=== PATIENT | female | born 1935 | race Caucasian/White ===

== ENCOUNTER 2016-09-05 07:30 | Inpatient (IN) | payer MEDICARE, BC ==
--- NOTE | 2016-08-22 16:41 | NUR ---
JOINT REPLACEMENT PREOP CLASS PATIENT ATTENDED JOINT REPLACEMENT PREOP CLASS. CASE MANAGEMENT CONTACT INFORMATION PROVIDED. EDUCATION WAS PROVIDED REGARDING WHAT TO EXPECT BEFORE, DURING AND AFTER SURGERY. INCLUDING: OVERVIEW OF ANATOMY AND PHYSIOLOGY HOSPITAL TREATMENT SCHEDULE THERAPY DEMONSTRATION CASE MANAGEMENT RESPONSIBILITIES DISCHARGE PLANNING EQUIPMENT NEEDS JOINT REPLACEMENT WORKBOOK ANTI-COAGULATION SURGERY STRONG NUTRITIONAL PROTOCOL DISCHARGE INSTRUCTIONS [facility] PATIENT PORTAL, WITH INSTRUCTIONS CJR AND PREOP SURVERY PREOP BATHING- CHG GIVEN ALL PATIENT'S QUESTIONS ANSWERED TO THEIR SATISFACTION. PATIENTS AND COACHES ENCOURAGED TO CALL WITH ANY ADDITIONAL QUESTIONS OR CONCERNS. CM FOLLOWING FOR TRANSITIONAL CARE PLANNING NEEDS DURING HOSPITALIZATION.
--- NOTE | 2016-08-30 10:52 | NUR ---
Prescription meds reviewed with patient to clarify discrepancies between PCP, Ortho, and patient provided list. Patient checked her meds with dosages on the Rx bottles at home during this phone call and seemed very clear with the times she took them. Courtesy letter faxed to Dr Petty, ortho med list corrected, changes made in [place] acute.
[~2016-09-05] VITALS: Ht 162.6 cm; Wt 57.2 kg
[2016-09-05] VITALS (22 sets, daily range): BP systolic 116–179; BP diastolic 57–84; PULSE 79–93; RESP 13–23; TEMP 97–97.7; O2SAT 84–97; Ht 162.6 cm; Wt 57.2 kg
[~2016-09-05 07:30] MED LIST: ACETAMINOPHEN 500 MG TABLET PO ONE; ASCO10007 PO; BIOT5000 PO; CALC1TAB PO; CINN500C14 PO; CRAN500C3 PO; DEXAMETHASONE 4mg/ml - 1ml INJECTION IV ONE; FAMOTIDINE 20mg IVPB 50 ML IV ONE; FURO20TA4 PO; LETR2.5T PO; LIDOCAINE 1% (10mg/ml) 2ml SDV SQ ONE; LISI-621 PO; LORA0.5T2 PO; METOCLOPRAMIDE 10mg/2ml INJECTION IV ONE; MULT-980 PO; NORMAL SALINE 1,000 ML IV SCH; NOZIN NASAL SWAB NS ONE; ONDANSETRON 4mg/2ml INJECTION IV ONE; VITA-357 PO
--- OUTSIDE RECORDS SUMMARY | 2016-09-05 08:13 | XMS REPORT | Continuity of Care Document ---
Author Author [facility] Organization [facility] Address [address] [place] [address] ;ext= Care Team Providers Care Accreditation Manager Name Role Phone Romain BARROSO Admitting Physician [phone] Romain BARROSO Attending Physician [phone] Juanito GARZON CP [phone] Hospital Admission Diagnosis Code Admission Diagnosis Date [id number] Derangement of medial meniscus Social History Element Description Code Description Smoking Status Code System Start Date End Date Smoking Status [id number] Never smoker SNOMED-CT Problems Code Code System Problem Name Start Date End Date Status 97347795 SNOMED-CT Hypertensive disorder current Active BACK AND NECK PROBLEMS Unknown Active LEG STENT Unknown Active 500761853 SNOMED-CT Infective cystitis Unknown Active 58207108 SNOMED-CT Headache Unknown Active 7823147 SNOMED-CT Arthritis Unknown Active 531655621 SNOMED-CT Seasonal allergy Unknown Active 28799802 SNOMED-CT Hiatal hernia Unknown Active 780143141 SNOMED-CT (Carditis NOS) or (heart disease NOS) HX Active 711176577 SNOMED-CT Acute peptic ulcer NOS HX Active 247448589 SNOMED-CT Malignant tumor of breast HX Active 353258215 SNOMED-CT Allergy to pollen HX Active Medications RxNorm Medication Dose Route Instructions Indications Start Date End Date Status 009189 Acetaminophen 325 MG / Hydrocodone Bitartrate 5 MG Oral Tablet 1 tablet Oral orally every 4 to 6 hours as needed. pain Active 1151 Ascorbic Acid 1 gram Oral orally 2 times per day Active 1151 Ascorbic Acid Oral orally every day Active 1191 Aspirin 81 milligram Oral orally every day Active 1588 Biotin 1 milligram Oral orally 2 times a day Active 727236 Calcium Carbonate 1250 MG Oral Tablet 600 milligram Oral orally 3 times a day (administer after food or a meal) Active 186905 Calcium Carbonate 1500 MG Oral Tablet 600 milligram Oral orally 3 times a day (administer after food or a meal) Active cinnamon 500 mg Oral orally 2 times a day Active 08609 ferrous sulfate 325 milligram Oral orally every day Active 003883 Furosemide 20 MG Oral Tablet 20 milligram Oral orally every day Active 19991023 letrozole 2.5 MG Oral Tablet 2.5 milligram Oral orally every day Active 233395 Lisinopril 20 MG Oral Tablet 20 milligram Oral orally 2 times per day Active 6470 Lorazepam 0.5 milligram Oral orally every day at bedtime Active 6470 Lorazepam 0.5 milligram Oral orally every day at bedtime Active 6582 Magnesium Oxide 400 milligram Oral orally 2 times per day Active Multivitamins 1 capsule Oral orally every day Active 1472681 [place]-3 Acid Ethyl Esters (SHELTER) 1250 MG Oral Capsule 1000 milligram Oral orally 2 times a day (administer with food) Active 72345 Wheat germ oil 1000 unit Oral orally every day Active 469776 Amiodarone hydrochloride 200 MG Oral Tablet 200 milligram Oral orally every day (administer consistently in regards to food/meals) No Longer Active 95576 carvedilol 12.5 milligram Oral orally 2 times per day (administer with food) No Longer Active 075580 Fexofenadine hydrochloride 180 MG Oral Tablet 180 milligram Oral orally prn as needed. 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 There is new subchondral impaction deformityinvolving the posterior lateral femoral condyle adjacent to the resectedportion of the meniscus. The overlying cartilage appears intact.There has also been surgery to the medial meniscus. The posterior horn andbody free edge is truncated. Medial compartment cartilage is intact.The anterior and posterior cruciate ligaments are intact.The medial and lateral collateral ligament is complex is are intact.Quadriceps and patellar tendons are intact. Patellofemoral alignment ismaintained.Released By WILL GIBSON, MDDate: 06/16/2016 14:02 Vital Signs * No data in the system Plan of Care * No data in the system Procedures * No data in the system Encounters Date Code Diagnosis Status (ICD10) - D62367 OTH DERANG OTH MED MENISCUS LT KNEE Active Immunizations Vaccine Code Code System Vaccine Name Date Status 109 CVX pneumococcal vaccine, NOS 01/19/2011 Completed 88 CVX influenza virus vaccine, NOS 01/20/2012 Completed Functional Status * No data in the system Hospital Discharge Instructions * No data in the system
--- OUTSIDE RECORDS SUMMARY | 2016-09-05 08:13 | XMS REPORT | Continuity of Care Document ---
Author Author [facility] Organization [facility] Address [address] [place] [address] ;ext= Care Team Providers Care Supervisor Dental Laboratory Name Role Phone Manjula TORRES Admitting Physician [phone] Manjula TORRES Attending Physician [phone] Hospital Admission Diagnosis Code Admission Diagnosis Date [id number] Knee pain Social History Element Description Code Description Smoking Status Code System Start Date End Date Smoking Status [id number] Smoker, current status unknown SNOMED-CT Problems Code Code System Problem Name Start Date End Date Status 11260930 SNOMED-CT Hypertensive disorder current Active 092721688 SNOMED-CT (Carditis NOS) or (heart disease NOS) HX Active 521722341 SNOMED-CT Acute peptic ulcer NOS HX Active 837341172 SNOMED-CT Malignant tumor of breast HX Active 892212556 SNOMED-CT Allergy to pollen HX Active Medications RxNorm Medication Dose Route Instructions Indications Start Date End Date Status 813745 Amiodarone hydrochloride 200 MG Oral Tablet 200 milligram Oral orally every day (administer consistently in regards to food/meals) Active 1191 Aspirin 81 milligram Oral orally every day Active 99965 carvedilol 12.5 milligram Oral orally 2 times per day (administer with food) Active 355708 Fexofenadine hydrochloride 180 MG Oral Tablet 180 milligram Oral orally prn as needed. allergy symptoms Active 940665 Furosemide 20 MG Oral Tablet 20 milligram Oral orally every day Active Lactobacillus Bifidus 1 capsule Oral orally every day Active 901826 letrozole 2.5 MG Oral Tablet 2.5 milligram Oral orally every day Active 592569 Lisinopril 20 MG Oral Tablet 20 milligram Oral orally every day Active 6582 Magnesium Oxide 241.3 milligram Oral orally every day Active 612177 Potassium Chloride 10 MEQ Extended Release Oral Capsule 10 milliequivalent Oral orally every day Active Allergies * No Known Allergies Results Radiology Results Order: [id number] Tibia/fibula LT 2 views* Exam Completion Date:09/07/2015 14:56 INDICATION: pain lt knee LEFT TIBIA-FIBULA 2-VIEWS (AP & LAT): COMPARISON: NoneFINDINGS: There is no evidence of fracture, dislocation, or joint narrowing.IMPRESSION: Negative x-raysReleased By DESTINEE LESLIEate: 15:54 Order: [id number] Knee LT 3 views* Exam Completion Date:09/07/2015 14:56 INDICATION: PAINLEFT KNEE 3-VIEWS SUPINE (AP, INTERNAL OBL & LAT):COMPARISON: NoneFINDINGS: There is no evidence of fracture, dislocation, or joint narrowing.IMPRESSION: Negative x-raysReleased By DESTINEE LESLIEate: 15:54 Vital Signs * No data in the system Plan of Care * No data in the system Procedures * No data in the system Encounters Date Code Diagnosis Status (ICD10) - P89575 PAIN IN LEFT KNEE Active Immunizations Vaccine Code Code System Vaccine Name Date Status 109 CVX pneumococcal vaccine, NOS 01/19/2011 Completed 88 CVX influenza virus vaccine, NOS 01/20/2012 Completed Functional Status * No data in the system Hospital Discharge Instructions * No data in the system
--- OUTSIDE RECORDS SUMMARY | 2016-09-05 08:13 | XMS REPORT | Continuity of Care Document ---
Author Author [facility] Organization [facility] Address [address] [place] [address] ;ext= Care Team Providers Care Industrial Sales Manager Name Role Phone Romain BARROSO Admitting Physician [phone] Romain BARROSO Attending Physician [phone] Hospital Admission Diagnosis * No data in the System Social History Element Description Code Description Smoking Status Code System Start Date End Date Smoking Status 670416167 Unknown if ever smoked SNOMED-CT Problems Code Code System Problem Name Start Date End Date Status 60462650 SNOMED-CT Hypertensive disorder current Active BACK AND NECK PROBLEMS Unknown Active LEG STENT Unknown Active 153159796 SNOMED-CT Infective cystitis Unknown Active 01332806 SNOMED-CT Headache Unknown Active 8721036 SNOMED-CT Arthritis Unknown Active 629994981 SNOMED-CT Seasonal allergy Unknown Active 78542894 SNOMED-CT Hiatal hernia Unknown Active 782536987 SNOMED-CT (Carditis NOS) or (heart disease NOS) HX Active 765574038 SNOMED-CT Acute peptic ulcer NOS HX Active 995166293 SNOMED-CT Malignant tumor of breast HX Active 060693811 SNOMED-CT Allergy to pollen HX Active Medications RxNorm Medication Dose Route Instructions Indications Start Date End Date Status 119858 Acetaminophen 325 MG / Hydrocodone Bitartrate 5 MG Oral Tablet 1 tablet Oral orally every 4 to 6 hours as needed. pain Active 1151 Ascorbic Acid 1 gram Oral orally 2 times per day Active 1151 Ascorbic Acid Oral orally every day Active 1191 Aspirin 81 milligram Oral orally every day Active 1588 Biotin 1 milligram Oral orally 2 times a day Active 946077 Calcium Carbonate 1250 MG Oral Tablet 600 milligram Oral orally 3 times a day (administer after food or a meal) Active 396780 Calcium Carbonate 1500 MG Oral Tablet 600 milligram Oral orally 3 times a day (administer after food or a meal) Active cinnamon 500 mg Oral orally 2 times a day Active 68128 ferrous sulfate 325 milligram Oral orally every day Active 523439 Furosemide 20 MG Oral Tablet 20 milligram Oral orally every day Active 19991023 letrozole 2.5 MG Oral Tablet 2.5 milligram Oral orally every day Active 653251 Lisinopril 20 MG Oral Tablet 20 milligram Oral orally 2 times per day Active 6470 Lorazepam 0.5 milligram Oral orally every day at bedtime Active 6470 Lorazepam 0.5 milligram Oral orally every day at bedtime Active 6582 Magnesium Oxide 400 milligram Oral orally 2 times per day Active Multivitamins 1 capsule Oral orally every day Active 8784126 [place]-3 Acid Ethyl Esters (FCI) 1250 MG Oral Capsule 1000 milligram Oral orally 2 times a day (administer with food) Active 75705 Wheat germ oil 1000 unit Oral orally every day Active 553460 Amiodarone hydrochloride 200 MG Oral Tablet 200 milligram Oral orally every day (administer consistently in regards to food/meals) No Longer Active 61576 carvedilol 12.5 milligram Oral orally 2 times per day (administer with food) No Longer Active 413550 Fexofenadine hydrochloride 180 MG Oral Tablet 180 milligram Oral orally prn as needed. allergy symptoms No Longer Active Lactobacillus Bifidus 1 capsule Oral orally every day No Longer Active 19991023 letrozole 2.5 MG Oral Tablet 2.5 milligram Oral orally every day No Longer Active 584543 Potassium Chloride 10 MEQ Extended Release Oral Capsule 10 milliequivalent Oral orally every day No Longer Active Allergies * No Known Allergies Results Radiology Results Order: NBNJNWB NM Bone And/Or Joint Whole Body* Exam Completion Date:06/14/2016 13:52 INDICATION: C50.411 - Breast CA, R97.8 - ABN. Tumor Markers, Left knee pain,OA left kneeNM Bone And/Or Joint Whole Body: Technique: Approximately 24.6 millicuries oftechnetium 99m MDP were injected IV. Anterior and posterior planar images ofthe body were then obtained.Comparison: noneFindings: Right hip arthroplasty. No evidence of loosening or infection. Thereis mild degenerative appearing uptake in the lateral compartment of the leftknee. The whole body bone scan is otherwise negative. No evidence of skeletalmetastases.Released By DESTINEE CARSONate: 06/14/2016 14:54 Vital Signs * No data in the system Plan of Care * No data in the system Procedures * No data in the system Encounters * No data in the system Immunizations Vaccine Code Code System Vaccine Name Date Status 109 CVX pneumococcal vaccine, NOS 01/19/2011 Completed 88 CVX influenza virus vaccine, NOS 01/20/2012 Completed Functional Status * No data in the system Hospital Discharge Instructions * No data in the system
--- OUTSIDE RECORDS SUMMARY | 2016-09-05 08:13 | XMS REPORT | Continuity of Care Document ---
Author Author [facility] Organization [facility] Address [address] [place] [address] ;ext= Care Team Providers Care Wetlands Technician Name Role Phone Romain BARROSO Admitting Physician [phone] Romain BARROSO Attending Physician [phone] Hospital Admission Diagnosis Code Admission Diagnosis Date [id number] Idiopathic osteoarthritis Social History Element Description Code Description Smoking Status Code System Start Date End Date Smoking Status 5973140 Former smoker SNOMED-CT 2010 Problems Code Code System Problem Name Start Date End Date Status 10920552 SNOMED-CT Hypertensive disorder current Active BACK AND NECK PROBLEMS Unknown Active LEG STENT Unknown Active 563566886 SNOMED-CT Infective cystitis Unknown Active 36917402 SNOMED-CT Headache Unknown Active 9932331 SNOMED-CT Arthritis Unknown Active 725768606 SNOMED-CT Seasonal allergy Unknown Active 26147318 SNOMED-CT Hiatal hernia Unknown Active 822548207 SNOMED-CT (Carditis NOS) or (heart disease NOS) HX Active 682752671 SNOMED-CT Acute peptic ulcer NOS HX Active 606010381 SNOMED-CT Malignant tumor of breast HX Active 462522987 SNOMED-CT Allergy to pollen HX Active Medications RxNorm Medication Dose Route Instructions Indications Start Date End Date Status 097897 Acetaminophen 325 MG / Hydrocodone Bitartrate 5 MG Oral Tablet 1 tablet Oral orally every 4 to 6 hours as needed. pain Active 1151 Ascorbic Acid 1 gram Oral orally 2 times per day Active 1151 Ascorbic Acid Oral orally every day Active 1191 Aspirin 81 milligram Oral orally every day Active 1588 Biotin 1 milligram Oral orally 2 times a day Active 1897 Calcium Carbonate 600 milligram Oral orally 3 times a day (administer after food or a meal) Active cinnamon 500 mg Oral orally 2 times a day Active 17577 ferrous sulfate 325 milligram Oral orally every day Active 5359 Furosemide 20 milligram Oral orally every day Active 270293 letrozole 2.5 MG Oral Tablet 2.5 milligram Oral orally every day Active 72157 Lisinopril 20 milligram Oral orally 2 times per day Active 6470 Lorazepam 0.5 milligram Oral orally every day at bedtime Active 6470 Lorazepam 0.5 milligram Oral orally every day at bedtime Active 6582 Magnesium Oxide 400 milligram Oral orally 2 times per day Active Multivitamins 1 capsule Oral orally every day Active 0293628 [place]-3 Acid Ethyl Esters (CORRECTION) 1250 MG Oral Capsule 1000 milligram Oral orally 2 times a day (administer with food) Active 78466 Wheat germ oil 1000 unit Oral orally every day Active 703 Amiodarone 200 milligram Oral orally every day (administer consistently in regards to food/meals) No Longer Active 31495 carvedilol 12.5 milligram Oral orally 2 times per day (administer with food) No Longer Active 53152 fexofenadine 180 milligram Oral orally prn as needed. allergy symptoms No Longer Active Lactobacillus Bifidus 1 capsule Oral orally every day No Longer Active 187968 letrozole 2.5 MG Oral Tablet 2.5 milligram Oral orally every day No Longer Active 8591 Potassium Chloride 10 milliequivalent Oral orally every day No Longer Active Allergies * No Known Allergies Results Radiology Results Order: NBNJNWB NM Bone And/Or Joint Whole Body* Exam Completion Date:01/26/2016 14:30 INDICATION: M17.12 Unilateral primary osteoarthritis, LT knee; M23.332 Othermeniscus derangNM Bone And/Or Joint Whole Body: Technique: Approximately 29.0 millicuries oftechnetium 99m MDP were injected IV. Anterior and posterior planar images ofthe body were then obtained.Comparison: Limited area bone scan Findings: Allowing for differences in technique, the left knee has not changedsignificantly in appearance since 01/12/2016. Again seen is mild arthriticappearing uptake in the left knee. Right hip arthroplasty. No abnormal uptakeis identified about this arthroplasty. The whole body bone scan is otherwisenegative. No other abnormal foci of increased uptake are identified. Noevidence of acute fracture. No evidence of skeletal metastases.Released By BRAVO FERNANDEZ, MDDate: 01/27/2016 08:34 Vital Signs * No data in the system Plan of Care * No data in the system Procedures * No data in the system Encounters Date Code Diagnosis Status (ICD10) - M1712 UNI PRIM OSTEOARTHRITIS LT KNEE Active Immunizations Vaccine Code Code System Vaccine Name Date Status 109 CVX pneumococcal vaccine, NOS 01/19/2011 Completed 88 CVX influenza virus vaccine, NOS 01/20/2012 Completed Functional Status * No data in the system Hospital Discharge Instructions * No data in the system
--- OUTSIDE RECORDS SUMMARY | 2016-09-05 08:13 | XMS REPORT | Continuity of Care Document ---
Author Author [facility] Organization [facility] Address [address] [place] [address] ;ext= Care Team Providers Care Flight Control Specialist Name Role Phone Carlos Manuel DUARTE Admitting Physician [phone] Carlos Manuel DUARTE Attending Physician [phone] Hospital Admission Diagnosis Code Admission Diagnosis Date Derangement of medial meniscus Social History Element Description Code Description Smoking Status Code System Start Date End Date Smoking Status 7328557 Former smoker SNOMED-CT Problems Code Code System Problem Name Start Date End Date Status 62382136 SNOMED-CT Hypertensive disorder current Active 762428074 SNOMED-CT (Carditis NOS) or (heart disease NOS) HX Active 424533892 SNOMED-CT Acute peptic ulcer NOS HX Active 874692218 SNOMED-CT Malignant tumor of breast HX Active 974373137 SNOMED-CT Allergy to pollen HX Active Medications RxNorm Medication Dose Route Instructions Indications Start Date End Date Status 810852 Amiodarone hydrochloride 200 MG Oral Tablet 200 milligram Oral orally every day (administer consistently in regards to food/meals) Active 1191 Aspirin 81 milligram Oral orally every day Active 28641 carvedilol 12.5 milligram Oral orally 2 times per day (administer with food) Active 050997 Fexofenadine hydrochloride 180 MG Oral Tablet 180 milligram Oral orally prn as needed. allergy symptoms Active 912681 Furosemide 20 MG Oral Tablet 20 milligram Oral orally every day Active Lactobacillus Bifidus 1 capsule Oral orally every day Active 779063 letrozole 2.5 MG Oral Tablet 2.5 milligram Oral orally every day Active 807738 Lisinopril 20 MG Oral Tablet 20 milligram Oral orally every day Active 6582 Magnesium Oxide 241.3 milligram Oral orally every day Active 739387 Potassium Chloride 10 MEQ Extended Release Oral Capsule 10 milliequivalent Oral orally every day Active Allergies * No Known Allergies Results Radiology Results Order: MRLJLWO MR LT Low Ext Joint W/O Contrast* Exam Completion Date:2015 13:00 INDICATION: M23.332-Left other meniscus derangements, other medial meniscus, left kneeMR LT Low Ext Joint W/O Contrast: There is a tear of the posterior horn of themedial meniscus.Normal appearance of the cruciate ligaments. Normal appearance of thecollateral ligaments. Normal appearance of the lateral meniscus.No bone edema to suggest contusion or bruise. No cartilaginous injury. Noosteochondral defect. No bone bruise or contusion. No significant degenerativefindings. The patellar tendon is normal. Small joint effusion. Nochondromalacia of the patella.Released By MAEVE VALDIVIA, MDDate: 10/01/2015 14:24 Vital Signs * No data in the system Plan of Care * No data in the system Procedures * No data in the system Encounters Date Code Diagnosis Status (ICD10) - Q50479 OTH DERANG OTH MED MENISCUS LT KNEE Active Immunizations Vaccine Code Code System Vaccine Name Date Status 109 CVX pneumococcal vaccine, NOS 01/19/2011 Completed 88 CVX influenza virus vaccine, NOS 01/20/2012 Completed Functional Status * No data in the system Hospital Discharge Instructions * No data in the system
--- OUTSIDE RECORDS SUMMARY | 2016-09-05 08:14 | XMS REPORT | Continuity of Care Document ---
Author Author [facility] Organization [facility] Address [address] [place] [address] ;ext= Care Team Providers Care Laser Beam Machine Operator Name Role Phone Saulo AYALA Admitting Physician [phone] Saulo AYALA Attending Physician [phone] Hospital Admission Diagnosis Code Admission Diagnosis Date [id number] Derangement of medial meniscus Social History Element Description Code Description Smoking Status Code System Start Date End Date Smoking Status [id number] Former smoker SNOMED-CT 2010 Problems Code Code System Problem Name Start Date End Date Status 45142106 SNOMED-CT Hypertensive disorder current Active BACK AND NECK PROBLEMS Unknown Active LEG STENT Unknown Active [id number] SNOMED-CT Infective cystitis Unknown Active 80380358 SNOMED-CT Headache Unknown Active 9393617 SNOMED-CT Arthritis Unknown Active 526303627 SNOMED-CT Seasonal allergy Unknown Active 08081535 SNOMED-CT Hiatal hernia Unknown Active 825782254 SNOMED-CT (Carditis NOS) or (heart disease NOS) HX Active 522924846 SNOMED-CT Acute peptic ulcer NOS HX Active 849745094 SNOMED-CT Malignant tumor of breast HX Active 355834119 SNOMED-CT Allergy to pollen HX Active Medications RxNorm Medication Dose Route Instructions Indications Start Date End Date Status 617829 Acetaminophen 325 MG / Hydrocodone Bitartrate 5 MG Oral Tablet 1 tablet Oral orally every 4 to 6 hours as needed. pain Active 1151 Ascorbic Acid 1 gram Oral orally 2 times per day Active 1151 Ascorbic Acid Oral orally every day Active 1191 Aspirin 81 milligram Oral orally every day Active 1588 Biotin 1 milligram Oral orally 2 times a day Active 041398 Calcium Carbonate 1250 MG Oral Tablet 600 milligram Oral orally 3 times a day (administer after food or a meal) Active 306116 Calcium Carbonate 1500 MG Oral Tablet 600 milligram Oral orally 3 times a day (administer after food or a meal) Active cinnamon 500 mg Oral orally 2 times a day Active 11083 ferrous sulfate 325 milligram Oral orally every day Active 410989 Furosemide 20 MG Oral Tablet 20 milligram Oral orally every day Active 19991023 letrozole 2.5 MG Oral Tablet 2.5 milligram Oral orally every day Active 395261 Lisinopril 20 MG Oral Tablet 20 milligram Oral orally 2 times per day Active 6470 Lorazepam 0.5 milligram Oral orally every day at bedtime Active 6470 Lorazepam 0.5 milligram Oral orally every day at bedtime Active 6582 Magnesium Oxide 400 milligram Oral orally 2 times per day Active Multivitamins 1 capsule Oral orally every day Active 5389883 [place]-3 Acid Ethyl Esters (LONG TERM) 1250 MG Oral Capsule 1000 milligram Oral orally 2 times a day (administer with food) Active 44988 Wheat germ oil 1000 unit Oral orally every day Active 433269 Amiodarone hydrochloride 200 MG Oral Tablet 200 milligram Oral orally every day (administer consistently in regards to food/meals) No Longer Active 77919 carvedilol 12.5 milligram Oral orally 2 times per day (administer with food) No Longer Active 718462 Fexofenadine hydrochloride 180 MG Oral Tablet 180 milligram Oral orally prn as needed. allergy symptoms No Longer Active Lactobacillus Bifidus 1 capsule Oral orally every day No Longer Active 19991023 letrozole 2.5 MG Oral Tablet 2.5 milligram Oral orally every day No Longer Active 844977 Potassium Chloride 10 MEQ Extended Release Oral Capsule 10 milliequivalent Oral orally every day No Longer Active Allergies * No Known Allergies Results * No data in the system Vital Signs Vitals Value Date Body Temperature 98.1 F 11/25/2015 Respiratory Rate 20 11/25/2015 O2% BldC Oximetry 95 11/25/2015 BP Systolic 158 mmHg 11/25/2015 BP Diastolic 64 mmHg 11/25/2015 Height 64 in 11/25/2015 Weight Measured 120 lbs 11/25/2015 BSA (Body Surface Area) 1.37453 11/25/2015 BMI (Body Mass Index) 20.7 11/25/2015 Plan of Care * No data in the system Procedures Code Code System Procedure Name Target Site Date of Procedure 72894 CPT4 ARTHRS KNEE W/MENISCECTOMY MED&LAT W/SHA Encounters Date Code Diagnosis Status (ICD10) - Y94692 OTH DERANG OTH MED MENISCUS LT KNEE Active Immunizations Vaccine Code Code System Vaccine Name Date Status 109 CVX pneumococcal vaccine, NOS 01/19/2011 Completed 88 CVX influenza virus vaccine, NOS 01/20/2012 Completed Functional Status * No data in the system Hospital Discharge Instructions * Ortho* Discharge Instructions* We are giving you the following information and general instruction to help make your recovery go as smooth as possible. * It is very important to follow any verbal or written instructions your surgeon has given you along with the following: * You had medication and/or anesthesia that will make you drowsy today and even into tomorrow. * It is imperative that you: * - NOT drive, operate any power tools or machinery, or make important decisions until 24 hrs after your surgery. * - spend the rest of the day taking it easy and resting. * - have assistance when you are up to walk. * Pain* PAIN - If you need pain pills, start them before pain becomes intense. * Pain pills (as well as antibiotics) are less upsetting to your stomach if you take with food. * CONSTIPATION - medication may cause constipation - drink plenty of water and juice. * You may use an over the counter laxative, if needed. If it continues, contact physician. * MEDICATION(S) ORDERED BY YOUR SURGEON:* Cullen 5/325mg 2 tablets given at 4:00 PM. * Hydrocodone 5/325. Take 1-2 tablets every 4 hrs as needed for pain . * Take 1 Aspirin 325 mg twice a day for one month. * Post Operative Instructions* Keep dressing clean, dry, and in place. Physical therapy will do your first dressing change. Then you may go home shower, and apply a light non stick dressing. Do NOT put any ointment on incision sites. * Ice to extremity for 20 minutes every 2 hours for the 1st 48 hours then as needed. * Exercise toes and ankle frequently. * Straight leg raises (3 - 4 times per day) * Elevate affected extremity * Weight Bearing As Tolerated * PLEASE TAKE NOTE:* ~If you have excessive or persistant pain, swelling, bleeding, nausea, or vomiting. * ~Any signs of infection such as running a temperature, redness, swelling or drainage at incision, or other concerns, * ~ Call [facility] at [phone], any time 24 hr a day. * Dr. Ayala [phone] * YOUR NEXT APPOINTMENT IS:* Physical Thearpy starting tomorrow (11/26/15) at 11 :15 at [facility].Follow-up with 12/06/15 @ 3:00 PM in his [place] office.
--- OUTSIDE RECORDS SUMMARY | 2016-09-05 08:14 | XMS REPORT | Continuity of Care Document ---
Author Author [facility] Organization [facility] Address [address] [place] [address] ;ext= Care Team Providers Care Community Arts Worker Name Role Phone Carlos Manuel DUARTE Admitting Physician [phone] Carlos Manuel DUARTE Attending Physician [phone] Hospital Admission Diagnosis Code Admission Diagnosis Date [id number] Idiopathic osteoarthritis Social History Element Description Code Description Smoking Status Code System Start Date End Date Smoking Status [id number] Never smoker SNOMED-CT Problems Code Code System Problem Name Start Date End Date Status 90408232 SNOMED-CT Hypertensive disorder current Active BACK AND NECK PROBLEMS Unknown Active LEG STENT Unknown Active 547676282 SNOMED-CT Infective cystitis Unknown Active 71470649 SNOMED-CT Headache Unknown Active 4267366 SNOMED-CT Arthritis Unknown Active 397141660 SNOMED-CT Seasonal allergy Unknown Active 74611470 SNOMED-CT Hiatal hernia Unknown Active 384811453 SNOMED-CT (Carditis NOS) or (heart disease NOS) HX Active 057616411 SNOMED-CT Acute peptic ulcer NOS HX Active 941928150 SNOMED-CT Malignant tumor of breast HX Active 500111953 SNOMED-CT Allergy to pollen HX Active Medications RxNorm Medication Dose Route Instructions Indications Start Date End Date Status 255150 Acetaminophen 325 MG / Hydrocodone Bitartrate 5 MG Oral Tablet 1 tablet Oral orally every 4 to 6 hours as needed. pain Active 1151 Ascorbic Acid 1 gram Oral orally 2 times per day Active 1151 Ascorbic Acid Oral orally every day Active 1191 Aspirin 81 milligram Oral orally every day Active 1588 Biotin 1 milligram Oral orally 2 times a day Active 699119 Calcium Carbonate 1250 MG Oral Tablet 600 milligram Oral orally 3 times a day (administer after food or a meal) Active 296514 Calcium Carbonate 1500 MG Oral Tablet 600 milligram Oral orally 3 times a day (administer after food or a meal) Active cinnamon 500 mg Oral orally 2 times a day Active 57071 ferrous sulfate 325 milligram Oral orally every day Active 959821 Furosemide 20 MG Oral Tablet 20 milligram Oral orally every day Active 19991023 letrozole 2.5 MG Oral Tablet 2.5 milligram Oral orally every day Active 273527 Lisinopril 20 MG Oral Tablet 20 milligram Oral orally 2 times per day Active 6470 Lorazepam 0.5 milligram Oral orally every day at bedtime Active 6470 Lorazepam 0.5 milligram Oral orally every day at bedtime Active 6582 Magnesium Oxide 400 milligram Oral orally 2 times per day Active Multivitamins 1 capsule Oral orally every day Active 1656427 [place]-3 Acid Ethyl Esters (SENIOR CARE) 1250 MG Oral Capsule 1000 milligram Oral orally 2 times a day (administer with food) Active 48799 Wheat germ oil 1000 unit Oral orally every day Active 194848 Amiodarone hydrochloride 200 MG Oral Tablet 200 milligram Oral orally every day (administer consistently in regards to food/meals) No Longer Active 90025 carvedilol 12.5 milligram Oral orally 2 times per day (administer with food) No Longer Active 200108 Fexofenadine hydrochloride 180 MG Oral Tablet 180 milligram Oral orally prn as needed. allergy symptoms No Longer Active Lactobacillus Bifidus 1 capsule Oral orally every day No Longer Active 19991023 letrozole 2.5 MG Oral Tablet 2.5 milligram Oral orally every day No Longer Active 655288 Potassium Chloride 10 MEQ Extended Release Oral Capsule 10 milliequivalent Oral orally every day No Longer Active Allergies * No Known Allergies Results Radiology Results Order: [id number] NM Bone And/Or Join Limited Area* Exam Completion Date:2015 14:00 INDICATION: M17.12 Unilateral primary osteoarthritis, left kneeNM Bone And/Or Join Limited Area:Bone scan was performed of the knees following injection of 26.1 [id number] MDP.Findings: There is asymmetric increased activity within the lateral femoralcondyle of the right distal femur. There is also uptake within the patella. Onthe left there is focal uptake noted posteriorly within one of the femoralcondyles. This is not identified on the anterior or posterior planar images.The uptake is noted at the articular margin and is most likely from arthritis.Released By WILL GIBSON, MDDate: 01/12/2016 14:43 Vital Signs * No data in the [...]
--- OUTSIDE RECORDS SUMMARY | 2016-09-05 08:14 | XMS REPORT | Continuity of Care Document ---
Author Author [facility] Organization [facility] Address [address] [place] [address] ;ext= Care Team Providers Care Level Designer Name Role Phone Manjula TORRES Admitting Physician [phone] Manjula TORRES Attending Physician [phone] Hospital Admission Diagnosis Code Admission Diagnosis Date Elbow joint pain Social History Element Description Code Description Smoking Status Code System Start Date End Date Smoking Status 2346812 Former smoker SNOMED-CT Problems Code Code System Problem Name Start Date End Date Status 28394375 SNOMED-CT Hypertensive disorder current Active 531498078 SNOMED-CT (Carditis NOS) or (heart disease NOS) HX Active 677932467 SNOMED-CT Acute peptic ulcer NOS HX Active 245802394 SNOMED-CT Malignant tumor of breast HX Active 945010474 SNOMED-CT Allergy to pollen HX Active Medications RxNorm Medication Dose Route Instructions Indications Start Date End Date Status 269583 Amiodarone hydrochloride 200 MG Oral Tablet 200 milligram Oral orally every day (administer consistently in regards to food/meals) Active 1191 Aspirin 81 milligram Oral orally every day Active 08495 carvedilol 12.5 milligram Oral orally 2 times per day (administer with food) Active 116237 Fexofenadine hydrochloride 180 MG Oral Tablet 180 milligram Oral orally prn as needed. allergy symptoms Active 638623 Furosemide 20 MG Oral Tablet 20 milligram Oral orally every day Active Lactobacillus Bifidus 1 capsule Oral orally every day Active 736973 letrozole 2.5 MG Oral Tablet 2.5 milligram Oral orally every day Active 926103 Lisinopril 20 MG Oral Tablet 20 milligram Oral orally every day Active 6582 Magnesium Oxide 241.3 milligram Oral orally every day Active 214247 Potassium Chloride 10 MEQ Extended Release Oral Capsule 10 milliequivalent Oral orally every day Active Allergies * No Known Allergies Results Radiology Results Order: [id number] Elbow LT 3 views* Exam Completion Date:08/05/2015 15:25 INDICATION: pain lt forearmLEFT ELBOW 3-VIEWS (AP, OBLIQUE & LAT): COMPARISON: NoneFINDINGS: Left elbow joint effusion. If there has been acute trauma thissuggests an intra-articular fracture. There are fairly marked changes ofdegenerative arthritis in the left elbow however. These changes ofdegenerative arthritis could be the etiology of the effusion. If a fracture nasir possibility however a CT examination may be helpful. Released By BRAVO FERNANDEZ , MDDate: 08/05/2015 15:41 Order: [id number] Forearm LT 2 views* Exam Completion Date:08/05/2015 15:25 INDICATION: pain lt forearmLEFT FOREARM 2-VIEWS EACH ( AP & LAT): COMPARISON: NoneFINDINGS: Again seen are hypertrophic and degenerative changes in the leftelbow. The left forearm is negative. Released By BRAVO FERNANDEZ, DESTINEEate: 2015 15:42 Vital Signs * No data in the system Plan of Care * No data in the system Procedures * No data in the system Encounters Date Code Diagnosis Status (ICD10) - Y88480 PAIN IN LEFT ELBOW Active Immunizations Vaccine Code Code System Vaccine Name Date Status 109 CVX pneumococcal vaccine, NOS 01/19/2011 Completed 88 CVX influenza virus vaccine, NOS 01/20/2012 Completed Functional Status * No data in the system Hospital Discharge Instructions * No data in the system
--- OUTSIDE RECORDS SUMMARY | 2016-09-05 08:14 | XMS REPORT | Continuity of Care Document ---
Author Author [facility] Organization [facility] Address [address] [place] [address] ;ext= Care Team Providers Care Marketing Clerk Name Role Phone Manjula TORRES Admitting Physician [phone] Manjula TORRES Attending Physician [phone] Hospital Admission Diagnosis * No data in the System Social History Element Description Code Description Smoking Status Code System Start Date End Date Smoking Status 5636838 Former smoker SNOMED-CT Problems Code Code System Problem Name Start Date End Date Status 13132274 SNOMED-CT Hypertensive disorder current Active 912887765 SNOMED-CT (Carditis NOS) or (heart disease NOS) HX Active 696944558 SNOMED-CT Acute peptic ulcer NOS HX Active 972150954 SNOMED-CT Malignant tumor of breast HX Active 924729477 SNOMED-CT Allergy to pollen HX Active Medications RxNorm Medication Dose Route Instructions Indications Start Date End Date Status 336519 Amiodarone hydrochloride 200 MG Oral Tablet 200 milligram Oral orally every day (administer consistently in regards to food/meals) Active 1191 Aspirin 81 milligram Oral orally every day Active 03832 carvedilol 12.5 milligram Oral orally 2 times per day (administer with food) Active 272029 Fexofenadine hydrochloride 180 MG Oral Tablet 180 milligram Oral orally prn as needed. allergy symptoms Active 787425 Furosemide 20 MG Oral Tablet 20 milligram Oral orally every day Active Lactobacillus Bifidus 1 capsule Oral orally every day Active 459260 letrozole 2.5 MG Oral Tablet 2.5 milligram Oral orally every day Active 520547 Lisinopril 20 MG Oral Tablet 20 milligram Oral orally every day Active 6582 Magnesium Oxide 241.3 milligram Oral orally every day Active 072481 Potassium Chloride 10 MEQ Extended Release Oral Capsule 10 milliequivalent Oral orally every day Active Allergies * No Known Allergies Results Radiology Results Order: [id number] Elbow LT 3 views* Exam Completion Date:08/05/2015 [...] BRAVO FERNANDEZ , MDDate: 08/05/2015 15:41 Order: [id number] Forearm LT 2 views* Exam Completion Date:08/05/2015 15:25 INDICATION: pain lt forearmLEFT FOREARM 2-VIEWS EACH ( AP & LAT): COMPARISON: NoneFINDINGS: Again seen are hypertrophic and degenerative changes in the leftelbow. The left forearm is negative. Released By BRAVO FERNANDEZ, MDDate: 2015 15:42 Vital Signs * No data [...]
--- OUTSIDE RECORDS SUMMARY | 2016-09-05 08:14 | XMS REPORT | Continuity of Care Document ---
Author Author [facility] Organization [facility] Address [address] [place] [address] ;ext= Care Team Providers Care Deck Molder Name Role Phone Romain BARROSO Admitting Physician [phone] Romain BARROSO Attending Physician [phone] Hospital Admission Diagnosis * No data in the System Social History Element Description Code Description Smoking Status Code System Start Date End Date Smoking Status 2259592 Former smoker SNOMED-CT 2010 Problems Code Code System Problem Name Start Date End Date Status 55715697 SNOMED-CT Hypertensive disorder current Active BACK AND NECK PROBLEMS Unknown Active LEG STENT Unknown Active 043476262 SNOMED-CT Infective cystitis Unknown Active 65748281 SNOMED-CT Headache Unknown Active 1638819 SNOMED-CT Arthritis Unknown Active 965500713 SNOMED-CT Seasonal allergy Unknown Active 41990218 SNOMED-CT Hiatal hernia Unknown Active 060595362 SNOMED-CT (Carditis NOS) or (heart disease NOS) HX Active 035469615 SNOMED-CT Acute peptic ulcer NOS HX Active 412704286 SNOMED-CT Malignant tumor of breast HX Active 409014443 SNOMED-CT Allergy to pollen HX Active Medications RxNorm Medication Dose Route Instructions Indications Start Date End Date Status 683574 Acetaminophen 325 MG / Hydrocodone Bitartrate 5 MG Oral Tablet 1 tablet Oral orally every 4 to 6 hours as needed. pain Active 1151 Ascorbic Acid 1 gram Oral orally 2 times per day Active 1151 Ascorbic Acid Oral orally every day Active 1191 Aspirin 81 milligram Oral orally every day Active 1588 Biotin 1 milligram Oral orally 2 times a day Active 235717 Calcium Carbonate 1250 MG Oral Tablet 600 milligram Oral orally 3 times a day (administer after food or a meal) Active 465261 Calcium Carbonate 1500 MG Oral Tablet 600 milligram Oral orally 3 times a day (administer after food or a meal) Active cinnamon 500 mg Oral orally 2 times a day Active 91277 ferrous sulfate 325 milligram Oral orally every day Active 935860 Furosemide 20 MG Oral Tablet 20 milligram Oral orally every day Active 19991023 letrozole 2.5 MG Oral Tablet 2.5 milligram Oral orally every day Active 513667 Lisinopril 20 MG Oral Tablet 20 milligram Oral orally 2 times per day Active 6470 Lorazepam 0.5 milligram Oral orally every day at bedtime Active 6470 Lorazepam 0.5 milligram Oral orally every day at bedtime Active 6582 Magnesium Oxide 400 milligram Oral orally 2 times per day Active Multivitamins 1 capsule Oral orally every day Active 5661548 [place]-3 Acid Ethyl Esters (JAIL) 1250 MG Oral Capsule 1000 milligram Oral orally 2 times a day (administer with food) Active 05223 Wheat germ oil 1000 unit Oral orally every day Active 114655 Amiodarone hydrochloride 200 MG Oral Tablet 200 milligram Oral orally every day (administer consistently in regards to food/meals) No Longer Active 68126 carvedilol 12.5 milligram Oral orally 2 times per day (administer with food) No Longer Active 630585 Fexofenadine hydrochloride 180 MG Oral Tablet 180 milligram Oral orally prn as needed. allergy symptoms No Longer Active Lactobacillus Bifidus 1 capsule Oral orally every day No Longer Active 19991023 letrozole 2.5 MG Oral Tablet 2.5 milligram Oral orally every day No Longer Active 152869 Potassium Chloride 10 MEQ Extended Release Oral Capsule 10 milliequivalent Oral orally every day No Longer Active Allergies * No Known Allergies Results * No data in the system Vital Signs * No data in the [...]
--- OUTSIDE RECORDS SUMMARY | 2016-09-05 08:14 | XMS REPORT | Continuity of Care Document ---
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 Social History Element Description Code Description Smoking Status Code System Start Date End Date Smoking Status [id number] Unknown if ever smoked SNOMED-CT Problems Code Code System Problem Name Start Date End Date Status 45226231 SNOMED-CT Hypertensive disorder current Active BACK AND NECK PROBLEMS Unknown Active LEG STENT Unknown Active 638142918 SNOMED-CT Infective cystitis Unknown Active 25381666 SNOMED-CT Headache Unknown Active 9547878 SNOMED-CT Arthritis Unknown Active 807285166 SNOMED-CT Seasonal allergy Unknown Active 44723387 SNOMED-CT Hiatal hernia Unknown Active 812928831 SNOMED-CT (Carditis NOS) or (heart disease NOS) HX Active 089629592 SNOMED-CT Acute peptic ulcer NOS HX Active 444126606 SNOMED-CT Malignant tumor of breast HX Active 368097081 SNOMED-CT Allergy to pollen HX Active Medications RxNorm Medication Dose Route Instructions Indications Start Date End Date Status 691846 Acetaminophen 325 MG / Hydrocodone Bitartrate 5 MG Oral Tablet 1 tablet Oral orally every 4 to 6 hours as needed. pain Active 1151 Ascorbic Acid 1 gram Oral orally 2 times per day Active 1151 Ascorbic Acid Oral orally every day Active 1191 Aspirin 81 milligram Oral orally every day Active 1588 Biotin 1 milligram Oral orally 2 times a day Active 111883 Calcium Carbonate 1250 MG Oral Tablet 600 milligram Oral orally 3 times a day (administer after food or a meal) Active 408635 Calcium Carbonate 1500 MG Oral Tablet 600 milligram Oral orally 3 times a day (administer after food or a meal) Active cinnamon 500 mg Oral orally 2 times a day Active 31482 ferrous sulfate 325 milligram Oral orally every day Active 149360 Furosemide 20 MG Oral Tablet 20 milligram Oral orally every day Active 19991023 letrozole 2.5 MG Oral Tablet 2.5 milligram Oral orally every day Active 992825 Lisinopril 20 MG Oral Tablet 20 milligram Oral orally 2 times per day Active 6470 Lorazepam 0.5 milligram Oral orally every day at bedtime Active 6470 Lorazepam 0.5 milligram Oral orally every day at bedtime Active 6582 Magnesium Oxide 400 milligram Oral orally 2 times per day Active Multivitamins 1 capsule Oral orally every day Active 5603716 [place]-3 Acid Ethyl Esters (SNF) 1250 MG Oral Capsule 1000 milligram Oral orally 2 times a day (administer with food) Active 05609 Wheat germ oil 1000 unit Oral orally every day Active 829509 Amiodarone hydrochloride 200 MG Oral Tablet 200 milligram Oral orally every day (administer consistently in regards to food/meals) No Longer Active 96389 carvedilol 12.5 milligram Oral orally 2 times per day (administer with food) No Longer Active 503799 Fexofenadine hydrochloride 180 MG Oral Tablet 180 milligram Oral orally prn as needed. allergy symptoms No Longer Active Lactobacillus Bifidus 1 capsule Oral orally every day No Longer Active 19991023 letrozole 2.5 MG Oral Tablet 2.5 milligram Oral orally every day No Longer Active 007480 Potassium Chloride 10 MEQ Extended Release Oral [...] otherwise negative. No evidence of skeletalmetastases.Released By BRAVO FERNANDEZ, MDDate: 06/14/2016 14:54 Vital Signs * No data in the system Plan of Care * No data in the system Procedures * No data in the system Encounters Date Code Diagnosis Status (ICD10) - D80566 MAL SOHAM UP-OUTER QUAD RT FEM BREAST Active Immunizations Vaccine Code Code System Vaccine Name Date Status 109 CVX pneumococcal vaccine, NOS 01/19/2011 Completed 88 CVX influenza virus vaccine, NOS 01/20/2012 Completed Functional Status * No data in the system Hospital Discharge Instructions * No data in the system
--- OUTSIDE RECORDS SUMMARY | 2016-09-05 08:14 | XMS REPORT | Continuity of Care Document ---
Author Author [facility] Organization [facility] Address [address] [place] [address] ;ext= Care Team Providers Care Hydraulics Teacher Name Role Phone Saulo AYALA Admitting Physician [phone] Saulo AYALA Attending Physician [phone] Hospital Admission Diagnosis * No data in the System Social History Element Description Code Description Smoking Status Code System Start Date End Date Smoking Status 278688274 Current every day smoker SNOMED-CT Problems Code Code System Problem Name Start Date End Date Status 92486375 SNOMED-CT Hypertensive disorder current Active 195915725 SNOMED-CT (Carditis NOS) or (heart disease NOS) HX Active 981347720 SNOMED-CT Acute peptic ulcer NOS HX Active 119058197 SNOMED-CT Malignant tumor of breast HX Active 739211726 SNOMED-CT Allergy to pollen HX Active Medications RxNorm Medication Dose Route Instructions Indications Start Date End Date Status 640529 Amiodarone hydrochloride 200 MG Oral Tablet 200 milligram Oral orally every day (administer consistently in regards to food/meals) Active 1191 Aspirin 81 milligram Oral orally every day Active 57017 carvedilol 12.5 milligram Oral orally 2 times per day (administer with food) Active 753020 Fexofenadine hydrochloride 180 MG Oral Tablet 180 milligram Oral orally prn as needed. allergy symptoms Active 580997 Furosemide 20 MG Oral Tablet 20 milligram Oral orally every day Active Lactobacillus Bifidus 1 capsule Oral orally every day Active 720723 letrozole 2.5 MG Oral Tablet 2.5 milligram Oral orally every day Active 526353 Lisinopril 20 MG Oral Tablet 20 milligram Oral orally every day Active 6582 Magnesium Oxide 241.3 milligram Oral orally every day Active 694957 Potassium Chloride 10 MEQ Extended Release Oral Capsule 10 milliequivalent Oral orally every day Active Allergies * No Known Allergies Results Laboratory Results Order: Basic Metabolic Panel Legend: D=Delta, H=High, L=Low, HH=Critical High, LL=Critical Low, AA=Critical Alpha-Numeric, C=Corrected, A=Abnormal LOINC Test Result Flag Range Units Date 2344-11 1Glucose SerPl-mCnc 123 H 70-105 mg/dl 11/16/2015 11:30 3094-0 1BUN SerPl-mCnc 14 7-25 mg/dl 11/16/2015 11:30 2160-0 1Creat SerPl-mCnc 1.2 0.6-1.3 mg/dl 11/16/2015 11:30 23269-0 1Creat/Urea nit SerPl 12 L 13-39 11/16/2015 11:30 2951-2 1Sodium SerPl-sCnc 142 135-145 mmol/L 11/16/2015 11:30 79468-7 1Potassium SerPl-mCnc 3.6 3.5-5.1 mmol/L 11/16/2015 11:30 2075-0 1Chloride SerPl-sCnc 100 98-107 mmol/l 11/16/2015 11:30 2028-9 1CO2 SerPl-sCnc 30 21-31 mmol/l 11/16/2015 11:30 01077-1 1Anion Gap SerPl-sCnc 16 9-16 mmol/L 11/16/2015 11:30 2692-2 1Osmolality SerPl 296 277-298 mOsm/kg 11/16/2015 11:30 73476-5 1Calcium SerPl-mCnc 9.5 8.2-10.0 mg/dl 11/16/2015 11:30 1GFR 44 L 60-116 GFRunits 11/16/2015 11:30 * Performing Lab Footnotes:* [id number] [address] [place] [address] [place] - JES BEE Order: CBC With Automated Differential Legend: D=Delta, H=High, L=Low, HH=Critical High, LL=Critical Low, AA=Critical Alpha-Numeric, C=Corrected, A=Abnormal LOINC Test Result Flag Range Units Date 6689-06 1WBC # Bld Auto 6.3 4.5-11.0 10^3/mm3 11/16/2015 11:30 15281-4 1Retics # Auto 4.50 4.00-5.20 10^6/mm3 11/16/2015 11:30 33022-0 1Hgb BldV-mCnc 12.9 12.0-16.0 g/dl 11/16/2015 11:30 4544-3 1Hct VFr Bld Auto 40.2 36.0-46.0 % 11/16/2015 11:30 787-2 1MCV RBC Auto 89.3 82.0-100.0 10^6/mm3 11/16/2015 11:30 785-6 1MCH RBC Qn Auto 28.7 27.0-34.0 pg 11/16/2015 11:30 786-4 1MCHC RBC Auto-mCnc 32.1 32.0-36.0 g/dl 11/16/2015 11:30 788-0 1RDW RBC Auto-Rto 13.7 11.7-15.0 % 11/16/2015 11:30 777-3 1Platelet # Bld Auto 269 150-450 10^3/mm3 11/16/2015 11:30 27171-6 1PMV Bld 9.2 7.4-10.4 11/16/2015 11:30 06746-2 1Neutrophils # CSF 66.1 40.0-74.0 % 11/16/2015 11:30 1LYMPH% 23.2 14.0-46.0 % 11/16/2015 11:30 04762-0 1CD43 Ag Tiss Ql ImStn 9.0 4.0-13.0 % 11/16/2015 11:30 711-2 1Eosinophil # Bld Auto 1.4 0.0-4.0 % 11/16/2015 11:30 704-7 1Basophils # Bld Auto 0.3 <=3.0 % 11/16/2015 11:30 751-8 1Neutrophils # Bld Auto 4.2 1.8-7.8 11/16/2015 11:30 40671-8 1Lymphocytes # Bld 1.5 0.7-4.5 11/16/2015 11:30 95848-5 1CD43 Ag Tiss Ql ImStn 0.6 0.1-1.0 11/16/2015 11:30 711-2 1Eosinophil # Bld Auto 0.09 <=4.00 11/16/2015 11:30 704-7 1Basophils # Bld Auto 0.02 <=0.20 11/16/2015 11:30 2MANDIFF N 11/16/2015 11:30 84503-3 2RBC Bld Auto N 11/16/2015 11:30 * Performing Lab Footnotes:* [facility] - [id number] - [address] [place] [address] - JES BEE * [facility] [id number] - [address] [place] [address] - Battery Assembler:, Jes Bee MD - JES BEE Vital Signs * No data in the [...]
--- OUTSIDE RECORDS SUMMARY | 2016-09-05 08:14 | XMS REPORT | Continuity of Care Document ---
Author Author [facility] Organization [facility] Address [address] [place] [address] ;ext= Care Team Providers Care Wood Type Finisher Name Role Phone Romain BARROSO Admitting Physician [phone] Romain BARROSO Attending Physician [phone] Juanito GARZON CP [phone] Hospital Admission Diagnosis * No data in the System Social History Element Description Code Description Smoking Status Code System Start Date End Date Smoking Status [id number] Never smoker SNOMED-CT Problems Code Code System Problem Name Start Date End Date Status 32506794 SNOMED-CT Hypertensive disorder current Active BACK AND NECK PROBLEMS Unknown Active LEG STENT Unknown Active 171724251 SNOMED-CT Infective cystitis Unknown Active 25349156 SNOMED-CT Headache Unknown Active 9828582 SNOMED-CT Arthritis Unknown Active 836387548 SNOMED-CT Seasonal allergy Unknown Active 23729138 SNOMED-CT Hiatal hernia Unknown Active 501947603 SNOMED-CT (Carditis NOS) or (heart disease NOS) HX Active 851694430 SNOMED-CT Acute peptic ulcer NOS HX Active 990251613 SNOMED-CT Malignant tumor of breast HX Active 902054959 SNOMED-CT Allergy to pollen HX Active Medications RxNorm Medication Dose Route Instructions Indications Start Date End Date Status 611990 Acetaminophen 325 MG / Hydrocodone Bitartrate 5 MG Oral Tablet 1 tablet Oral orally every 4 to 6 hours as needed. pain Active 1151 Ascorbic Acid 1 gram Oral orally 2 times per day Active 1151 Ascorbic Acid Oral orally every day Active 1191 Aspirin 81 milligram Oral orally every day Active 1588 Biotin 1 milligram Oral orally 2 times a day Active 662111 Calcium Carbonate 1250 MG Oral Tablet 600 milligram Oral orally 3 times a day (administer after food or a meal) Active 858345 Calcium Carbonate 1500 MG Oral Tablet 600 milligram Oral orally 3 times a day (administer after food or a meal) Active cinnamon 500 mg Oral orally 2 times a day Active 20657 ferrous sulfate 325 milligram Oral orally every day Active 512533 Furosemide 20 MG Oral Tablet 20 milligram Oral orally every day Active 19991023 letrozole 2.5 MG Oral Tablet 2.5 milligram Oral orally every day Active 119754 Lisinopril 20 MG Oral Tablet 20 milligram Oral orally 2 times per day Active 6470 Lorazepam 0.5 milligram Oral orally every day at bedtime Active 6470 Lorazepam 0.5 milligram Oral orally every day at bedtime Active 6582 Magnesium Oxide 400 milligram Oral orally 2 times per day Active Multivitamins 1 capsule Oral orally every day Active 4634100 [place]-3 Acid Ethyl Esters (LONGTERM) 1250 MG Oral Capsule 1000 milligram Oral orally 2 times a day (administer with food) Active 91338 Wheat germ oil 1000 unit Oral orally every day Active 272569 Amiodarone hydrochloride 200 MG Oral Tablet 200 milligram Oral orally every day (administer consistently in regards to food/meals) No Longer Active 35733 carvedilol 12.5 milligram Oral orally 2 times per day (administer with food) No Longer Active 407463 Fexofenadine hydrochloride 180 MG Oral Tablet 180 milligram Oral orally prn as needed. allergy symptoms No Longer Active Lactobacillus Bifidus 1 capsule Oral orally every day No Longer Active 19991023 letrozole 2.5 MG Oral Tablet 2.5 milligram Oral orally every day No Longer Active 389063 Potassium Chloride 10 MEQ Extended Release Oral [...]
--- OUTSIDE RECORDS SUMMARY | 2016-09-05 08:14 | XMS REPORT | Continuity of Care Document ---
Author Author [facility] Organization [facility] Address [address] [place] [address] ;ext= Care Team Providers Care Dado Operator Name Role Phone Saulo AYALA Admitting Physician [phone] Saulo AYALA Attending Physician [phone] Hospital Admission Diagnosis * No data in the System Social History Element Description Code Description Smoking Status Code System Start Date End Date Smoking Status 2056166 Former smoker SNOMED-CT 2010 Problems Code Code System Problem Name Start Date End Date Status 98450299 SNOMED-CT Hypertensive disorder current Active BACK AND NECK PROBLEMS Unknown Active LEG STENT Unknown Active 705118745 SNOMED-CT Infective cystitis Unknown Active 38153684 SNOMED-CT Headache Unknown Active 4542788 SNOMED-CT Arthritis Unknown Active 024729820 SNOMED-CT Seasonal allergy Unknown Active 77876852 SNOMED-CT Hiatal hernia Unknown Active 694788231 SNOMED-CT (Carditis NOS) or (heart disease NOS) HX Active 446108974 SNOMED-CT Acute peptic ulcer NOS HX Active 951551563 SNOMED-CT Malignant tumor of breast HX Active 755381107 SNOMED-CT Allergy to pollen HX Active Medications RxNorm Medication Dose Route Instructions Indications Start Date End Date Status 380442 Acetaminophen 325 MG / Hydrocodone Bitartrate 5 MG Oral Tablet 1 tablet Oral orally every 4 to 6 hours as needed. pain Active 1151 Ascorbic Acid 1 gram Oral orally 2 times per day Active 1151 Ascorbic Acid Oral orally every day Active 1191 Aspirin 81 milligram Oral orally every day Active 1588 Biotin 1 milligram Oral orally 2 times a day Active 992179 Calcium Carbonate 1250 MG Oral Tablet 600 milligram Oral orally 3 times a day (administer after food or a meal) Active 632029 Calcium Carbonate 1500 MG Oral Tablet 600 milligram Oral orally 3 times a day (administer after food or a meal) Active cinnamon 500 mg Oral orally 2 times a day Active 96135 ferrous sulfate 325 milligram Oral orally every day Active 357924 Furosemide 20 MG Oral Tablet 20 milligram Oral orally every day Active 19991023 letrozole 2.5 MG Oral Tablet 2.5 milligram Oral orally every day Active 551435 Lisinopril 20 MG Oral Tablet 20 milligram Oral orally 2 times per day Active 6470 Lorazepam 0.5 milligram Oral orally every day at bedtime Active 6470 Lorazepam 0.5 milligram Oral orally every day at bedtime Active 6582 Magnesium Oxide 400 milligram Oral orally 2 times per day Active Multivitamins 1 capsule Oral orally every day Active 6400245 [place]-3 Acid Ethyl Esters (SNF) 1250 MG Oral Capsule 1000 milligram Oral orally 2 times a day (administer with food) Active 71152 Wheat germ oil 1000 unit Oral orally every day Active 615879 Amiodarone hydrochloride 200 MG Oral Tablet 200 milligram Oral orally every day (administer consistently in regards to food/meals) No Longer Active 57857 carvedilol 12.5 milligram Oral orally 2 times per day (administer with food) No Longer Active 816136 Fexofenadine hydrochloride 180 MG Oral Tablet 180 milligram Oral orally prn as needed. allergy symptoms No Longer Active Lactobacillus Bifidus 1 capsule Oral orally every day No Longer Active 19991023 letrozole 2.5 MG Oral Tablet 2.5 milligram Oral orally every day No Longer Active 772018 Potassium Chloride 10 MEQ Extended Release Oral [...] 120 lbs 11/25/2015 BSA (Body Surface Area) 1.35840 11/25/2015 BMI (Body Mass Index) 20.7 11/25/2015 [...] physician. * MEDICATION(S) ORDERED BY YOUR SURGEON:* [place] 5/325mg 2 tablets given at 4:00 PM. [...] incision, or other concerns, * ~ Call [facility] at [phone], any time 24 hr a day. * Dr. Ayala [phone] * YOUR NEXT APPOINTMENT IS:* Physical [facility]ar[facility] starting tomorrow (11/26/15) at 11 :15 at [facility].Follow-up with 12/06/15 @ 3:00 PM in his [place] office.
--- OUTSIDE RECORDS SUMMARY | 2016-09-05 08:14 | XMS REPORT | Continuity of Care Document ---
Author Author [facility] Organization [facility] Address Unknown Phone Unavailable Allergies Active Description Code Type Severity Reaction Onset Reported/Identified Relationship to Patient Clinical Status Yes No Known Drug Allergies 736257 Unknown N/A 12/18/2012 Medications Problems Date Dx Coded Attending Type Code Diagnosis Diagnosed By 01/04/2015 ZELALEM MON 174.9 MALIGNANT NEOPLASM OF BREAST (FEMALE), UNSPECIFIED 02/25/2015 MARY KATE WYATT P 433.10 OCCLUSION AND STENOSIS OF CAROTID ARTERY WITHOUT MENTION OF CEREBRAL INFARCTION 02/25/2015 MARY KATE WYATT S 433.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 02/25/2015 MARY KATE WYATT P I65.23 OCCLUSION AND STENOSIS OF BILATERAL CAROTID ARTERIES 08/11/2015 MIGUEL ANGEL TORRES S M25.422 EFFUSION, LEFT ELBOW 08/11/2015 MIGUEL ANGEL TORRES P M25.522 PAIN IN LEFT ELBOW 08/11/2015 MIGUEL ANGEL TORERS S M79.632 PAIN IN LEFT FOREARM 09/20/2015 MIGUEL ANGEL TORRES P M25.562 PAIN IN LEFT KNEE 09/20/2015 MIGUEL ANGEL TORRES S M79.605 PAIN IN LEFT LEG 10/19/2015 WENDY DUARTE M23.332 OTHER MENISCUS DERANGEMENTS, OTHER MEDIAL MENISCUS, LEFT KNEE 11/29/2015 MARIA D AYALA S V72.63 PRE-PROCEDURAL LABORATORY EXAMINATION 11/29/2015 MARIA D AYALA V72.81 PRE-OPERATIVE CARDIOVASCULAR EXAMINATION 11/29/2015 MARIA D AYALA Z01.810 ENCOUNTER FOR PREPROCEDURAL CARDIOVASCULAR EXAMINATION 11/29/2015 MARIA D AYALA S Z01.812 ENCOUNTER FOR PREPROCEDURAL LABORATORY EXAMINATION 12/14/2015 WENDY DUARTE M96.830 POSTPROCEDURAL HEMORRHAGE AND HEMATOMA OF A MUSCULOSKELETAL STRUCTURE FOLLOWING A MUSCULOSKELETAL SYSTEM PROCEDURE 12/15/2015 LUCY, AMRIA D K S I10 ESSENTIAL (PRIMARY) HYPERTENSION 12/15/2015 MARIA D AYALA P M23.332 OTHER MENISCUS DERANGEMENTS, OTHER MEDIAL MENISCUS, LEFT KNEE 12/15/2015 MARIA D AYALA P V10.3 PERSONAL HISTORY OF MALIGNANT NEOPLASM OF BREAST 12/15/2015 MARIA D AYALA S Z85.3 PERSONAL HISTORY OF MALIGNANT NEOPLASM OF BREAST 01/21/2016 WENDY DUARTE P M17.12 UNILATERAL PRIMARY OSTEOARTHRITIS, LEFT KNEE 02/07/2016 FLEZOE T CAR T~NS602 P M17.12 UNILATERAL PRIMARY OSTEOARTHRITIS, LEFT KNEE 02/07/2016 FLESKE T CAR T~NS602 S M23.332 OTHER MENISCUS DERANGEMENTS, OTHER MEDIAL MENISCUS, LEFT KNEE 02/07/2016 FLESKE T CAR T~NS602 S M23.362 OTHER MENISCUS DERANGEMENTS, OTHER LATERAL MENISCUS, LEFT KNEE 06/21/2016 FLESKE T CRA T~NS602 S C50.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 06/21/2016 ARAMISE Romain CAR T~NS602 P C50.411 MALIGNANT NEOPLASM OF UPPER-OUTER QUADRANT OF RIGHT FEMALE BREAST 06/21/2016 [place] T CAR T~NS602 S M17.12 UNILATERAL PRIMARY OSTEOARTHRITIS, LEFT KNEE 06/21/2016 [place] T CAR T~NS602 S M23.332 OTHER MENISCUS DERANGEMENTS, OTHER MEDIAL MENISCUS, LEFT KNEE 06/21/2016 FLESKE Romain CAR T~NS602 S R97.8 OTHER ABNORMAL TUMOR MARKERS 06/23/2016 ARAMISE Romain CAR T~NS602 S M17.12 UNILATERAL PRIMARY OSTEOARTHRITIS, LEFT KNEE 06/23/2016 [place] T CAR T~NS602 P M23.332 OTHER MENISCUS DERANGEMENTS, OTHER MEDIAL MENISCUS, LEFT KNEE 06/23/2016 [place] T CAR T~NS602 S Z98.890 OTHER SPECIFIED POSTPROCEDURAL STATES Procedures Code Description Performed By Performed On 80.6 EXCISION OF SEMILUNAR CARTILAGE OF KNEE 11/25/2015 Results Encounters ACCT No. Visit Date/Time Discharge Status Pt. Type Provider Facility Loc./Unit Complaint [id number] 08/19/2014 10:58:00 2014 23:59:00 DIS Outpatient Cachorro LEVIN, [facility].RESP [id number] 05/07/2012 11:15:00 2011 23:59:59 CLS Outpatient Rupal LEVIN, [facility] [place].GBRH
--- OUTSIDE RECORDS SUMMARY | 2016-09-05 08:14 | XMS REPORT | Continuity of Care Document ---
Author Author [facility] Organization [facility] Address [address] [place] [address] ;ext= Care Team Providers Care Bulb Grower Name Role Phone Manjula TORRES Admitting Physician [phone] Manjula TORRES Attending Physician [phone] Hospital Admission Diagnosis * No data in the System Social History Element Description Code Description Smoking Status Code System Start Date End Date Smoking Status 64408547 Smoker, current status unknown SNOMED-CT Problems Code Code System Problem Name Start Date End Date Status 73084346 SNOMED-CT Hypertensive disorder current Active 450551669 SNOMED-CT (Carditis NOS) or (heart disease NOS) HX Active 145617859 SNOMED-CT Acute peptic ulcer NOS HX Active 740345560 SNOMED-CT Malignant tumor of breast HX Active 586537584 SNOMED-CT Allergy to pollen HX Active Medications RxNorm Medication Dose Route Instructions Indications Start Date End Date Status 227664 Amiodarone hydrochloride 200 MG Oral Tablet 200 milligram Oral orally every day (administer consistently in regards to food/meals) Active 1191 Aspirin 81 milligram Oral orally every day Active 13488 carvedilol 12.5 milligram Oral orally 2 times per day (administer with food) Active 250376 Fexofenadine hydrochloride 180 MG Oral Tablet 180 milligram Oral orally prn as needed. allergy symptoms Active 170361 Furosemide 20 MG Oral Tablet 20 milligram Oral orally every day Active Lactobacillus Bifidus 1 capsule Oral orally every day Active 957887 letrozole 2.5 MG Oral Tablet 2.5 milligram Oral orally every day Active 002729 Lisinopril 20 MG Oral Tablet 20 milligram Oral orally every day Active 6582 Magnesium Oxide 241.3 milligram Oral orally every day Active 696584 Potassium Chloride 10 MEQ Extended Release Oral Capsule 10 milliequivalent Oral orally every day Active Allergies * No Known Allergies Results Radiology Results Order: [id number] Tibia/fibula LT 2 views* Exam Completion Date:09/07/2015 14:56 INDICATION: pain lt knee LEFT TIBIA-FIBULA 2-VIEWS (AP & LAT): COMPARISON: NoneFINDINGS: There is no evidence of fracture, dislocation, or joint narrowing.IMPRESSION: Negative x-raysReleased By DESTINEE LESLIEate: 15:54 Order: [id number] Knee LT 3 views* Exam Completion Date:09/07/2015 [...]
--- OUTSIDE RECORDS SUMMARY | 2016-09-05 08:14 | XMS REPORT | Continuity of Care Document ---
Author Author [facility] Organization [facility] Address [address] [place] [address] ;ext= Care Team Providers Care Open Hearth Furnace Operator Helper Name Role Phone Carlos Manuel DUARTE Admitting Physician [phone] Carlos Manuel DUARTE Attending Physician [phone] Hospital Admission Diagnosis * No data in the System Social History Element Description Code Description Smoking Status Code System Start Date End Date Smoking Status 842642237 Never smoker SNOMED-CT Problems Code Code System Problem Name Start Date End Date Status 22556793 SNOMED-CT Hypertensive disorder current Active BACK AND NECK PROBLEMS Unknown Active LEG STENT Unknown Active 537970965 SNOMED-CT Infective cystitis Unknown Active 17720572 SNOMED-CT Headache Unknown Active 5415492 SNOMED-CT Arthritis Unknown Active 788605114 SNOMED-CT Seasonal allergy Unknown Active 77600590 SNOMED-CT Hiatal hernia Unknown Active 344357891 SNOMED-CT (Carditis NOS) or (heart disease NOS) HX Active 215402951 SNOMED-CT Acute peptic ulcer NOS HX Active 150082136 SNOMED-CT Malignant tumor of breast HX Active 089423149 SNOMED-CT Allergy to pollen HX Active Medications RxNorm Medication Dose Route Instructions Indications Start Date End Date Status 564683 Acetaminophen 325 MG / Hydrocodone Bitartrate 5 MG Oral Tablet 1 tablet Oral orally every 4 to 6 hours as needed. pain Active 1151 Ascorbic Acid 1 gram Oral orally 2 times per day Active 1151 Ascorbic Acid Oral orally every day Active 1191 Aspirin 81 milligram Oral orally every day Active 1588 Biotin 1 milligram Oral orally 2 times a day Active 266991 Calcium Carbonate 1250 MG Oral Tablet 600 milligram Oral orally 3 times a day (administer after food or a meal) Active 191370 Calcium Carbonate 1500 MG Oral Tablet 600 milligram Oral orally 3 times a day (administer after food or a meal) Active cinnamon 500 mg Oral orally 2 times a day Active 71405 ferrous sulfate 325 milligram Oral orally every day Active 060833 Furosemide 20 MG Oral Tablet 20 milligram Oral orally every day Active 19991023 letrozole 2.5 MG Oral Tablet 2.5 milligram Oral orally every day Active 258324 Lisinopril 20 MG Oral Tablet 20 milligram Oral orally 2 times per day Active 6470 Lorazepam 0.5 milligram Oral orally every day at bedtime Active 6470 Lorazepam 0.5 milligram Oral orally every day at bedtime Active 6582 Magnesium Oxide 400 milligram Oral orally 2 times per day Active Multivitamins 1 capsule Oral orally every day Active 6641599 [place]-3 Acid Ethyl Esters (SENIOR CARE) 1250 MG Oral Capsule 1000 milligram Oral orally 2 times a day (administer with food) Active 50608 Wheat germ oil 1000 unit Oral orally every day Active 778992 Amiodarone hydrochloride 200 MG Oral Tablet 200 milligram Oral orally every day (administer consistently in regards to food/meals) No Longer Active 17629 carvedilol 12.5 milligram Oral orally 2 times per day (administer with food) No Longer Active 675439 Fexofenadine hydrochloride 180 MG Oral Tablet 180 milligram Oral orally prn as needed. allergy symptoms No Longer Active Lactobacillus Bifidus 1 capsule Oral orally every day No Longer Active 19991023 letrozole 2.5 MG Oral Tablet 2.5 milligram Oral orally every day No Longer Active 079218 Potassium Chloride 10 MEQ Extended Release Oral Capsule 10 milliequivalent Oral orally every day No Longer Active Allergies * No Known Allergies Results Radiology Results Order: [id number] NM Bone And/Or Join Limited Area* Exam Completion Date:2015 14:00 INDICATION: M17.12 Unilateral primary osteoarthritis, left kneeNM Bone And/Or Join Limited Area:Bone scan was performed of the knees following injection of 26.1 [id number] MDP.Findings: There is asymmetric increased activity within [...]
[2016-09-05 08:35] LABS: BASOPHILS % (AUTO) 0.6 % (0-2); EOSINOPHILS # (AUTO) 0.1 T/MM3 (0-0.5); EOSINOPHILS % (AUTO) 2.1 % (0-4); HGB - HEMOGLOBIN 15.5 GM/DL (12-16); IMMATURE GRANULOCYTE # (AUTO) 0.01 T/MM3 (0.00-0.03); IMMATURE GRANULOCYTE % (AUTO) 0.1 % (0.0-0.5); LYMPHOCYTES # (AUTO) 1.7 T/MM3 (1-4.8); MEAN PLATELET VOLUME 9.5 UM3 (9.4-12.4); MONOCYTES # (AUTO) 0.5 T/MM3 (0-0.8); MONOCYTES % (AUTO) 7.6 % (0-9.0); NEUTROPHILS #(AUTO)-ABSOLUTE 4.3 T/MM3 (1.8-7.7); NEUTROPHILS % (AUTO) 64.6 % (33-66); WBC - WHITE BLOOD COUNT 6.7 T/MM3 (4.5-11.0)
[2016-09-05 08:50] LABS: ALBUMIN 4.2 G/DL (3.5-5.0); ALKALINE PHOSPHATASE 73 U/L (38-126); ALT (SGPT) 21 U/L (9-52); ANION GAP 13 MEQ/L (5-15); AST (SGOT) 18 U/L (14-36); BUN/CREATININE RATIO 12 RATIO (6-26); CALCIUM 10.1 MG/DL (8.4-10.2); CHLORIDE 108 MEQ/L (98-107); CO2 - CARBON DIOXIDE 30 MEQ/L (22-30); CREATININE 1.1 MG/DL (0.7-1.2); GLOMERULAR FILTRATION RATE 48; GLUCOSE 103 MG/DL (65-110); POTASSIUM 4.1 MEQ/L (3.6-5); SODIUM 151 MEQ/L (134-144)
[2016-09-05 08:51] LABS: ALBUMIN/GLOBULIN RATIO 1.6 RATIO (1.1-2.2); TOTAL PROTEIN 6.8 G/DL (6.3-8.2)
[2016-09-05] MEDS ORDERED: VANCOMYCIN 1 GRAM INJECTION ONE (10:06)
--- NOTE | 2016-09-05 10:17 | ANESPREOP ---
Anesthesia Record Date and Time DATE: 09/05/16 TIME: 10:15 Pre-Op Diagnosis left knee osteoarthritis Proposed Surgical Procedure LT TKA NPO since: 2199 Allergies: Coded Allergies: No Known Allergies (Unverified , 09/05/16) Ht/Wt/BMI Height: 5 ' 4.00 " Weight: 54.900 kg BMI: 20.8 kg/m2 Vital Signs Date Time Temp Pulse Resp B/P Pulse Ox O2 Delivery O2 Flow Rate FiO2 09/05/16 08:34 97.7 89 14 172/79 94 Room Air Medications Inpatient Medications Current Medications Medications (Trade) Dose Ordered Sig/Yoly Start Time Stop Time Status Last Admin Dose Admin Sodium Chloride (Normal Saline IV) 1,000 ml @ 50 mls/hr Q20H 09/05/16 07:00 09/05/16 09:15 50 MLS/HR Ascorbic Acid (Vitamin C) 1,000 Mg Tablet, 1 TAB PO DAILY, (Reported) Last Taken: on Unknown Date & Time Biotin (Biotin) 5,000 Mcg Tab.rapdis, 1 TAB PO DAILY, (Reported) Last Taken: on Unknown Date & Time Calcium Carbonate/Vitamin D3 (Caltrate 600 + D Tablet) 1 Each Tablet, 2 TAB PO BID, (Reported) Last Taken: on Unknown Date & Time Cinnamon Bark (Cinnamon) 500 Mg Capsule , 1 CAP PO DAILY, (Reported) Last Taken: on Unknown Date & Time Cranberry Extract (Cranberry) 500 Mg Capsule, 1 CAP PO DAILY, (Reported) Last Taken: on Unknown Date & Time Furosemide (Furosemide) 20 Mg Tablet, 1 TAB PO DAILY, (Reported) Last Taken: on 09/04/16 1000 Letrozole (Femara) 2.5 Mg Tablet, 1 TAB PO DAILY, (Reported) TAKES AT 1000AM DAILY Last Taken: on 09/04/16 1000 Lisinopril (Lisinopril) 20 Mg Tablet, 20 MG PO AM&1330, (Reported) TAKES EVERY MORNING AND AT 1330 Last Taken: on 09/04/16 1300 Lorazepam (Lorazepam) 0.5 Mg Tablet, 0.5 MG PO HS PRN for SLEEP, (Reported) Last Taken: on 09/03/16 Multivits,Ca,Minerals/Iron/FA (Women's Daily Caplet ) 1 Each Tablet, 1 TAB PO DAILY, (Reported) Last Taken: on Unknown Date & Time Vitamin E Acetate (Vitamin E) 1,000 Unit Capsule, 1 CAP PO DAILY, (Reported) Last Taken: on Unknown Date & Time Currently on Beta Corky: No Medical/Surgical History Anesthesia PMH: Reports: *Hypertension, Arthritis, CHF (PER H&P-RESOLVED), COPD (PER H&P), Cancer (RT BREAST-CHEMO/RADIATION-2009, CURRENT PO CHEMO PILL), Cardiac Arrythmia (hx afib), Renal Disease (CKD PER H&P), Denies: *Diabetes, Anesthesia Reactions (NO KNOWN AIRWAY ISSUES), Blood Transfusion Reac, Glaucoma , Malignant Hyperthermia, Sleep Apnea, Thyroid Disease Smoking Status: Former smoker Has pt. smoked today?: No # of Packs per Day: 1 # of Years: 40 Use Chewing Tobacco?: No Second Hand Exposure: No Substance Use Type: does not use Alcohol Intake: none HX of Last Menstrual Period: POST MENOPAUSAL Past Surgical History Orthopedic Surgeries: Yes - RT DANIELLE; LT KNEE ARTHROSCOPY Abdominal Surgeries: Genitourinary Surgeries: Cardiac Surgeries: Yes - 'ONEIL' STENT PER H&P Endocrine Surgeries: Reproductive Surgeries: Yes - RT BREAST LUMPECTOMY, LYMPH NODE BIOPSY Neurological Surgeries: Ear Surgeries: Nose Surgeries: Throat Surgeries: Yes - TONSILLECTOMY Other Surgeries: Yes - INSERT PORT A CATH (NO LONGER IN PLACE) Anesthesia Adverse Reactions: FOUND none Family Hx of Anesthesia Advers: none Pertinent Findings Laboratory Tests 09/05/16 08:30 EKG Rhythm: Sinus Rhythm Physical Exam Respiratory: Lungs clear Cardiovascular: FOUND Regular rate, rhythm, FOUND Systolic murmur Airway Assessment Mallampati Score: I TMD: 3 Fingerbreadths Neck Extension: Good Teeth: Chipped Teeth/Crowns Overall Assessment: No Airway Concerns ASA: 3 Plan Regional: Spinal Discussion Discussed risks/options/alternatives of anesthesia and questions answered. Patient consents. Nursing pain assessment noted. Present: Family Member Attestation Statement Prior to the delivery of any anesthetic medication, I examined the patient, developed the plan, obtained the patient's consent and discussed the risk and benefits of the procedure with the patient/guardian. JASE DE LEÓN CRNA Sep 05, 2016 10:17
[2016-09-05] MEDS ORDERED: LR 1,000 ML IV PRN (10:22)
[2016-09-05] MEDS ORDERED: PROPOFOL 500mg 50 ML IV ONE (10:24)
[2016-09-05] MEDS ORDERED: ROPIVACAINE 0.5% (5mg/ml) 30ml INJ ONE (11:02)
[2016-09-05] MEDS ORDERED: EPHEDRINE SULFATE 50mg/ml INJECTION ONE (11:13)
[2016-09-05] MEDS ORDERED: CEFAZOLIN 2 GM VIAL IV ONE (11:45)
--- NOTE | 2016-09-05 11:52 | PDOPERATE ---
Operative Report Date of Operation 09/05/16 Side: Left Preoperative Diagnosis: knee primary DJD Postoperative Diagnosis Same as preoperative diagnosis. Operation/Procedure: total knee arthroplasty (left) Surgeon Maria E Almonte MD Reed Or Wind Instrument Repairer SERENA Oropeza Complications None. Regional Block: Spinal Estimated Blood Loss See Anesthesia Record. Fluids Please See Anesthesia Record. Description of Operation Ms. Neely and her left knee were identified and marked in the the preoperative holding area. She was then brought back to the operating suite and proper anesthesia was administered. She was then positioned supine on the operating table. The left lower extremity was then prepped and draped in my normal sterile fashion. Timeout was performed with all operating room personnel. The leg was exsanguinated and tourniquet inflated 250 mmHg. A standard anterior incision followed by a medial parapatellar approach was utilized. The majority of her arthritic changes were in the lateral compartment. There was significant fraying of the lateral tibial plateau. A distal femoral cut was made in 5 of valgus using intramedullary guide. 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 The femur was sized at a 3 and rotation set using the epicondylar axis. Distal femoral cuts were performed. A proximal tibial cut was made using extramedullary guide. Remaining osteophytes and meniscus were removed. Gaps were checked and they were well balanced and rectangular. Trial components were placed with a 9 mm spacer. This allowed for full range of motion and the patella tracked well. The knee was stable throughout range of motion. The patella was resurfaced with the knee in extension to a size 29. The tibia rotation was then marked and the tibia stamped at the proper rotation at a size 2. The bone was prepared for cementing and all components cemented into place and allowed to cure in extension. Betadine solution was used for 3 minutes during the curing period and then fully irrigated out with 1 L of normal saline. The tourniquet was deflated and hemostasis obtained with electrocautery. 1 g of TXA was placed into the wound allowed to sit for 5 minutes. After the cement had cured the knee was taken through range of motion check for balance and stability which were good. Vancomycin powder was placed into the wound. The arthrotomy was closed with #1 Vicryl. The remainder of the wound was then closed by my safety assistant utilizing 2- 0 vycral in the subcutaneous tissue. 4-0 monocryl was used in the subcuticular layer followed by dermabond and a sterile dressing. After closure the patient will be transferred to the recovery room under the care of anesthesia. DONTAE ALMONTE MD Sep 05, 2016 11:52
[2016-09-05] MEDS ORDERED: SENNOSIDES 8.6 MG TABLET PO PRN (12:15)
[2016-09-05] MEDS ORDERED: PRN ORDERS MC (12:15)
[2016-09-05] MEDS ORDERED: ONDANSETRON 4mg/2ml INJECTION IV PRN (12:15)
[2016-09-05] MEDS ORDERED: LORAZEPAM 0.5 MG TABLET PO PRN (12:15)
[2016-09-05] MEDS ORDERED: DiphenhydrAMINE 25 MG CAPSULE PO PRN (12:15)
[2016-09-05] MEDS ORDERED: LORAZEPAM 1 MG TABLET PO PRN (12:15)
[2016-09-05] MEDS ORDERED: DiphenhydrAMINE 50 MG/ML INJECTION IV PRN (12:15)
[2016-09-05] MEDS ORDERED: METOCLOPRAMIDE 10mg/2ml INJECTION IV PRN (12:15)
[2016-09-05] MEDS ORDERED: NOZIN NASAL SWAB NS ONE (12:15)
--- NOTE | 2016-09-05 12:37 | ANESPD ---
Peripheral Nerve Blockade Physician: Grayd Almonte MD Date: 09/05/16 Surgical Procedure: left TKA Discussion Discussed risks/options/alternatives of anesthesia and questions answered. Patient consents. Nursing pain assessment noted. Block Start: 12:30 Block Stop: 12:35 Block Employed: Adductor Canal Indication: post-operative pain Approach: left side confirmed Position: supine Patient: Consent, risks/benefits discussed, Informed, post block act. discussed Monitors: EKG, SpO2, NIBP IV Sedation: No Initial Vital Signs First Documented Vital Signs Date Time Temp Pulse Resp B/P Pulse Ox O2 Delivery O2 Flow Rate FiO2 09/05/16 08:34 97.7 89 14 172/79 94 Room Air Post Vital Signs Vital Signs Date Time Temp Pulse Resp B/P Pulse Ox O2 Delivery O2 Flow Rate FiO2 09/05/16 08:34 97.7 89 14 172/79 94 Room Air Initial Pain Score: 0 Post Block Score: 0 Prep: chlorhexadine/ETOH Ultrasound Used?: Yes Injectate Ropivacaine (%): 0.5 Ropivacaine (mL): 15 Was Epi 1:200,000 Used?: No Injection Injection made incrementally with constant monitoring and aspiration every [5] ml. JASE DE LEÓN I SHOE LASTER Sep 05, 2016 12:37
[2016-09-05] MEDS ORDERED: EPINEPHRINE 0.25 MG, BUPIVACAINE 0.25% 75 MG, MORPHINE SULFATE 15 MG in NORMAL SALINE 3... INJ ONE (12:45)
[2016-09-05] MEDS ORDERED: TRANEXAMIC ACID 1000 MG/10 ML TOP ONE (12:45)
--- NOTE | 2016-09-05 13:05 | NUR ---
ARRIVED TO THE FLOOR PT ARRIVED TO THE FLOOR AT THIS TIME, PT TRANSFERRED FROM THE CART TO THE BED WITH 2 PERSON ASSIST AND SLIDING BOARD. PT ALERT AND ORIENTED X3. VITAL SIGNS STABLE, ON RA AT THIS TIME. PT RESTING IN BED, DENIES PAIN. WILL CONTINUE TO MONITOR.
--- NOTE | 2016-09-05 13:17 | DI ---
Indication: ITS.REASON: POSTOP left knee replacement PROCEDURE: KNEE LEFT 2 VIEW: Encounter: Initial Comparison: None Findings: Postoperative changes of left total knee replacement are seen. There is expected postoperative subcutaneous gas. No evidence of hardware failure or acute fracture. No retained radiopaque surgical instruments or sponges. Overlying material causing artifact. Impression: New left total knee prosthesis without evidence of immediate complication. .
[2016-09-05] MEDS: NORMAL SALINE 1,000 ML IV SCH (13:23)
--- NOTE | 2016-09-05 13:30 | ANESPO ---
Post-Op Note Date 09/05/16 Time: 13:30 Status Pt Participated in Evaluation: Pt participated in person Vital Signs Date Time Temp Pulse Resp B/P Pulse Ox O2 Delivery O2 Flow Rate FiO2 09/05/16 12:55 97.3 09/05/16 12:55 83 16 142/63 96 Room Air Respiratory Function: Airway patent, Regular respirations Cardiovascular Function: Regular pulse Mental Status: Alert/oriented Pain Level Intensity: 0 Hydration: Taking po fluids Complications during Recovery None apparent Follow-Up Instructions Instructions Per Surgeon JASE DE LEÓN I RAILROAD DESIGN CONSULTANT Sep 05, 2016 13:30
--- NOTE | 2016-09-05 13:34 | NUR ---
COUMADIN CONSULT (Initial): Dx: POST ORTHOPEDIC SURGERY Baseline INR = NO HISTORY OF WARFARIN, INR STARTING TOMORROW Will give Warfarin 4 mg today. GOAL INR = 1.5-2.5 Will continue to monitor and make adjustments accordingly. Thank you.
[2016-09-05] MEDS ORDERED: WARFARIN 4 MG TABLET PO ONE (15:00)
[2016-09-05] MEDS: ACETAMINOPHEN 325 MG TABLET PO SCH ×3 (15:22→22:53)
[2016-09-05] MEDS: OXYCODONE I.R. 5 MG TABLET PO PRN ×2 (15:22→18:42)
[2016-09-05] MEDS: NOZIN NASAL SWAB NS SCH ×2 (15:56→23:08)
[2016-09-05] MEDS ORDERED: LETROZOLE 2.5 MG TABLET PO ONE (18:00)
--- NOTE | 2016-09-05 18:02 | NUR ---
PROGRESS NOTE PT IS ALERT AND ORIENTED X3. VITAL SIGNS STABLE, ON RA. THE PT IS REPORTING 4/10 PAIN IN THE LEFT KNEE AT THIS TIME, PRN ROXICODONE 10MG ADMINISTERED AT 1522, WILL CONTINUE TO MONITOR PAIN LEVEL. THE PT HAS VOIDED SINCE ARRIVING TO THE FLOOR BUT HAS POOR APPETITE. PT IS CURRENTLY RESTING IN BED VISITING WITH HER SISTER. THE PT HAS THE BED ALARM ACTIVATED, CALL LIGHT WITHIN REACH, NO OTHER CONCERNS NOTED AT THIS TIME, WILL CONTINUE TO MONITOR.
[2016-09-05] MEDS: CEFAZOLIN 2 G in NORMAL SALINE 100 ML IV SCH (18:48)
[2016-09-05] MEDS ORDERED: ENOXAPARIN 40 MG/0.4 ML INJECTION SQ SCH (21:00)
[2016-09-05] MEDS ORDERED: SENNOSIDES 8.6 MG TABLET PO SCH (22:00)
[2016-09-05] MEDS: LISINOPRIL 20 MG TABLET PO SCH (22:55)
[2016-09-05] MEDS: CALCIUM 600mg + VIT D 400 TABLET PO SCH (23:25)
[2016-09-06] VITALS (8 sets, daily range): BP systolic 132–163; BP diastolic 54–73; PULSE 80–88; RESP 16–18; TEMP 97.6–98.2; O2SAT 94–100
[2016-09-06] MEDS: NORMAL SALINE 1,000 ML IV SCH ×2 (00:46→02:40)
--- NOTE | 2016-09-06 02:32 | NUR ---
Chart Check 24 hour chart check completed
[2016-09-06] MEDS: CEFAZOLIN 2 G in NORMAL SALINE 100 ML IV SCH (02:41)
[2016-09-06] MEDS: NOZIN NASAL SWAB NS SCH ×2 (05:04→14:41)
[2016-09-06 05:26] LABS: HGB - HEMOGLOBIN 11.8 GM/DL (12-16); MEAN CORPUSCULAR HGB 30.3 UUG (26-34); MEAN CORPUSCULAR HGB CONC(MCHC 31.9 GM/DL (31-37); MEAN CORPUSCULAR VOLUME 94.9 UM3 (80-100); MEAN PLATELET VOLUME 9.8 UM3 (9.4-12.4); RED BLOOD COUNT 3.9 M/MM3 (4.00-5.20); WBC - WHITE BLOOD COUNT 11.4 T/MM3 (4.5-11.0)
[2016-09-06 05:43] LABS: ANION GAP 14 MEQ/L (5-15); BUN/CREATININE RATIO 18 RATIO (6-26); CALCIUM 8.8 MG/DL (8.4-10.2); CHLORIDE 108 MEQ/L (98-107); CO2 - CARBON DIOXIDE 25 MEQ/L (22-30); CREATININE 0.8 MG/DL (0.7-1.2); GLOMERULAR FILTRATION RATE 69; GLUCOSE 126 MG/DL (65-110); INR 1.21 (0.76-1.04); POTASSIUM 4.4 MEQ/L (3.6-5); PROTHROMBIN TIME 13.2 SEC (9.31-12.49); SODIUM 147 MEQ/L (134-144)
--- NOTE | 2016-09-06 06:31 | NUR ---
SHIFT SUMMARY PT SLEPT SOUNDLY THROUGHOUT THE NIGHT. PT DENIED NEED FOR PAIN MEDS. PT GIVEN ZOFRAN X ONE FOR NAUSEA AFTER HAVING EMESIS LAST NIGHT. UP WITH ASSIST X ONE, GB, AND WALKER TO BATHROOM, SLIGHTLY UNSTEADY GAIT. REFUSED AMBULATION IN HALLWAY LAST NIGHT. NS RUNNING @ 80ML/HR IN RIGHT WRIST. SOFT DIET ORDERED THIS AM. CONTINUOUS OXIMETRY. BILAT SCD'S. DRESSING TO LEFT KNEE C/D/I, POLAR PACK IN USE. BED LOCKED AND LOW, BED ALARM ON. CALL LIGHT WITHIN REACH. WILL CONTINUE TO MONITOR.
--- NOTE | 2016-09-06 07:16 | NUR ---
COUMADIN CONSULT (Recurring): Today's INR = 1.21. Will give Warfarin 4 mg today. Will continue to monitor & make adjustments accordingly. Thank you.
--- NOTE | 2016-09-06 08:17 | NUR ---
ANTONIO CM IN TO VISIT WITH PT. SHE IS ALERT AND ORIENTED. ANTONIO EXPLAINS THAT AT THIS TIME SHE DOES NOT QUALIFY FOR MEDICARE TO PAY FOR SWING BED IN [place] BECAUSE SHE DOES NOT HAVE A 3 NIGHT QUALIFYING STAY. CM VISITS WITH PT ABOUT IRU. PT IS CONCERNED ABOUT GETTING HOME. CM INQUIRES IF PT HAS HELP THAT CAN LOOK AFTER HER HOME FOR HER. SHE IS GOING TO MAKE SOME CALLS. SHE GIVES PERMISSION FOR IRU SCREEN. CM WILL CHECK BACK WITH PT AFTER THERAPY TODAY. Addendum: 09/06/16 at 0819 by ABHIJEET PAPPAS RN Amended: Links added.
--- NOTE | 2016-09-06 08:23 | PDORTHOPN ---
Subjective Date DATE: 09/06/16 TIME: 08:18 Subjective Consuelo reported moderate pain last night but is better this AM. No specific complaints at this time. Oxygen required overnight but is off O2 this AM and sats are stable. No CP, SOA or cough. Had some nausea yesterday but is better this AM. Objective Vital Signs Vital signs Vital Signs 09/05/16 09/05/16 09/05/16 09/06/16 22:00 22:10 22:13 00:37 Temp 97.8 Pulse 86 Resp 18 B/P 142/59 Pulse Ox 84 96 100 O2 Delivery Nasal Cannula Room Air Nasal Cannula Nasal Cannula O2 Flow Rate 2.00 2.00 2.00 09/06/16 09/06/16 09/06/16 03:38 07:57 07:58 Temp 98.2 97.7 Pulse 88 82 82 Resp 18 18 18 B/P 139/68 163/73 Pulse Ox 97 100 O2 Delivery Nasal Cannula Room Air O2 Flow Rate 1.00 Height (Feet): 5 Height (Inches): 4.00 Weight (Kilograms): 57.200 General General Appearance: Alert, Well Developed, No Acute Distress Respiratory (Brief) Respiratory Brief: FOUND: non-labored Cardiovascular (Brief) Cardiac: FOUND: calf easily compressible, calf soft, nontender, pedal pulses intact Surgical Site Incision: FOUND: Mepilex dressing intact, no drainage Neurologic (Brief) Neurological Brief: FOUND: extremities w/o deficits, neuro intact Psychiatric (Brief) Psychiatric Brief: FOUND: alert, no acute distress Laboratory Laboratory Laboratory Tests 09/05/16 08:30 09/06/16 04:06 Laboratory Tests 09/05/16 08:30 09/06/16 04:06 Assessment & Plan Problems: (1) Degenerative arthritis of left knee Status: Chronic Qualifiers: Osteoarthritis type: primary Qualified Codes: M17.12 - Unilateral primary osteoarthritis, left knee Assessment & Plan: She reported a hx of gait instability prior to surgery and this might be a factor in recovery. She refused to get up and walk the hallway last night with nursing. Lovenox - Coumadin bridge protocol for VTE prophylaxis due to hx of cancer. SCD's and early mobilization for added DVT coverage. PT/OT services to improve independent function. Discharge Planning per Case Management. (2) Anxiety Status: Chronic (3) History of breast cancer Status: Chronic (4) Coronary artery disease Status: Chronic Hospital Course Summary Disclaimer The visit summary below is not to be considered part of the above Progress Note. BETTINA IYER Sep 06, 2016 08:22
[2016-09-06] MEDS ORDERED: LETROZOLE 2.5 MG TABLET PO SCH (09:00)
[2016-09-06] MEDS ORDERED: POLYETHYL.GLYCOL 3350 PACKET 17gm PO SCH (09:00)
[2016-09-06] MEDS ORDERED: FUROSEMIDE 20 MG TABLET PO SCH (09:00)
[2016-09-06] MEDS ORDERED: DOCUSATE SODIUM 100 MG CAPSULE PO SCH (09:00)
[2016-09-06] MEDS: OXYCODONE I.R. 5 MG TABLET PO PRN ×3 (09:13→16:34)
[2016-09-06] MEDS: CALCIUM 600mg + VIT D 400 TABLET PO SCH (09:14)
[2016-09-06] MEDS: LISINOPRIL 20 MG TABLET PO SCH (09:14)
[2016-09-06] MEDS: ACETAMINOPHEN 325 MG TABLET PO SCH ×3 (09:15→17:23)
--- NOTE | 2016-09-06 10:48 | NUR ---
IRU referral received. Met w/ patient and patient's nephew Kobe. Reviewed programmatic expectations of IRU and patient acknowledged expectation of 3 hours of therapy, 5 days/week. She stated that she did not believe this would be a problem and voiced solid motivation to return independently to home as soon as possible. Kobe addressed her concerns about her mail and someone checking on her house in [place]. She is interested in coming to IRU. CM informed. Will review case with Dr. Fan to determine if patient is accepted for IRU.
--- NOTE | 2016-09-06 11:25 | NUR ---
CM PT HAS BEEN ACCEPTED TO IRU.
[2016-09-06] MEDS ORDERED: WARFARIN 4 MG TABLET PO SCH (12:00)
[2016-09-06] MEDS ORDERED: DOCU-168 PO (12:07)
[2016-09-06] MEDS ORDERED: OXYC5TAB84 PO (12:07)
[2016-09-06] MEDS ORDERED: POLY17PO6 PO (12:07)
[2016-09-06] MEDS ORDERED: ACET-2321 PO (12:07)
--- NOTE | 2016-09-06 12:20 | DSPDOC ---
General Date Date DATE: 09/06/16 TIME: 12:11 Attending Physician Grady Almonte MD Admitting Physician Grady Almonte MD Consulting Physician Admitting Diagnosis PRIMARY DEGENERATIVE JOINT DISEASE LEFT KNEE Discharge Diagnosis Primary DJD left knee Procedures Left total knee arthroplasty History of Present Illness HPI Elements This patient was admitted for elective surgical tx of end stage degenerative joint disease that failed to respond to conservative treatment. Further details of this is found in the admission H&P. Hospital Course After appropriate preoperative clearance and signing of operative consent, the patient was given IV antibiotics, according to orthopedic protocol. The patient was taken to the operating room and underwent elective left total knee arthroplasty. Following surgery, antibiotics were discontinued less than 24 hours according to joint protocol. Lovenox and Coumadin protocols were initiated and SCDs added for DVT prevention. The dressing was clean, dry, and intact. Pain control was obtained via multimodal approach. Bowel motivation addressed with scheduled and PRN medications. Early mobilization was initiated through PT services. Discharge arrangements made by a collaborative effort between the patient and Case Management. Pt accepted to [facility] IR[facility] and transferred 09/06/16. Follow-up is scheduled in 2-3 weeks. Discharge instructions given by orthopedic providers and nursing staff at discharge. Discharge condition was good. Problems: (1) Degenerative arthritis of left knee Status: Chronic Assessment & Plan: She reported a hx of gait instability prior to surgery and this might be a factor in recovery. She was accepted to IRU and will be transferred for ongoing therapy needs. Lovenox - Coumadin bridge protocol for VTE prophylaxis due to hx of cancer. Pharmacy to manage Coumadin protocol. D/C Lovenox when INR > 1.5-2.0 Continue Coumadin for 1 month from the time of surgery. SCD's and early mobilization for added DVT coverage. PT/OT services to improve independent function. Discharge Planning per Case Management. Pt going to IRU today. (2) Anxiety Status: Chronic (3) History of breast cancer Status: Chronic (4) Coronary artery disease Status: Chronic Ongoing Care Required?: No Laboratory Laboratory Tests Test 09/06/16 04:06 White Blood Count 11.4T/MM3 Red Blood Count 3.90M/MM3 Hemoglobin 11.8GM/DL Hematocrit 37.0% Mean Corpuscular Volume 94.9UM3 Mean Corpuscular Hemoglobin 30.3UUG Mean Corpuscular Hemoglobin Concent 31.9GM/DL RDW Standard Deviation 44.4FL Platelet Count 218T/MM3 Mean Platelet Volume 9.8UM3 Prothromb Time International Ratio 1.21 Turbidity < 20 Sodium Level 147MEQ/L Potassium Level 4.4MEQ/L Chloride Level 108MEQ/L Carbon Dioxide Level 25MEQ/L Anion Gap 14MEQ/L Blood Urea Nitrogen 14.0MG/DL Creatinine 0.8MG/DL Glomerular Filtration Rate Calc 69 BUN/Creatinine Ratio 18RATIO Glucose Level 126MG/DL Calculated Osmolality 285MOSM/KG Calcium Level 8.8MG/DL Icterus Index < 2 Chemistry Specimen Hemolysis < 15 Home Meds Active Scripts Polyethylene Glycol 3350 (Miralax) 17 Gm Powd.pack, 17 G PO DAILY Y for CONSTIPATION, #1 BOTTLE Take 17 Grams (1 capful), by mouth, once a day. Prov:BETTINA IYER 09/06/16 Docusate Sodium (Colace) 100 Mg Capsule, 1 CAP PO BID, #60 CAP Prov:BETTINA IYER 09/06/16 Oxycodone HCl (Oxycodone HCl) 5 Mg Tablet, 5-15 MG PO Q3H Y for BREAKTHROUGH PAIN, #60 TAB Prov:BETTINA IYER 09/06/16 Acetaminophen (Tylenol) 325 Mg Tablet, 650 MG PO QID, #60 TAB Prov:BETTINA IYER 09/06/16 Reported Medications Furosemide (Furosemide) 20 Mg Tablet, 1 TAB PO DAILY, TAB 08/30/16 Lisinopril (Lisinopril) 20 Mg Tablet, 20 MG PO AM&1330, TAB TAKES EVERY MORNING AND AT 1330 08/30/16 Vitamin E Acetate (Vitamin E) 1,000 Unit Capsule, 1 CAP PO DAILY 08/29/16 Cinnamon Bark (Cinnamon) 500 Mg Capsule, 1 CAP PO DAILY 08/29/16 Letrozole (Femara) 2.5 Mg Tablet, 1 TAB PO DAILY, TAB TAKES AT 1000AM DAILY 08/29/16 Lorazepam (Lorazepam) 0.5 Mg Tablet, 0.5 MG PO HS Y for SLEEP, TAB 08/29/16 Ascorbic Acid (Vitamin C) 1,000 Mg Tablet, 1 TAB PO DAILY 08/29/16 Multivits,Ca,Minerals/Iron/FA (Women's Daily Caplet) 1 Each Tablet, 1 TAB PO DAILY 08/29/16 Biotin (Biotin) 5,000 Mcg Tab.rapdis, 1 TAB PO DAILY 08/29/16 Cranberry Extract (Cranberry) 500 Mg Capsule, 1 CAP PO DAILY 08/29/16 Calcium Carbonate/Vitamin D3 (Caltrate 600 + D Tablet) 1 Each Tablet, 2 TAB PO BID 08/29/16 Discharge Disposition IRU at [facility]. Estimated Blood Loss 100.0 BETTINA IYER Sep 06, 2016 12:14
--- NOTE | 2016-09-06 13:16 | NUR ---
ANTONIO CM IN TO VISIT WITH PT. SHE IS ALERT AND ORIENTED. SHE AND HER NEPHEW SPOKE WITH IRU. THEY HAVE DECIDED THAT IS THE BEST OPTION FOR DC. PT IS MADE AWARE THAT SHE HAS BEEN ACCEPTED TO IRU. Addendum: 09/06/16 at 1320 by ABHIJEET PAPPAS RN Amended: Links added.
--- NOTE | 2016-09-06 18:13 | NUR ---
Summary Pt A&OX3. VS stable on RA. Mepilex dressing c/d/i, and polar pack in place. Pt has been up in the recliner most of this shift. Pt denying pain after PRN oxicodone and scheduled Tylenol this afternoon, Pt has been sleeping off and on in the recliner. Chair alarm on, call light w/in reach. Pt has been up to the BR multiple times today w/ gait belt and walker with adequate urine output.
--- NOTE | 2016-09-06 18:40 | NUR ---
Discharge Pt discharged at this time via wheelchair to IRU unit. VS stable on RA. IV lock still in place at the time of transfer. Pts personal belongings sent with Pt as well as polar pack, walker, and cane. Report called to Lisha Andino RN prior to transfer.
[2016-09-07] MEDS ORDERED: MILK OF MAGNESIA 30 ML SUSP PO SCH (08:00)
[2016-09-07] MEDS ORDERED: BISACODYL 10 MG SUPPOSITORY RECTALLY SCH (20:00)
== END 2016-09-06 18:40 | DRG 470 ==
LOC: SRG 08:09
PROVIDERS: ADMIT Orthopaedic Surgery; ATTEND Orthopaedic Surgery
PROC: 0SRD0J9 Replacement of Left Knee Joint with Synthetic Substitute, Cemented, Open Approach (ICD-10-PCS; principal; 2016-09-05 10:56)
DX: M17.12 Unilateral primary osteoarthritis, left knee (principal); F41.9 Anxiety disorder, unspecified; I25.10 Atherosclerotic heart disease of native coronary artery without angina pectoris; J43.9 Emphysema, unspecified; I12.9 Hypertensive chronic kidney disease with stage 1 through stage 4 chronic kidney disease, or unspecified chronic kidney disease; N18.9 Chronic kidney disease, unspecified; I50.9 Heart failure, unspecified; I48.0 Paroxysmal atrial fibrillation; I73.9 Peripheral vascular disease, unspecified; G60.3 Idiopathic progressive neuropathy; Z87.891 Personal history of nicotine dependence; Z85.3 Personal history of malignant neoplasm of breast; Z96.641 Presence of right artificial hip joint; Z79.82 Long term (current) use of aspirin
CPT/HCPCS: 36415; 80048; 80053; 85025; 85027; 85610

== ENCOUNTER 2016-09-06 18:35 | Inpatient (IN) | payer MEDICARE, BC ==
[~2016-09-06] VITALS: Ht 162.6 cm; Wt 58.5 kg
[2016-09-06 18:30] VITALS: Ht 162.6 cm; Wt 58.5 kg
--- NOTE | 2016-09-06 18:30 | NUR ---
Admit A 81 year old female was admitted to room 183 via wheelchair escorted by staff. She was transferred with assist of 1, FWW, and gait belt. Reported discomfort of a 4/10 to the Lt knee. She has the polar pack in place at this time. Alert and oriented to person, place, and time. She has glasses, reports that at home she does wear hearing aides but she left them on her dresser at home. Her reason for admit is "knee operation done."
[~2016-09-06 18:35] MED LIST changes: +ACET-2321 PO; -ACETAMINOPHEN 500 MG TABLET PO ONE; -DEXAMETHASONE 4mg/ml - 1ml INJECTION IV ONE; +DOCU-168 PO; -FAMOTIDINE 20mg IVPB 50 ML IV ONE; -LIDOCAINE 1% (10mg/ml) 2ml SDV SQ ONE; -METOCLOPRAMIDE 10mg/2ml INJECTION IV ONE; -NORMAL SALINE 1,000 ML IV SCH; -NOZIN NASAL SWAB NS ONE; -ONDANSETRON 4mg/2ml INJECTION IV ONE; +OXYC5TAB84 PO; +POLY17PO6 PO
[2016-09-06 18:50] VITALS: BP 146/66; PULSE 90; RESP 16; TEMP 98.7; O2SAT 98
--- OUTSIDE RECORDS SUMMARY | 2016-09-06 19:25 | XMS REPORT | Continuity of Care Document ---
Author Author [facility] Organization [facility] Address Unknown Phone Unavailable Allergies Active Description Code Type Severity Reaction Onset Reported/Identified Relationship to Patient Clinical Status Yes No Known Drug Allergies [id number] Unknown N/A 12/18/2012 Medications Problems Date Dx [...] PAIN IN LEFT ELBOW 08/11/2015 MIGUEL ANGEL TORRES S M79.632 PAIN IN LEFT FOREARM 09/20/2015 [...] FOLLOWING A MUSCULOSKELETAL SYSTEM PROCEDURE 12/15/2015 LUCY, MARIA D K S I10 ESSENTIAL (PRIMARY) HYPERTENSION [...] LATERAL MENISCUS, LEFT KNEE 06/21/2016 [place] T CAR T~NS602 S C50.111 MALIGNANT NEOPLASM OF CENTRAL [...] Status Pt. Type Provider Facility Loc./Unit Complaint [id number] 08/19/2014 10:58:00 2014 23:59:00 DIS Outpatient Cachorro LEVIN, [facility].RESP [id number] 05/07/2012 11:15:00 2011 23:59:59 CLS Outpatient Rupal LEVIN, [facility] [email or web address]
--- OUTSIDE RECORDS SUMMARY | 2016-09-06 19:25 | XMS REPORT | Continuity of Care Document ---
Author Author [facility] Organization [facility] Address Unknown Phone Unavailable Support Name Relationship Address Phone DONTAE ANTHONY MD Caregiver [address] [place] [address] Unavailable DONTAE ANTHONY MD Caregiver [address] [place] [address] Unavailable LILY FOLEY Next Of Kin [address] [place], [place] [address] Insurance Providers Guarantor Goyo Neely Address [address] [place] [address] Email DENIED [facility] Policy Number [id number] Subscriber's Name Goyo Neely Relationship 18 Self Group Number [id number] Payer Medicare Policy Number [id number] Subscriber's Name Goyo eNely Relationship 18 Self Advance Directives Directive Response Recorded Date/Time Dr Ordered Resuscitation Status Full Code 09/04/16 2:10pm Problems Active Problems Medical Problem Onset Date Status Anxiety Unknown Chronic Coronary artery disease Unknown Chronic Degenerative arthritis of left knee Unknown Chronic Gait instability Unknown History of breast cancer Unknown Chronic Hypertension Unknown Overweight (BMI 25.0-29.9) Unknown Medications Current Home Medications Medication Dose Units Route Directions Days Qty Instructions Start Date Acetaminophen (Tylenol) 325 Mg Tablet 650 Mg Oral Four Times Daily 60 Tablet 09/06/16 Ascorbic Acid (Vitamin C) 1,000 Mg Tablet 1 Tab Oral Daily Biotin 5,000 Mcg Tab.rapdis 1 Tab Oral Daily 08/29/16 Calcium Carbonate/Vitamin D3 (Caltrate 600 + D Tablet) 1 Each Tablet 2 Tab Oral Twice A Day 08/29/16 Cinnamon Bark (Cinnamon) 500 Mg Capsule 1 Cap Oral Daily 08/29/16 Cranberry Extract (Cranberry) 500 Mg Capsule 1 Cap Oral Daily 04/06 Docusate Sodium (Colace) 100 Mg Capsule 1 Cap Oral Twice A Day 60 Capsule 09/06/16 Furosemide 20 Mg Tablet 1 Tab Oral Daily 08/30/16 Letrozole (Femara) 2.5 Mg Tablet 1 Tab Oral Daily TAKES AT 1000AM DAILY 08/29/16 Lisinopril 20 Mg Tablet 20 Mg Oral Am&1330 TAKES EVERY MORNING AND AT 1330 08/30/16 Lorazepam 0.5 Mg Tablet 0.5 Mg Oral Bedtime as needed for Sleep 08/29/16 Multivits,Ca,Minerals/Iron/Fa (Women's Daily Caplet) 1 Each Tablet 1 Tab Oral Daily 08/29/16 Oxycodone Hcl 5 Mg Tablet 5-15 Mg Oral Every 3 Hours as needed for Breakthrough Pain 60 Tablet 09/06/16 Polyethylene Glycol 3350 (Miralax) 17 Gm Powd.pack 17 G Oral Daily as needed for Constipation 1 Bottle Take 17 Grams (1 capful), by mouth, once a day. 09/06/16 Vitamin E Acetate (Vitamin E) 1,000 Unit Capsule 1 Cap Oral Daily 08/29/16 Social History Social History Problem Response Recorded Date/Time Onset Date Status Reason for Hospitalization Left TKA 09/06/2016 6:50pm Not Applicable Not Applicable Chewing Tobacco Status No 08/29/2016 2:16pm Not Applicable Not Applicable Hx Substance Use No 08/29/2016 2:16pm Not Applicable Not Applicable Hx Alcohol Use No 08/29/2016 2:16pm Not Applicable Not Applicable Has the pt used tobacco in the last 12 months No 09/05/2016 8:48am Not Applicable Not Applicable Query Response Start Date Stop Date Smoking Status Former smoker Hospital Discharge Instructions Instructions: Care Instructions: Reason for Hospitalization: Left TKA Discharge Diet: Resume normal diet as tolerated Discharge Activity: Continue the exercises you were given in the hospital three times a day. Your therapist will provide you with a home therapy program prior to your hospital discharge. As you feel stronger, increase the number of repetitions you do in each session. Please check with us before you swim, use a whirlpool, drive or ride a bicycle. Follow Up Appointments: [facility] IN [place] ON 09/07/2016 AT 9:15AM FOR PHYSICAL THERAPY [place]. PHONE [phone] DR MATIAS FERRARA OFFICE TWICE A WEEK (MONDAYS AND THURSDAYS) FOR INR LAB DRAW FOR FOUR WEEKS. PHONE [phone] Pending Lab / Results: Will be notified Patient Instructions: Driving may be resumed once you are no longer taking narcotic medications and feel you can safely operate the vehicle. You may wish to practice in an empty parking lot at first. Keep in mind that your reaction time will be delayed for up to 6 weeks after surgery. Contact your surgeon for antibiotics to take before having dental work. Wound/Incision Care: In most cases, a Mepilex dressing will be placed at the time of surgery. This dressing will not need to be covered while showering. Leave dressing in place until your follow-up appointment as long as it remains clean, dry and stuck down well around the edges. Call your Doctor if you encounter a problem with your dressing. Please avoid submerging your incision until it is completely healed, once the Mepilex dressing is removed. This includes bathtubs, swimming pools, and hot tubs. DO NOT USE ALCOHOL, PEROXIDE, OR OINTMENTS of any kind on your incision. Pain Scale Utilized to Educate Patient: 0-10 Pain Scale Pain Management/Treatment: Ice packs may be used, and will also help with the pain. You will be given a prescription for pain. Expected Signs/Symptoms: Some swelling around the incision, as well as in your feet and legs is normal. To help with this, elevate your feet on a footstool when sitting in a chair, and do the ankle pumps and circles whenever you are sitting still. Muscle action helps to move collected fluid out of the tissues and improve circulation. Ice packs may be used, and will also help with the pain. Report any persistent swelling, calf tenderness, increase in pain, or pain in the calf with warmth, or redness to your doctor. Notify Physician If: Report any complications to my office immmediately. This includes excessive bleeding, wound breakdown, redness around the wound, uncontrolled pain, or fever over 101 on 3 different measurements. Eat a balanced diet and get plenty of rest. During Business Hours:: If you have any questions or concerns, please call during regular office hours ([phone]). After Business Hours:: If you have any problems or need to reach a physician after hours or on the weekend please call the hospital's main number [phone] to have your physician paged. Condition at time of discharge: Good Plan of Care Discharge Date 09/06/16 6:40pm Disposition [facility] Instructions/Education Provided [facility] Postop Instructions [facility] General Instructions Prescriptions See Medication Section Additional Instructions/Education FOLLOW UP WITH 5-03-06 @ 1:00PM Resume Lovenox 40mg SQ daily until INR > 1.5-2.0 Coumadin protocol per pharmacy. Continue Coumadin until 1 month after surgery then d/c. Care Plan and Goals See Discharge Instructions Section Functional Status Query Response Date Recorded Mobility Status Ambulatory September 06, 2016 6:50pm Assistive Devices None September 06, 2016 6:50pm Activity Limitations None September 06, 2016 6:50pm Feeding Ability Independent September 06, 2016 6:50pm Toileting Ability Independent September 06, 2016 6:50pm Grooming Ability Independent September 06, 2016 6:50pm Dressing Ability Independent September 06, 2016 6:50pm Driving Ability Independent September 06, 2016 6:50pm Housework Ability Independent September 06, 2016 6:50pm Meal Preparation Ability Independent September 06, 2016 6:50pm Stair Climbing Ability Independent September 06, 2016 6:50pm Ability to complete ADL's impeded by Impaired Mobility September 06, 2016 6:50pm Cognitive/Perceptual Impairments Impaired vision September 06, 2016 6:50pm Visual Assistive Devices Glasses With patient September 05, 2016 1:16pm Hearing Assistive Devices Left hearing aid Right hearing aid September 05, 2016 1:16pm Allergies, Adverse Reactions, Alerts No known allergies. Immunizations Query Response on File Recorded Date/Time Hx Influenza Vaccination Y fall 201509/05/16 8:48am Hx Pneumococcal Vaccination Y PATIENT UNSURE OF DATE 09/05/16 8:48am Hx Influenza Vaccination Y fall 201509/05/16 8:48am Vital Signs Acute Vital Signs Vital Response Date/Time Temperature (Fahrenheit) 97.6 deg F (96.8 - 99.1) 09/06/2016 3:29pm Temperature (Calculated Celsius) 36.37251 degrees C (36.0 - 37.3) 09/06/2016 3:29pm Temperature Source Oral 09/06/2016 3:29pm Pulse Rate (adult) 85 bpm (60 - 100) 09/06/2016 3:29pm Respiratory Rate 16 breaths/min (10 - 20) 09/06/2016 3:29pm O2 Sat by Pulse Oximetry 97 % (90 - 100) 09/06/2016 3:29pm Oxygen Delivery Method Room Air 09/06/2016 3:29pm Oxygen Delivery Method Room Air 09/05/2016 5:08pm Oxygen Flow Rate 1.00 L/min 09/06/2016 3:38am Blood Pressure 132/54 mm Hg 09/06/2016 3:29pm Blood Pressure Source Automatic Cuff 09/06/2016 3:29pm Height (Feet) 5 feet 09/06/2016 8:23am Height (Inches) 4.00 inches 09/06/2016 8:23am Weight (Kilograms) 57.200 kg 09/06/2016 7:56am Body Mass Index (BMI) 20.8 09/05/2016 8:34am Results Laboratory Results Test Name Result Units Flags Reference Collection Date/Time Result Date/ Time Comments White Blood Count 11.4 T/MM3 D H 4.5-11.0 09/06/2016 4:06am 09/06/2016 6: 06am Red Blood Count 3.90 M/MM3 L 4.00-5.20 09/06/2016 4:06am 09/06/2016 6: 06am Hemoglobin 11.8 GM/DL D L 12-16 09/06/2016 4:06am 09/06/2016 6:06am Hematocrit 37.0 % D 36-46 09/06/2016 4:06am 09/06/2016 6:06am Mean Corpuscular Volume 94.9 UM3 80-100 09/06/2016 4:06am 09/06/2016 6: 06am Mean Corpuscular Hemoglobin 30.3 UUG 26-34 09/06/2016 4:06am 2016 6:06am Mean Corpuscular Hemoglobin Concent 31.9 GM/DL 31-37 09/06/2016 4:06am 09/06/2016 6:06am RDW Standard Deviation 44.4 FL 36.9-50.2 09/06/2016 4:06am 09/06/2016 6 :06am Platelet Count 218 T/MM3 130-400 09/06/2016 4:06am 09/06/2016 6:06am Mean Platelet Volume 9.8 UM3 9.4-12.4 09/06/2016 4:06am 09/06/2016 6: 06am Neutrophils (%) (Auto) 64.6 % 33-66 09/05/2016 8:30am 09/05/2016 8: 42am Lymphocytes (%) (Auto) 25.0 % 23-45 09/05/2016 8:30am 09/05/2016 8: 42am Monocytes (%) (Auto) 7.6 % 0-9.0 09/05/2016 8:30am 09/05/2016 8:42am Eosinophils (%) (Auto) 2.1 % 0-4 09/05/2016 8:30am 09/05/2016 8:42am Basophils (%) (Auto) 0.6 % 0-2 09/05/2016 8:30am 09/05/2016 8:42am Immature Granulocyte % (Auto) 0.1 % 0.0-0.5 09/05/2016 8:30am 2016 8:42am Absolute Neutrophils (auto) 4.3 T/MM3 1.8-7.7 09/05/2016 8:30am 2016 8:42am Absolute Lymphocytes (auto) 1.7 T/MM3 1-4.8 09/05/2016 8:30am 2016 8:42am Absolute Monocytes (auto) 0.5 T/MM3 0-0.8 09/05/2016 8:30am 09/05/2016 8:42am Absolute Eosinophils (auto) 0.1 T/MM3 0-0.5 09/05/2016 8:30am 2016 8:42am Absolute Basophils (auto) 0.0 T/MM3 0-0.2 09/05/2016 8:30am 09/05/2016 8:42am Absolute Immature Granulocyte (auto 0.01 T/MM3 0.00-0.03 09/05/2016 8: 30am 09/05/2016 8:42am Prothromb Time International Ratio 1.21 H 0.76-1.04 09/06/2016 4:06am 09/06/2016 5:43am THERAPUTIC RANGE=2.00-3.00 FOR ANTI-THROMBOSIS THERAPUTIC RANGE=2.50-3.50 FOR IMPLANTED VALVE Icterus Index < 2 0-7 09/06/2016 4:06am 09/06/2016 5:43am Chemistry Specimen Hemolysis < 15 0-25 09/06/2016 4:06am 09/06/2016 5 :43am 0-25: Specimen Exhibited No Hemolysis. Turbidity < 20 0-20 09/06/2016 4:06am 09/06/2016 5:43am Sodium Level 147 MEQ/L H 134-144 09/06/2016 4:06am 09/06/2016 5:43am Potassium Level 4.4 MEQ/L 3.6-5 09/06/2016 4:06am 09/06/2016 5:43am Chloride Level 108 MEQ/L H 98-107 09/06/2016 4:06am 09/06/2016 5:43am Carbon Dioxide Level 25 MEQ/L 22-30 09/06/2016 4:06am 09/06/2016 5: 43am Anion Gap 14 MEQ/L 5-15 09/06/2016 4:06am 09/06/2016 5:43am Blood Urea Nitrogen 14.0 MG/DL 7-17 09/06/2016 4:06am 09/06/2016 5: 43am Creatinine 0.8 MG/DL D 0.7-1.2 09/06/2016 4:0609/06/2016 6:03am BUN/Creatinine Ratio 18 RATIO 6-26 09/06/2016 4:06am 09/06/2016 5:43am Glomerular Filtration Rate Calc 69 09/06/2016 4:06am 09/06/2016 5: 43am Glucose Level 126 MG/DL H 65-110 09/06/2016 4:0609/06/2016 5:43am Calculated Osmolality 285 MOSM/KG H 261-280 09/06/2016 4:062016 5:43am Calcium Level 8.8 MG/DL D 8.4-10.2 09/06/2016 4:0609/06/2016 6:03am Total Bilirubin 1.10 MG/DL 0.20-1.30 09/05/2016 8:30am 09/05/2016 8: 50am Alkaline Phosphatase 73 U/L 38-126 09/05/2016 8:30am 09/05/2016 8:50am Total Protein 6.8 G/DL 6.3-8.2 09/05/2016 8:30am 09/05/2016 8:51am Albumin 4.2 G/DL 3.5-5.0 09/05/2016 8:30am 09/05/2016 8:50am Globulin 2.6 G/DL 2.4-3.6 09/05/2016 8:30am 09/05/2016 8:51am Albumin/Globulin Ratio 1.6 RATIO 1.1-2.2 09/05/2016 8:30am 09/05/2016 8 :51am Aspartate Amino Transf (AST/SGOT) 18 U/L 14-36 09/05/2016 8:30am 2016 8:50am Alanine Aminotransferase (ALT/SGPT) 21 U/L 9-52 09/05/2016 8:30am 09/05 8:50am Name: GOYO NEELY Unit #: [id number] : 1935 Sex: F Admit Date: 09/05/16 Loc / Svc: SRG Discharge Date: DIAGNOSTIC IMAGING REPORT Report #: [id number] [place], [place] Indication: ITS.REASON: POSTOP left knee replacement PROCEDURE: KNEE LEFT 2 VIEW: Encounter: Initial Comparison: None Findings: Postoperative changes of left total knee replacement are seen. There is expected postoperative subcutaneous gas. No evidence of hardware failure or acute fracture. No retained radiopaque surgical instruments or sponges. Overlying material causing artifact. Impression: New left total knee prosthesis without evidence of immediate complication. . Procedures Procedure Status Date Provider(s) Total replacement of left knee joint Completed 09/05/16 DONTAE ANTHONY MD Encounters Encounter Location Arrival/Admit Date Discharge/Depart Date Attending Provider Discharged Inpatient [facility] 09/05/16 8:09am 09/06/16 6:40pm DONTAE ANTHONY MD
[2016-09-06 20:27] VITALS: BP 117/52; PULSE 84; RESP 14; TEMP 98.1; O2SAT 96
[2016-09-06] MEDS ORDERED: POLYETHYL.GLYCOL 3350 PACKET 17gm PO PRN (20:30)
[2016-09-06] MEDS ORDERED: LORAZEPAM 0.5 MG TABLET PO PRN (20:30)
[2016-09-06] MEDS ORDERED: DOCUSATE SODIUM 100 MG CAPSULE PO SCH ×2 (21:00)
[2016-09-06 21:05] VITALS: PULSE 84; RESP 18
[2016-09-06] MEDS: LISINOPRIL 20 MG TABLET PO SCH (21:13)
[2016-09-06] MEDS: OXYCODONE I.R. 5 MG TABLET PO PRN (21:13)
[2016-09-06] MEDS: CALCIUM 600mg + VIT D 400 TABLET PO SCH (21:13)
[2016-09-06] MEDS: ACETAMINOPHEN 325 MG TABLET PO SCH (21:14)
[2016-09-07] VITALS (9 sets, daily range): BP systolic 70–113; BP diastolic 38–64; PULSE 75–170; RESP 16–20; TEMP 97–98.7; O2SAT 95–100
--- NOTE | 2016-09-07 03:00 | NUR ---
Chart Check 24 hour chart check completed
[2016-09-07] MEDS: OXYCODONE I.R. 5 MG TABLET PO PRN ×6 (04:20→22:00)
--- NOTE | 2016-09-07 04:40 | NUR ---
CARDIO. DR HOLLIS TO SEE PT. AMIODARONE ALAN SALGADO DISCUSSED WITH HIM AND RESTRICTIONS OF USE ON IRU. HE SAID WILL CHANGE TO PO. AWAITING NEW ORDER. Addendum: 09/07/16 at 1999 by BRODERICK BARRERA RN CARDIO SEEN AT 1640.
[2016-09-07 05:02] LABS: BASOPHILS # (AUTO) 0.1 T/MM3 (0-0.2); BASOPHILS % (AUTO) 0.5 % (0-2); EOSINOPHILS # (AUTO) 0.1 T/MM3 (0-0.5); EOSINOPHILS % (AUTO) 0.5 % (0-4); HCT - HEMATOCRIT 33.3 % (36-46); HGB - HEMOGLOBIN 10.8 GM/DL (12-16); IMMATURE GRANULOCYTE # (AUTO) 0.01 T/MM3 (0.00-0.03); IMMATURE GRANULOCYTE % (AUTO) 0.1 % (0.0-0.5); LYMPHOCYTES % (AUTO) 20.3 % (23-45); MEAN CORPUSCULAR HGB 30.4 UUG (26-34); MEAN CORPUSCULAR HGB CONC(MCHC 32.4 GM/DL (31-37); MEAN CORPUSCULAR VOLUME 93.8 UM3 (80-100); MEAN PLATELET VOLUME 9.6 UM3 (9.4-12.4); MONOCYTES # (AUTO) 0.9 T/MM3 (0-0.8); MONOCYTES % (AUTO) 9.5 % (0-9.0); NEUTROPHILS #(AUTO)-ABSOLUTE 6.8 T/MM3 (1.8-7.7); NEUTROPHILS % (AUTO) 69.1 % (33-66); RED BLOOD COUNT 3.55 M/MM3 (4.00-5.20); WBC - WHITE BLOOD COUNT 9.8 T/MM3 (4.5-11.0)
[2016-09-07 05:26] LABS: INR 2.22 (0.76-1.04); PROTHROMBIN TIME 24.2 SEC (9.31-12.49)
[2016-09-07 05:34] LABS: ANION GAP 12 MEQ/L (5-15); BUN/CREATININE RATIO 15 RATIO (6-26); CALCIUM 9.7 MG/DL (8.4-10.2); CHLORIDE 105 MEQ/L (98-107); CO2 - CARBON DIOXIDE 27 MEQ/L (22-30); GLOMERULAR FILTRATION RATE 53; GLUCOSE 105 MG/DL (65-110); SODIUM 144 MEQ/L (134-144)
--- NOTE | 2016-09-07 06:04 | NUR ---
Summary Patient alert and oriented x3. Patient is pleasant and cooperative with cares. Needs encouragement to use call light. Patient complained of pain after admission, prn roxicodone 15mg given po at 2113. Patient stated relief and that it was helping. Patient is up with 1 assist, fww, and gaitbelt. set up for upper body cares, and minimal assist with lower body cares. No complaints of N/V. Patient slept well after hs medications and prn medication until waking up to use restroom at 0410. Patient complained of pain and being stiff. Patient received prn roxicodone 15mg po at 0420. And Polar pack was refreshed. Patient is compliant with bilat SCDs, though needs reminded and encouraged to use IS. Patient is currently asleep in bed with the bed alarm on, rails upx2, and call light is in reach.
[2016-09-07] MEDS ORDERED: ENOXAPARIN 40 MG/0.4 ML INJECTION SQ SCH (09:00)
--- NOTE | 2016-09-07 09:32 | NUR ---
ANTONIO BARNES SCORE IS 7. Addendum: 09/07/16 at 0932 by THIAGO CESPEDES Amended: Links added.
--- NOTE | 2016-09-07 09:41 | NUR ---
COUMADIN CONSULT (Recurring): Today's INR = 2.22. Will give no Warfarin today. INR increased significantly from 1.21 to 2.22. Consider dc'ing enoxaparin on 09/08 if INR in range. Will continue to monitor & make adjustments accordingly. Thank you.
[2016-09-07] MEDS: DOCUSATE SODIUM 100 MG CAPSULE PO SCH ×2 (09:42→21:25)
[2016-09-07] MEDS: CALCIUM 600mg + VIT D 400 TABLET PO SCH ×2 (09:42→21:24)
[2016-09-07] MEDS: FUROSEMIDE 20 MG TABLET PO SCH (09:43)
[2016-09-07] MEDS: LETROZOLE 2.5 MG TABLET PO SCH (09:43)
[2016-09-07] MEDS: ACETAMINOPHEN 325 MG TABLET PO SCH ×4 (09:46→21:29)
[2016-09-07] MEDS: LISINOPRIL 20 MG TABLET PO SCH ×2 (09:50→21:26)
[2016-09-07] MEDS: VITAMIN E 1,000 UNIT CAPSULE PO SCH (09:51)
--- NOTE | 2016-09-07 10:51 | CONSPD ---
UBALDO POPE V BUGGY RUNNER 09/07/16 1038: Consultation Info Date DATE: 09/07/16 TIME: 10:35 Date of Consultation: Sep 07, 2016 Attending Physician: Zechariah Reason for Consultation: HTN, hx breast cancer HPI - Adult Date DATE: 09/07/16 TIME: 10:35 General Chief Complaint: S/P left total knee arthroplasty History of Present Illness Patient is an 81-year-old female who underwent an elective left knee arthroplasty under the care of Dr. Almonte for severe degenerative disease on . She tolerated surgery well however, continues to have moderate pain to the left knee with decreased function and strength postoperatively. She was accepted to the inpatient rehabilitation unit for ongoing therapy. Given her existing medical comorbidities including coronary artery disease, carotid artery stenosis, emphysema, hypertension, history of breast cancer. The hospitalist services were consulted for medical management on the IRU unit. Morning laboratory studies were reviewed, WBC count 9.8, hemoglobin 10.8, hematocrit 33.3, platelet count 225. Sodium is 144, potassium 4.0, BUN 15, creatinine 1.0. INR today 2.22. Past Medical History Past Medical History Coronary artery disease Aortic valve insufficiency Carotid artery stenosis Hypertension History of right-sided breast cancer-2009 Emphysema Neuropathy History of stomach ulcers Osteoarthritis Surgical History Patient's Surgical History: Tonsillectomy Right breast lumpectomy Right total hip arthroplasty Left knee arthroscopy-2016 Eye surgery Current Medications Home Meds Active Scripts Polyethylene Glycol 3350 (Miralax) 17 Gm Powd.pack, 17 G PO DAILY Y for CONSTIPATION, #1 BOTTLE Take 17 Grams (1 capful), by mouth, once a day. Prov:BETTINA IYER 09/06/16 Docusate Sodium (Colace) 100 Mg Capsule, 1 CAP PO BID, #60 CAP Prov:BETTINA IYER 09/06/16 Oxycodone HCl (Oxycodone HCl) 5 Mg Tablet, 5-15 MG PO Q3H Y for BREAKTHROUGH PAIN, #60 TAB Prov:BETTINA IYER 09/06/16 Acetaminophen (Tylenol) 325 Mg Tablet, 650 MG PO QID, #60 TAB Prov:BETTINA YIER 09/06/16 Reported Medications Furosemide (Furosemide) 20 Mg Tablet, 1 TAB PO DAILY, TAB 08/30/16 Lisinopril (Lisinopril) 20 Mg Tablet, 20 MG PO AM&1330, TAB TAKES EVERY MORNING AND AT 1330 08/30/16 Vitamin E Acetate (Vitamin E) 1,000 Unit Capsule, 1 CAP PO DAILY 08/29/16 Cinnamon Bark (Cinnamon) 500 Mg Capsule, 1 CAP PO DAILY 08/29/16 Letrozole (Femara) 2.5 Mg Tablet, 1 TAB PO DAILY, TAB TAKES AT 1000AM DAILY 08/29/16 Lorazepam (Lorazepam) 0.5 Mg Tablet, 0.5 MG PO HS Y for SLEEP, TAB 08/29/16 Ascorbic Acid (Vitamin C) 1,000 Mg Tablet, 1 TAB PO DAILY 08/29/16 Multivits,Ca,Minerals/Iron/FA (Women's Daily Caplet) 1 Each Tablet, 1 TAB PO DAILY 08/29/16 Biotin (Biotin) 5,000 Mcg Tab.rapdis, 1 TAB PO DAILY 08/29/16 Cranberry Extract (Cranberry) 500 Mg Capsule, 1 CAP PO DAILY 08/29/16 Calcium Carbonate/Vitamin D3 (Caltrate 600 + D Tablet) 1 Each Tablet, 2 TAB PO BID 08/29/16 Allergies: Coded Allergies: No Known Allergies (Unverified , 09/05/16) Family History Family History: Mother- DM, HTN Sister- Breast cancer Social History Smoking Status: Current every day smoker Does patient use chewing tobac: No # of Packs/Tins per Day: 1 # of Years: 40 Second Hand Exposure: No Substance Use Type: does not use Advance Directives: Yes DPOA for Healthcare Only, Yes Full Code Social History Comments PCP Jomar Petty- Review of Systems Constitutional: REPORTS: appetite decrease, fatigue Musculoskeletal General: pain (left knee pain- postop) All Other Systems All Other Systems: Reviewed (remainder of 10-point ROS Neg.) Physical Exam General General Nourishment: well nourished, well developed Vital Signs Vital Signs Date Time Temp Pulse Resp B/P Pulse Ox O2 Delivery O2 Flow Rate FiO2 09/07/16 08:00 98.5 104 16 113/51 95 Nasal Cannula 2.00 Height (Feet): 5 Height (Inches): 4.00 Eyes Brief: FOUND: EOMI, PERRL ENMT Brief: FOUND: mucosa moist, normal dentition, NOT FOUND: pharnyx erythema Respiratory Brief: FOUND: clear all wooten, equal bilaterally, NOT FOUND: wheezes Cardiovascular (brief) Cardiac Brief: FOUND: regular rate, regular rhythm, NOT FOUND: murmur, pedal edema Abdomen (brief) Abdominal Brief: FOUND: BS normo active x4, soft, NOT FOUND: distended, tender Musculoskeletal (brief) Musculoskeletal Brief: FOUND: tenderness (left knee) Neurologic (brief) Neurological Brief: FOUND: cranial 2-12 intact Neurologic RN Documented GCS Eye Opening: Verbal: Motor: Total: Psychiatric (brief) FOUND: alert, attentive, normal affect, oriented Laboratory Laboratory Tests Test 09/07/16 04:37 White Blood Count 9.8T/MM3 Red Blood Count 3.55M/MM3 Hemoglobin 10.8GM/DL Hematocrit 33.3% Mean Corpuscular Volume 93.8UM3 Mean Corpuscular Hemoglobin 30.4UUG Mean Corpuscular Hemoglobin Concent 32.4GM/DL RDW Standard Deviation 44.0FL Platelet Count 225T/MM3 Mean Platelet Volume 9.6UM3 Immature Granulocyte % (Auto) 0.1% Neutrophils (%) (Auto) 69.1% Lymphocytes (%) (Auto) 20.3% Monocytes (%) (Auto) 9.5% Eosinophils (%) (Auto) 0.5% Basophils (%) (Auto) 0.5% Absolute Immature Granulocyte (auto 0.01T/MM3 Absolute Neutrophils (auto) 6.8T/MM3 Absolute Lymphocytes (auto) 2.0T/MM3 Absolute Monocytes (auto) 0.9T/MM3 Absolute Eosinophils (auto) 0.1T/MM3 Absolute Basophils (auto) 0.1T/MM3 Prothromb Time International Ratio 2.22 Turbidity < 20 Sodium Level 144MEQ/L Potassium Level 4.0MEQ/L Chloride Level 105MEQ/L Carbon Dioxide Level 27MEQ/L Anion Gap 12MEQ/L Blood Urea Nitrogen 15.0MG/DL Creatinine 1.0MG/DL Glomerular Filtration Rate Calc 53 BUN/Creatinine Ratio 15RATIO Glucose Level 105MG/DL Calculated Osmolality 278MOSM/KG Calcium Level 9.7MG/DL Icterus Index < 2 Chemistry Specimen Hemolysis < 15 Impression/Recommendation Problems: (1) Gait instability Status: Acute (2) History of arthroplasty of left knee Status: Acute Assessment & Plan: 09/05/16- Dr Almonte (3) Aortic valve insufficiency Status: Chronic (4) Carotid artery stenosis Status: Chronic (5) Coronary artery disease Status: Chronic (6) Hypertension Status: Chronic (7) Anxiety Status: Chronic (8) History of breast cancer Status: Chronic Recommendation Agree with admission to the inpatient dilatation unit under the care of Dr. Fan Given her history of cancer. It is recommended that she have full anticoagulation postoperatively for thrombus prophylaxis. Patient started on Coumadin with bridge to Lovenox until INR is therapeutic. INR today 2.22. Will have pharmacy manage Coumadin dosing Oxycodone as needed for postoperative pain control. Colace and MiraLAX for postoperative bowel motivation.. Will follow routine labs to monitor for postoperative anemia. Encourage work with PT/OT services to improve independent function and strengthening Hospital services will continue to follow patient medically manage her existing comorbidities. At time of discharge her medical care will return to her primary care provider [facility], Dr. Jomar Yo 1450- called by nursing staff acutely to evaluate patient for tachycardia, rate 150-170. Stat EKG was obtained. Patient was found to be in atrial fibrillation with RVR. Patient did report having some brief dizziness prior to this episode. She is placed on cardiac telemetry. She was initially given Cardizem 10 milligrams IV 1. IV site was then found to be infiltrated. Lopressor 5 mg IV was then given in a second IV site. Rate mildly decreased down to the 120s. However, she remains in atrial fibrillation. Dr. Fleming was consulted for further cardiac evaluation and treatment. Serial Troponins ordered. Contacted Pharmacy regarding infiltrate treatment. Ice pack placed. LENO MERINO MD 09/07/16 1533: Past Medical History Current Medications Home Meds Active Scripts Polyethylene Glycol 3350 (Miralax) 17 Gm Powd.pack, 17 G PO DAILY Y for CONSTIPATION, #1 BOTTLE Take 17 Grams (1 capful), by mouth, once a day. Prov:BETTINA IYER 09/06/16 Docusate Sodium (Colace) 100 Mg Capsule, 1 CAP PO BID, #60 CAP Prov:BETTINA IYER 09/06/16 Oxycodone HCl (Oxycodone HCl) 5 Mg Tablet, 5-15 MG PO Q3H Y for BREAKTHROUGH PAIN, #60 TAB Prov:BETTINA IYER 09/06/16 Acetaminophen (Tylenol) 325 Mg Tablet, 650 MG PO QID, #60 TAB Prov:BETTINA IYER 09/06/16 Reported Medications Furosemide (Furosemide) 20 Mg Tablet, 1 TAB PO DAILY, TAB 08/30/16 Lisinopril (Lisinopril) 20 Mg Tablet, 20 MG PO AM&1330, TAB TAKES EVERY MORNING AND AT 1330 08/30/16 Vitamin E Acetate (Vitamin E) 1,000 Unit Capsule, 1 CAP PO DAILY 08/29/16 Cinnamon Bark (Cinnamon) 500 Mg Capsule, 1 CAP PO DAILY 08/29/16 Letrozole (Femara) 2.5 Mg Tablet, 1 TAB PO DAILY, TAB TAKES AT 1000AM DAILY 08/29/16 Lorazepam (Lorazepam) 0.5 Mg Tablet, 0.5 MG PO HS Y for SLEEP, TAB 08/29/16 Ascorbic Acid (Vitamin C) 1,000 Mg Tablet, 1 TAB PO DAILY 08/29/16 Multivits,Ca,Minerals/Iron/FA (Women's Daily Caplet) 1 Each Tablet, 1 TAB PO DAILY 08/29/16 Biotin (Biotin) 5,000 Mcg Tab.rapdis, 1 TAB PO DAILY 08/29/16 Cranberry Extract (Cranberry) 500 Mg Capsule, 1 CAP PO DAILY 08/29/16 Calcium Carbonate/Vitamin D3 (Caltrate 600 + D Tablet) 1 Each Tablet, 2 TAB PO BID 08/29/16 Allergies: Coded Allergies: No Known Allergies (Unverified , 09/05/16) Impression/Recommendation Problems: (1) History of arthroplasty of left knee Status: Acute (2) Anemia following surgery (3) Atrial fibrillation with rapid ventricular response Status: Acute (4) Anxiety Status: Chronic (5) Hypertension Status: Chronic (6) Coronary artery disease Status: Chronic (7) Aortic valve insufficiency Status: Chronic (8) Gait instability Status: Acute (9) Idiopathic progressive neuropathy (10) Aortic insufficiency (11) Carotid artery stenosis Status: Chronic (12) History of breast cancer Status: Chronic (13) Degenerative arthritis of left knee Status: Chronic Impression I have independently evaluated and examined this patient. I reviewed the chart, the patient's history, and the BUGGY RUNNER's documented findings as above. We discussed and formulated the assessment and plan as above with additions as below: Surgical record and preoperative clearance reviewed. Patient seen shortly after converting to atrial fibrillation with rapid ventricular response. Patient denies chest pain or dyspnea but is very focused on right wrist pain due to infiltration of Cardizem and limited history can be obtained from the patient. Records indicate history of coronary disease, aortic insufficiency, and PAF- presumably paroxysmal A. fib. No echo included in records received preoperatively. Preop EKG definitely sinus. No TSH in preoperative labs. On examination the patient is alert and focused on her right wrist which is moderately swollen. Respirations are nonlabored with good airflow, breath sounds are diminished somewhat throughout but no wheezing or crackles appreciated anteriorly. Cardiac rhythm is irregular with low-grade tachycardia following administration of beta naresh. Abdomen benign. Trace edema left ankle, surgical dressing in place over the left knee but no surrounding erythema or warmth. Sensation intact bilateral lower extremities Dr. Fleming consulted, cardioversion planned due to hypotension with onset of atrial fibrillation. Amiodarone being initiated. INR therapeutic, if INR> 2 tomorrow can discontinue Lovenox. Perioperatively hemoglobin dropped from 15 to just below 11, continue to monitor. 3 doses of OxyIR since midnight; may require more aggressive bowel regimen. UBALDO POPE APRN Sep 07, 2016 10:38 LENO MERINO MD Sep 07, 2016 15:33
--- NOTE | 2016-09-07 11:33 | NUR ---
CM THIS WORKER VISITED PT IN ROOM, INTRODUCED SELF AND ROLE OF CASE MANAGEMENT. PT STATED SHE PLANS ON RETURNING HOME TO [place] ONCE SHE D/C. PT STATED SHE HAS GOOD FAMILY SUPPORT, PT DENIED NEEDING HOME HEALTH, PT STATED "I AM CAPABLE OF TAKING CARE OF MYSELF". PT STATED SHE HAS A 2WW AND CANE, 2WW IS AT THE HOSPITAL. PT DENIED ANY NEEDS AT THIS TIME AND WAS ENCOURAGED TO PARKING GARAGE MANAGER IF ANY QUESTIONS/CONCERNS ARISE.
[2016-09-07] MEDS ORDERED: DILTIAZEM 25mg/5ml INJECTION IV ONE (14:30)
[2016-09-07] MEDS ORDERED: METOPROLOL 5mg/5ml INJECTION IV ONE (14:45)
--- NOTE | 2016-09-07 14:45 | NUR ---
Status At 1345 PT informed nursing that patient BP was 70/49, HR 170 and patient was light headed and dizzy, diaphoretic. No complaints of chest pain or discomfort. Patient vitals retaken a few moments later with BP 93/65, HR 148, patient states she is no longer dizzy. Taken to room, to lie down. Leti Mcmahan called to report symptoms. STAT EKG ordered as well as telemetry which showed atrial fib. Cardizem 10mg IV pushed through IV to right hand. A few minutes later patient complained of itching and discomfort to IV site. IV site d/cd and new site started to right forearm by MULTIFOCAL BUTTON INSPECTOR. Lopressor 5mg IV given. Ice pack to right hand which patient stated felt better after a short time. Patient continued to state she felt fine. NPO and therapy on hold for possible cardioversion.
[2016-09-07] MEDS ORDERED: AMIODARONE 900 MG in NORMAL SALINE 500 ML IV SCH ×2 (15:00→21:00)
[2016-09-07] MEDS ORDERED: AMIODARONE 150 MG in NORMAL SALINE 100 ML IV ONE (15:00)
--- NOTE | 2016-09-07 15:12 | CONSPD ---
LILY PATTERSON CONCRETE MIXER OPERATOR HELPER 09/07/16 1506: Consultation Info Date DATE: 09/07/16 TIME: 15:01 Date of Consultation: Sep 07, 2016 Attending Physician: Gerson Fan MD Reason for Consultation: A Fib RVR HPI - Adult Date DATE: 09/07/16 TIME: 15:01 General Date of Admission Date of Admission: Sep 06, 2016 at 18:35 Chief Complaint: S/P left total knee arthroplasty History of Present Illness Consuelo is an 81-year-old female who underwent an elective left knee arthroplasty under the care of Dr. Almonte for severe degenerative disease on 09/05/16. She tolerated surgery well however, continues to have moderate pain to the left knee with decreased function and strength postoperatively. She was accepted to the inpatient rehabilitation unit for ongoing therapy. Given her existing medical comorbidities including coronary artery disease, paroxysmal A Fib, carotid artery stenosis, emphysema, hypertension, history of breast cancer. This morning she is reported to be SOA, and about an hour ago was found to have a heart rate in the 170s and an EKG was obtained that shows A Fib with RVR. She was given Cardizem 10mg IV which infiltrated into her SQ tissue and after another IV was started she was given Metoprolol which slowed her rate to the 110s. Dr. Tran is being consulted and plan DCCV this afternoon Past Medical History Past Medical History Metabolic: cancer (breast), hypercholesterolemia, hypertension Cardiac: A-fib, CAD, other (aortic valve insufficiency, carotid artery stenosis ) Respiratory: COPD (emphysema) GI: ulcers (stomach) Neurological: neuropathy Musculoskeletal: osteoarthritis Surgical History General: tonsils Reproductive/: other (rt breast lumpectomy) Joint: hip (right), knee (left), other (eye) Current Medications Home Meds Active Scripts Polyethylene Glycol 3350 (Miralax) 17 Gm Powd.pack, 17 G PO DAILY Y for CONSTIPATION, #1 BOTTLE Take 17 Grams (1 capful), by mouth, once a day. Prov:BETTINA IYER 09/06/16 Docusate Sodium (Colace) 100 Mg Capsule, 1 CAP PO BID, #60 CAP Prov:BETTINA IYER 09/06/16 Oxycodone HCl (Oxycodone HCl) 5 Mg Tablet, 5-15 MG PO Q3H Y for BREAKTHROUGH PAIN, #60 TAB Prov:BETTINA IYER 09/06/16 Acetaminophen (Tylenol) 325 Mg Tablet, 650 MG PO QID, #60 TAB Prov:BETTINA IYER 09/06/16 Reported Medications Furosemide (Furosemide) 20 Mg Tablet, 1 TAB PO DAILY, TAB 08/30/16 Lisinopril (Lisinopril) 20 Mg Tablet, 20 MG PO AM&1330, TAB TAKES EVERY MORNING AND AT 1330 08/30/16 Vitamin E Acetate (Vitamin E) 1,000 Unit Capsule, 1 CAP PO DAILY 08/29/16 Cinnamon Bark (Cinnamon) 500 Mg Capsule, 1 CAP PO DAILY 08/29/16 Letrozole (Femara) 2.5 Mg Tablet, 1 TAB PO DAILY, TAB TAKES AT 1000AM DAILY 08/29/16 Lorazepam (Lorazepam) 0.5 Mg Tablet, 0.5 MG PO HS Y for SLEEP, TAB 08/29/16 Ascorbic Acid (Vitamin C) 1,000 Mg Tablet, 1 TAB PO DAILY 08/29/16 Multivits,Ca,Minerals/Iron/FA (Women's Daily Caplet) 1 Each Tablet, 1 TAB PO DAILY 08/29/16 Biotin (Biotin) 5,000 Mcg Tab.rapdis, 1 TAB PO DAILY 08/29/16 Cranberry Extract (Cranberry) 500 Mg Capsule, 1 CAP PO DAILY 08/29/16 Calcium Carbonate/Vitamin D3 (Caltrate 600 + D Tablet) 1 Each Tablet, 2 TAB PO BID 08/29/16 Allergies: Coded Allergies: No Known Allergies (Unverified , 09/05/16) Family History FOUND: cancer (breast-sister), diabetes (mother), hypertension (mother) Vaccines PATIENT UNSURE OF DATE Social History Smoking Status: Current every day smoker Does patient use chewing tobac: No # of Packs/Tins per Day: 1 # of Years: 40 Second Hand Exposure: No Substance Use Type: does not use Advance Directives: Yes DPOA for Healthcare Only, Yes Full Code Review of Systems Constitutional: REPORTS: fatigue, weakness, DENIES: chills, dizziness, fever, syncope Eyes Vision: DENIES: double vision ENMT Hearing: DENIES: tinnitus Balance: DENIES: vertigo Sinuses: NOT FOUND: rhinorrhea Mouth/Throat: DENIES: sore throat Cardiovascular dyspnea on exertion, DENIES: chest pain, murmur, orthopnea, paroxysmal nocturnal dysp Rhythm/Rate: irregular beat, palpitations, tachycardia Vascular: DENIES: pedal edema Pulmonary Respiratory: DENIES: cough, sputum GI Upper Abdomen: DENIES: nausea, vomiting Lower Abdomen: DENIES: diarrhea General: DENIES: dysuria Musculoskeletal General: pain (left knee), weakness Integumentary Skin: DENIES: rash, sores Neurological General: other (slurred speech), weakness, DENIES: headache, numbness, syncope All Other Systems All Other Systems: Reviewed (remainder of 10-point ROS Neg.) Physical Exam General General Nourishment: well nourished, well developed, apparent age Vital Signs Vital Signs Date Time Temp Pulse Resp B/P Pulse Ox O2 Delivery O2 Flow Rate FiO2 09/07/16 13:55 138 112/60 09/07/16 08:00 98.5 16 95 Nasal Cannula 2.00 Height (Feet): 5 Height (Inches): 4.00 Telemetry Rhythm: Atrial Fibrillation ENMT Brief: FOUND: mucosa moist Neck Brief: NOT FOUND: JVD, carotid bruits Respiratory Brief: FOUND: clear all wooten, equal bilaterally, NOT FOUND: rales , wheezes Cardiovascular (brief) Cardiac Brief: FOUND: regular rate, regular rhythm, NOT FOUND: click, gallop, murmur, pedal edema Abdomen (brief) Abdominal Brief: FOUND: BS normo active x4, soft, NOT FOUND: tender Integumentary (brief) Integumentary Brief: FOUND: dry, pink, warm Neurologic RN Documented GCS Eye Opening: Verbal: Motor: Total: Psychiatric (brief) FOUND: alert, oriented Laboratory Laboratory Tests Test 09/07/16 04:37 09/07/16 14:47 White Blood Count 9.8T/MM3 Red Blood Count 3.55M/MM3 Hemoglobin 10.8GM/DL Hematocrit 33.3% Mean Corpuscular Volume 93.8UM3 Mean Corpuscular Hemoglobin 30.4UUG Mean Corpuscular Hemoglobin Concent 32.4GM/DL RDW Standard Deviation 44.0FL Platelet Count 225T/MM3 Mean Platelet Volume 9.6UM3 Immature Granulocyte % (Auto) 0.1% Neutrophils (%) (Auto) 69.1% Lymphocytes (%) (Auto) 20.3% Monocytes (%) (Auto) 9.5% Eosinophils (%) (Auto) 0.5% Basophils (%) (Auto) 0.5% Absolute Immature Granulocyte (auto 0.01T/MM3 Absolute Neutrophils (auto) 6.8T/MM3 Absolute Lymphocytes (auto) 2.0T/MM3 Absolute Monocytes (auto) 0.9T/MM3 Absolute Eosinophils (auto) 0.1T/MM3 Absolute Basophils (auto) 0.1T/MM3 Prothromb Time International Ratio 2.22 Turbidity < 20 Sodium Level 144MEQ/L Potassium Level 4.0MEQ/L Chloride Level 105MEQ/L Carbon Dioxide Level 27MEQ/L Anion Gap 12MEQ/L Blood Urea Nitrogen 15.0MG/DL Creatinine 1.0MG/DL Glomerular Filtration Rate Calc 53 BUN/Creatinine Ratio 15RATIO Glucose Level 105MG/DL Calculated Osmolality 278MOSM/KG Calcium Level 9.7MG/DL Icterus Index < 2 Chemistry Specimen Hemolysis < 15 < 15 Magnesium Level 1.9MG/DL Troponin I 0.046ng/ml Thyroid Stimulating Hormone (TSH) 4.95MIU/L Laboratory Tests Test 09/07/16 04:37 White Blood Count 9.8T/MM3 Red Blood Count 3.55M/MM3 Hemoglobin 10.8GM/DL Hematocrit 33.3% Mean Corpuscular Volume 93.8UM3 Mean Corpuscular Hemoglobin 30.4UUG Mean Corpuscular Hemoglobin Concent 32.4GM/DL RDW Standard Deviation 44.0FL Platelet Count 225T/MM3 Mean Platelet Volume 9.6UM3 Immature Granulocyte % (Auto) 0.1% Neutrophils (%) (Auto) 69.1% Lymphocytes (%) (Auto) 20.3% Monocytes (%) (Auto) 9.5% Eosinophils (%) (Auto) 0.5% Basophils (%) (Auto) 0.5% Absolute Immature Granulocyte (auto 0.01T/MM3 Absolute Neutrophils (auto) 6.8T/MM3 Absolute Lymphocytes (auto) 2.0T/MM3 Absolute Monocytes (auto) 0.9T/MM3 Absolute Eosinophils (auto) 0.1T/MM3 Absolute Basophils (auto) 0.1T/MM3 Prothromb Time International Ratio 2.22 Turbidity < 20 Sodium Level 144MEQ/L Potassium Level 4.0MEQ/L Chloride Level 105MEQ/L Carbon Dioxide Level 27MEQ/L Anion Gap 12MEQ/L Blood Urea Nitrogen 15.0MG/DL Creatinine 1.0MG/DL Glomerular Filtration Rate Calc 53 BUN/Creatinine Ratio 15RATIO Glucose Level 105MG/DL Calculated Osmolality 278MOSM/KG Calcium Level 9.7MG/DL Icterus Index < 2 Chemistry Specimen Hemolysis < 15 EKG SR Impression/Recommendation Problems: (1) Atrial fibrillation with rapid ventricular response Status: Acute Assessment & Plan: Recent onset, anticoagulated, INR 2.2. Start Amiodarone 150mg bolus followed by drip. Consent for DCCV to be done this afternoon. (2) History of arthroplasty of left knee Status: Acute Assessment & Plan: S/P knee replacement surgery (3) Coronary artery disease Status: Chronic Assessment & Plan: per H&P (4) Aortic valve insufficiency Status: Chronic Assessment & Plan: per H&P (5) Carotid artery stenosis Status: Chronic Assessment & Plan: per H&P (6) Hypertension Status: Chronic Assessment & Plan: per H&P Recommendation History of Paroxysmal A Fib per H&P. Recent onset A Fib RVR, anticoagulated, INR 2.2. Start Amiodarone 150mg bolus followed by drip. Consent for DCCV to be done this afternoon if doesn't convert spontaneously. Thank you for allowing us to participate in this patient's care. SAMUEL TRAN MD 09/13/16 1112: Past Medical History Current Medications Home Meds Active Scripts Polyethylene Glycol 3350 (Miralax) 17 Gm Powd.pack, 17 G PO DAILY Y for CONSTIPATION, #1 BOTTLE Take 17 Grams (1 capful), by mouth, once a day. Prov:BETTINA IYER 09/06/16 Docusate Sodium (Colace) 100 Mg Capsule, 1 CAP PO BID, #60 CAP Prov:BETTINA IYER 09/06/16 Oxycodone HCl (Oxycodone HCl) 5 Mg Tablet, 5-15 MG PO Q3H Y for BREAKTHROUGH PAIN, #60 TAB Prov:BETTINA IYER 09/06/16 Acetaminophen (Tylenol) 325 Mg Tablet, 650 MG PO QID, #60 TAB Prov:BETTINA IYER 09/06/16 Reported Medications Furosemide (Furosemide) 20 Mg Tablet, 1 TAB PO DAILY, TAB 08/30/16 Lisinopril (Lisinopril) 20 Mg Tablet, 20 MG PO AM&1330, TAB TAKES EVERY MORNING AND AT 1330 08/30/16 Vitamin E Acetate (Vitamin E) 1,000 Unit Capsule, 1 CAP PO DAILY 08/29/16 Cinnamon Bark (Cinnamon) 500 Mg Capsule, 1 CAP PO DAILY 08/29/16 Letrozole (Femara) 2.5 Mg Tablet, 1 TAB PO DAILY, TAB TAKES AT 1000AM DAILY 08/29/16 Lorazepam (Lorazepam) 0.5 Mg Tablet, 0.5 MG PO HS Y for SLEEP, TAB 08/29/16 Ascorbic Acid (Vitamin C) 1,000 Mg Tablet, 1 TAB PO DAILY 08/29/16 Multivits,Ca,Minerals/Iron/FA (Women's Daily Caplet) 1 Each Tablet, 1 TAB PO DAILY 08/29/16 Biotin (Biotin) 5,000 Mcg Tab.rapdis, 1 TAB PO DAILY 08/29/16 Cranberry Extract (Cranberry) 500 Mg Capsule, 1 CAP PO DAILY 08/29/16 Calcium Carbonate/Vitamin D3 (Caltrate 600 + D Tablet) 1 Each Tablet, 2 TAB PO BID 08/29/16 Allergies: Coded Allergies: No Known Allergies (Unverified , 09/05/16) Impression/Recommendation Recommendation After examining the patient I agree with the above assessment. I am involved in the formulation of the patient's plan of care. LILY PATTERSON APRN Sep 07, 2016 15:06 SAMUEL TRAN MD Sep 13, 2016 11:12
--- NOTE | 2016-09-07 15:30 | NUR ---
STATUS. ASSUMED CARE AT 1500. PT RESTING ON BED. TELEMETRY DESK CALLED TO REPORT CONVERTED TO SINUS RHYTHM AT 1511. EKG ORDERED BY UBALDO REAVES. PT HAS ICE PACK TO RT WRIST FOR IV INFILTRATE. PT IS NPO NOW. PT IS AWAKE AND ALERT. ASKING QUESTIONS.
[2016-09-07 15:31] LABS: MAGNESIUM 1.9 MG/DL (1.6-2.3)
[2016-09-07 16:03] LABS: THYROID STIM HORMONE-TSH 4.95 MIU/L (0.47-4.68)
--- NOTE | 2016-09-07 17:35 | HPPDOC ---
HPI Date DATE: 09/07/16 TIME: 17:28 General Chief Complaint: S/P left total knee arthroplasty History of Present Illness 81 yo female with post op pain and weakness. She had LTKA on 09/05 and was unable to control pain. Medication has helped, but she is unable to manage adl' s at this time due to pain and complications from CAD. Cardiology has been following while pt is inhospital. Pt also has chronic emphysema which is limiting ability to exercise. Past Medical History Past Medical History Coronary artery disease Aortic valve insufficiency Carotid artery stenosis Hypertension History of right-sided breast cancer-2009 Emphysema Neuropathy History of stomach ulcers Osteoarthritis Surgical History Patient's Surgical History: Tonsillectomy Right breast lumpectomy Right total hip arthroplasty Left knee arthroscopy-2015 Eye surgery Current Medications Home Meds Active Scripts Polyethylene Glycol 3350 (Miralax) 17 Gm Powd.pack, 17 G PO DAILY Y for CONSTIPATION, #1 BOTTLE Take 17 Grams (1 capful), by mouth, once a day. Prov:BETTINA IYER 09/06/16 Docusate Sodium (Colace) 100 Mg Capsule, 1 CAP PO BID, #60 CAP Prov:BETTINA IYER 09/06/16 Oxycodone HCl (Oxycodone HCl) 5 Mg Tablet, 5-15 MG PO Q3H Y for BREAKTHROUGH PAIN, #60 TAB Prov:BETTINA IYER 09/06/16 Acetaminophen (Tylenol) 325 Mg Tablet, 650 MG PO QID, #60 TAB Prov:BETTINA IYER 09/06/16 Reported Medications Furosemide (Furosemide) 20 Mg Tablet, 1 TAB PO DAILY, TAB 08/30/16 Lisinopril (Lisinopril) 20 Mg Tablet, 20 MG PO AM&1330, TAB TAKES EVERY MORNING AND AT 1330 08/30/16 Vitamin E Acetate (Vitamin E) 1,000 Unit Capsule, 1 CAP PO DAILY 08/29/16 Cinnamon Bark (Cinnamon) 500 Mg Capsule, 1 CAP PO DAILY 08/29/16 Letrozole (Femara) 2.5 Mg Tablet, 1 TAB PO DAILY, TAB TAKES AT 1000AM DAILY 08/29/16 Lorazepam (Lorazepam) 0.5 Mg Tablet, 0.5 MG PO HS Y for SLEEP, TAB 08/29/16 Ascorbic Acid (Vitamin C) 1,000 Mg Tablet, 1 TAB PO DAILY 08/29/16 Multivits,Ca,Minerals/Iron/FA (Women's Daily Caplet) 1 Each Tablet, 1 TAB PO DAILY 08/29/16 Biotin (Biotin) 5,000 Mcg Tab.rapdis, 1 TAB PO DAILY 08/29/16 Cranberry Extract (Cranberry) 500 Mg Capsule, 1 CAP PO DAILY 08/29/16 Calcium Carbonate/Vitamin D3 (Caltrate 600 + D Tablet) 1 Each Tablet, 2 TAB PO BID 08/29/16 Allergies: Coded Allergies: No Known Allergies (Unverified , 09/05/16) Family History Family History: Mother- DM, HTN Sister- Breast cancer Social History Smoking Status: Current every day smoker Does patient use chewing tobac: No # of Packs/Tins per Day: 1 # of Years: 40 Second Hand Exposure: No Substance Use Type: does not use Advance Directives: Yes DPOA for Healthcare Only, Yes Full Code Review of Systems Cardiovascular see HPI Pulmonary Respiratory: see HPI Musculoskeletal General: see HPI All Other Systems All Other Systems: Reviewed Physical Exam General General Nourishment: thin, adult General Body Habitus: well groomed Vital Signs Vital Signs Date Time Temp Pulse Resp B/P Pulse Ox O2 Delivery O2 Flow Rate FiO2 09/07/16 17:14 78 18 113/54 98 Nasal Cannula 3.00 09/07/16 15:57 97.0 Height (Feet): 5 Height (Inches): 4.00 Eyes Brief: FOUND: EOMI, PERRL ENMT Brief: FOUND: TM clear, TM good light reflex Neck Brief: NOT FOUND: adenopathy, thyromegaly Comments mild crackles bilat. Abdomen (brief) Abdominal Brief: FOUND: BS normo active x4, soft, tender Musculoskeletal (brief) Comments pain at surgical site left knee. Integumentary (brief) Comments skin dry and appropriate at surgical site. Neurologic (brief) Neurological Brief: FOUND: cranial 2-12 intact, motor, sensory Neurologic RN Documented GCS Eye Opening: Verbal: Motor: Total: Laboratory Laboratory Tests Test 09/07/16 04:37 09/07/16 14:47 White Blood Count 9.8T/MM3 Red Blood Count 3.55M/MM3 Hemoglobin 10.8GM/DL Hematocrit 33.3% Mean Corpuscular Volume 93.8UM3 Mean Corpuscular Hemoglobin 30.4UUG Mean Corpuscular Hemoglobin Concent 32.4GM/DL RDW Standard Deviation 44.0FL Platelet Count 225T/MM3 Mean Platelet Volume 9.6UM3 Immature Granulocyte % (Auto) 0.1% Neutrophils (%) (Auto) 69.1% Lymphocytes (%) (Auto) 20.3% Monocytes (%) (Auto) 9.5% Eosinophils (%) (Auto) 0.5% Basophils (%) (Auto) 0.5% Absolute Immature Granulocyte (auto 0.01T/MM3 Absolute Neutrophils (auto) 6.8T/MM3 Absolute Lymphocytes (auto) 2.0T/MM3 Absolute Monocytes (auto) 0.9T/MM3 Absolute Eosinophils (auto) 0.1T/MM3 Absolute Basophils (auto) 0.1T/MM3 Prothromb Time International Ratio 2.22 Turbidity < 20 Sodium Level 144MEQ/L Potassium Level 4.0MEQ/L Chloride Level 105MEQ/L Carbon Dioxide Level 27MEQ/L Anion Gap 12MEQ/L Blood Urea Nitrogen 15.0MG/DL Creatinine 1.0MG/DL Glomerular Filtration Rate Calc 53 BUN/Creatinine Ratio 15RATIO Glucose Level 105MG/DL Calculated Osmolality 278MOSM/KG Calcium Level 9.7MG/DL Icterus Index < 2 Chemistry Specimen Hemolysis < 15 < 15 Magnesium Level 1.9MG/DL Troponin I 0.046ng/ml Thyroid Stimulating Hormone (TSH) 4.95MIU/L Assessment & Plan Problems: (1) Myopathy Assessment & Plan: pt has progressive weakness of left leg prior to surgery due to pain, and has had similar progression since surgery due to immobility. PT and OT to work with her to increase function and strength. (2) Atrial fibrillation with rapid ventricular response Status: Acute Assessment & Plan: medical to manage (3) Gait instability Status: Acute Assessment & Plan: PT and OT to work with pt to increase stability (4) History of arthroplasty of left knee Status: Acute Assessment & Plan: Surgical recovery with PT and OT involvement will speed improvement (5) Anemia following surgery (6) Idiopathic progressive neuropathy Assessment & Plan: PT and OT to work on exercises and methods to control neuropathy pain. DVT Prophylaxis: SCD'S Code Status Full Code Interventions to Obtain Goals PT Treatment Plan: Therapeutic Exercise, Gait Training, Functional Activities , Patient/Family Education OT Treatment Plan: ADL's (basic care), Ther. Exercise for ADL's, UE Functional Training, Balance Training, Pt./Family Education, IADL's Hospital Course Summary Disclaimer The hospital course summary below is not to be considered part of the above Progress Note. TIM ALBERTO MD Sep 07, 2016 17:31
--- NOTE | 2016-09-07 17:37 | IRU24PDOC ---
24 Hour Post Admission Eval Relevant Changes Relevant Changes: No I have reviewed the patient's information and concur with the finding and results of the pre-admission screen. Certification I certify the patient for rehabilitation. Patient Condition Prior Medical Conditions: (1) Myopathy Additional Information: pt has progressive weakness of left leg prior to surgery due to pain, and has had similar progression since surgery due to immobility. PT and OT to work with her to increase function and strength. (2) Atrial fibrillation with rapid ventricular response Status: Acute Additional Information: medical to manage (3) Gait instability Status: Acute Additional Information: PT and OT to work with pt to increase stability (4) History of arthroplasty of left knee Status: Acute Additional Information: Surgical recovery with PT and OT involvement will speed improvement (5) Anemia following surgery (6) Idiopathic progressive neuropathy Additional Information: PT and OT to work on exercises and methods to control neuropathy pain. Current Medical Conditions: (1) Myopathy Additional Information: pt has progressive weakness of left leg prior to surgery due to pain, and has had similar progression since surgery due to immobility. PT and OT to work with her to increase function and strength. (2) Atrial fibrillation with rapid ventricular response Status: Acute Additional Information: medical to manage (3) Gait instability Status: Acute Additional Information: PT and OT to work with pt to increase stability (4) History of arthroplasty of left knee Status: Acute Additional Information: Surgical recovery with PT and OT involvement will speed improvement (5) Anemia following surgery (6) Idiopathic progressive neuropathy Additional Information: PT and OT to work on exercises and methods to control neuropathy pain. Prior Functional Condition Lives With: Alone Residence Type: Private home/apartment Assistive Devices: Front Wheeled Walker, Straight Cane Prior Functional Status: Indep. at home or school Current Functional Status Patient Requirements * Patient has been determined to have significant functional limitations requiring at least two therapy disciplines. * Rehabilitation medical practitioner will provide admission approval, assessment and oversight and program coordination at least daily. * Intensive rehabilitative nursing services on site and available 24 hours a day. * The treatment plan will be developed within 24 hours of admission. * Interdisciplinary and goal oriented treatment by professional nursing, social work nurse, and rehabilitation therapist. * Interdisciplinary team meeting weekly inclusive of ongoing comprehensive discharge planning. First team meeting by day seven. Weekly meetings to follow. * Rehab Physician is the team meeting leader. * Pharmacy and diagnostic services will be available. * Ongoing comprehensive rehab program with at least 2 disciplines and greater than or equal to 3 hours a day, 5 days a week. Physical Therapy Minutes: 90 Occupational Therapy Minutes: 90 Therapy The patient is to receive therapy at least 5 days a week. Current Functional Status: Using assistive device PT Treatment Plan: Therapeutic Exercise, Gait Training, Functional Activities , Patient/Family Education Treatment Plan Frequency: five times per week Treatment Plan Duration: three weeks Plan of Care Comment: 6x/week x 1 week, then 5x/week x 2 weeks OT Treatment Plan: ADL's (basic care), Ther. Exercise for ADL's, UE Functional Training, Balance Training, Pt./Family Education, IADL's OT Treatment Plan Frequency: five times per week OT Treatment Plan Duration: three weeks ROM Deficit: Left Lower Extremity ROM Comment: AROM limited left knee post operatively approximately 0-10-70. Right knee WFL Bilat hips and ankles WFL Muscle Weakness Location: Left Lower Extremity Complication/Comorbidities Patient Complication Risk: (1) Myopathy Comments: pt has progressive weakness of left leg prior to surgery due to pain , and has had similar progression since surgery due to immobility. PT and OT to work with her to increase function and strength. (2) Atrial fibrillation with rapid ventricular response Status: Acute Comments: medical to manage (3) Gait instability Status: Acute Comments: PT and OT to work with pt to increase stability (4) History of arthroplasty of left knee Status: Acute Comments: Surgical recovery with PT and OT involvement will speed improvement (5) Anemia following surgery (6) Idiopathic progressive neuropathy Comments: PT and OT to work on exercises and methods to control neuropathy pain. Impact on Functional Outcomes Post op care with PT and OT should improve overall outcome. Barriers to Discharge: weakness, endurance, balance, pain control Plan to Avoid Complications Plan to Avoid Complications The patient cannot receive this care in a lesser intensive setting such as Senior Living or Outpatient Therapy due to the patient requiring the following CAD and Emphysema The patient requires oversight by a rehabilitation physician to manage their rehabilitation treatment plan and the multidisciplinary approach to care that can only be provided in an IRF and requires a multidisciplinary approach to care , provided by professional PTs, OTs, STs, dieticians, RTs, rehabilitation nurses and is not available in lesser levels of care. The frequency and duration for therapy, as recommended by the professional Rehabilitation therapists, meet the patient's initial rehabilitation treatment plan needs and will be further evaluated on a weekly basis for progress and/or changes needed. TIM ALBERTO MD Sep 07, 2016 17:37
[2016-09-07] MEDS: AMIODARONE 200 MG TABLET PO SCH ×2 (19:16→21:00)
--- NOTE | 2016-09-07 20:00 | NUR ---
STATUS. PT SEEN BY DR TRAN AT 1640. AMIODARONE ORDER CHANGED TO PO INSTEAD OF IV DRIP. PT RECEIVED FIRST DOSE AT 1910. PT ALERT AND OX3. FAMIY VISITED AT DINNER. PT TO DINING ROOM VIA WC. O2 3L/NC AT 98-100%. DECREASED TO 2L/NC. WILL REPORT TO NIGHT NURSE.
[2016-09-08] VITALS: BP 127/60; PULSE 85; RESP 20; TEMP 97.7; O2SAT 100
[2016-09-08] MEDS: OXYCODONE I.R. 5 MG TABLET PO PRN ×3 (02:33→17:56)
--- NOTE | 2016-09-08 04:00 | NUR ---
24 hr. chart check done.
[2016-09-08 05:26] LABS: INR 2.48 (0.76-1.04)
[2016-09-08 06:05] VITALS: BP 125/60; PULSE 93; RESP 24; TEMP 98
--- NOTE | 2016-09-08 06:37 | NUR ---
END OF SHIFT Assessment: Alert and orientated. Telemetry demonstrates Sinus [place]. Heartrate 80's. Denies palpations, discomfort and pain in chest area. No lightheadedness; nor, c/o of feeling dizzy with transfers or walking. O2 titrated gradually titrated. O2 sats 99% with O2 @ 0.5/ L; so, oxygen removed. Air movement through out lung wooten are clear. Apical heartrate slightly irregular. Ambulates to bathroom this shift with use of walker and assistance of one. Has difficulty moving L leg off bed to sit at side of bed. Then, has difficulty coordinating walker with walking and sitting down. Does have pain and anxiety with any movement of leg. Metaplex dressing dry and intact to left knee; no shadow of drainage seen. Polar pack utilized while pt.sits in chair or rests in bed. ROXICODONE 10 mg. given PO twice during the night. Roxicodone 15 mg. given PO at 7AM this morning.(prior to Therapy). LORAZEPAM 0.5 mg. given once during the night for anxiety and restlessness, which was effective because pt. was able to sleep soundly for a few hours after medication given. TROPONIN of 0.[address] Villagomez this morning.
[2016-09-08 08:00] VITALS: BP 156/64; PULSE 100; RESP 20; TEMP 97.6; O2SAT 93
[2016-09-08 08:30] LABS: ANION GAP 9 MEQ/L (5-15); BUN/CREATININE RATIO 19 RATIO (6-26); CALCIUM 9.6 MG/DL (8.4-10.2); CHLORIDE 101 MEQ/L (98-107); CO2 - CARBON DIOXIDE 32 MEQ/L (22-30); CREATININE 1.1 MG/DL (0.7-1.2); GLOMERULAR FILTRATION RATE 48; GLUCOSE 105 MG/DL (65-110); POTASSIUM 3.9 MEQ/L (3.6-5); SODIUM 142 MEQ/L (134-144)
[2016-09-08] MEDS: AMIODARONE 200 MG TABLET PO SCH ×2 (08:47→20:31)
[2016-09-08] MEDS: LISINOPRIL 20 MG TABLET PO SCH ×2 (08:47→20:31)
[2016-09-08] MEDS: DOCUSATE SODIUM 100 MG CAPSULE PO SCH ×2 (08:47→20:30)
[2016-09-08] MEDS: LETROZOLE 2.5 MG TABLET PO SCH (08:47)
[2016-09-08] MEDS: CALCIUM 600mg + VIT D 400 TABLET PO SCH ×2 (08:47→20:30)
[2016-09-08] MEDS: VITAMIN E 1,000 UNIT CAPSULE PO SCH (08:48)
[2016-09-08] MEDS: FUROSEMIDE 20 MG TABLET PO SCH (08:48)
[2016-09-08] MEDS: ACETAMINOPHEN 325 MG TABLET PO SCH ×4 (08:50→22:14)
--- NOTE | 2016-09-08 09:32 | NUR ---
COUMADIN CONSULT (Recurring): Today's INR = 2.48. Will give Warfarin 2mg today. Dc'd enoxaparin. Will continue to monitor & make adjustments accordingly. Thank you.
--- NOTE | 2016-09-08 10:00 | NUR ---
Troponin Lab called and notified this RN of troponin level of 0.130. Please see labs. Notified KELSI Landeros. Pt. has denied chest pain. Will continue to monitor.
--- NOTE | 2016-09-08 11:25 | PNPDOC ---
LILY PATTERSON GEAR CHANGER 09/08/16 1124: Subjective Date DATE: 09/08/16 TIME: 11:21 Subjective Consuelo is sitting up in the recliner. She denies chest pressure or palpitations today. She denies dyspnea or dizziness. Objective Vital Signs Vital signs Vital Signs 09/08/16 09/08/16 09/08/16 09/08/16 00:00 06:05 08:00 08:00 Temp 97.7 98.0 97.6 Pulse 85 93 100 100 Resp 20 24 20 20 B/P 127/60 125/60 156/64 Pulse Ox 100 93 O2 Delivery Nasal Cannula Nasal Cannula Room Air O2 Flow Rate 1.50 1.00 Telemetry Rhythm: Atrial Fibrillation Height (Feet): 5 Height (Inches): 4.00 Weight (Kilograms): 58.500 General Alert, Orientated x 3, Cooperative ENMT (Brief) mucosa moist Neck (Brief) midline, NOT FOUND: JVD Respiratory (Brief) clear all wooten, equal bilaterally, NOT FOUND: rales, wheezes Cardiovascular (Brief) pedal edema (trace), regular rate, regular rhythm, NOT FOUND: click, gallop, murmur, rub Abdomen (Brief) BS normo active x4, soft, NOT FOUND: tender Integumentary (Brief) dry, pink, warm Psychiatric (Brief) alert, oriented Laboratory Laboratory Laboratory Tests Test 09/07/16 04:37 09/07/16 14:47 09/07/16 19:54 09/08/16 04:25 White Blood Count 9.8T/MM3 Red Blood Count 3.55M/MM3 Hemoglobin 10.8GM/DL Hematocrit 33.3% Mean Corpuscular Volume 93.8UM3 Mean Corpuscular Hemoglobin 30.4UUG Mean Corpuscular Hemoglobin Concent 32.4GM/DL RDW Standard Deviation 44.0FL Platelet Count 225T/MM3 Mean Platelet Volume 9.6UM3 Immature Granulocyte % (Auto) 0.1% Neutrophils (%) (Auto) 69.1% Lymphocytes (%) (Auto) 20.3% Monocytes (%) (Auto) 9.5% Eosinophils (%) (Auto) 0.5% Basophils (%) (Auto) 0.5% Absolute Immature Granulocyte (auto 0.01T/MM3 Absolute Neutrophils (auto) 6.8T/MM3 Absolute Lymphocytes (auto) 2.0T/MM3 Absolute Monocytes (auto) 0.9T/MM3 Absolute Eosinophils (auto) 0.1T/MM3 Absolute Basophils (auto) 0.1T/MM3 Prothromb Time International Ratio 2.22 2.48 Turbidity < 20 < 20 Sodium Level 144MEQ/L 142MEQ/L Potassium Level 4.0MEQ/L 3.9MEQ/L Chloride Level 105MEQ/L 101MEQ/L Carbon Dioxide Level 27MEQ/L 32MEQ/L Anion Gap 12MEQ/L 9MEQ/L Blood Urea Nitrogen 15.0MG/DL 21.0MG/DL Creatinine 1.0MG/DL 1.1MG/DL Glomerular Filtration Rate Calc 53 48 BUN/Creatinine Ratio 15RATIO 19RATIO Glucose Level 105MG/DL 105MG/DL Calculated Osmolality 278MOSM/KG 276MOSM/KG Calcium Level 9.7MG/DL 9.6MG/DL Icterus Index < 2 < 2 Chemistry Specimen Hemolysis < 15 < 15 < 15 < 15 Magnesium Level 1.9MG/DL Troponin I 0.046ng/ml 0.135ng/ml 0.130ng/ml Thyroid Stimulating Hormone (TSH) 4.95MIU/L Laboratory Tests 09/08/16 04:25 Medications Current Medications Acetaminophen (Tylenol Regular Strength) 650 mg QID PO Last administered on 08:50; Start 09/06/16 at 21:00 Calcium/Vitamin D (Caltrate + D) 2 tab BID PO Last administered on 09/08/16 08 :47; Start 09/06/16 at 21:00 Furosemide (Lasix) 20 mg DAILY PO Last administered on 09/08/16 08:48; Start 09/07/16 at 09:00 Letrozole (Femara) 2.5 mg DAILY PO Last administered on 09/08/16 08:47; Start 09/07/16 at 09:00 Lisinopril (Prinivil) 20 mg BID PO Last administered on 09/08/16 08:47; Start 09/06/16 at 21:00 Lorazepam (Ativan) 0.5 mg HS PRN PO SLEEP Last administered on 09/08/16 02:59 ; Start 09/06/16 at 20:30 Oxycodone HCl (Roxicodone) 1-3 Q3H PRN PO BREAKTHROUGH PAIN Last administered on 09/08/16 07:06; Start 09/06/16 at 20:30 Polyethylene Glycol (Miralax) 17 g DAILY PRN PO CONSTIPATION; Start 09/06/16 at 20:30 Vitamin E (Vitamin E 1,000 Units) 1,000 unit DAILY PO Last administered on 09/08 08:48; Start 09/07/16 at 09:00 Enoxaparin Sodium (Lovenox) 40 mg DAILY SQ Last administered on 09/07/16 09:42 ; Start 09/07/16 at 09:00; Stop 09/08/16 at 09:25; Status DC Docusate Sodium (Colace) 100 mg BID PO Last administered on 09/08/16 08:47; Start 09/07/16 at 09:00 Warfarin Sodium (Coumadin Protocol) NOTE [facility] ; Start 09/07/16 at 06:30 Diltiazem HCl (Cardizem) 10 mg O ONCE IV Last administered on 09/07/16 14:30 ; Start 09/07/16 at 14:30; Stop 09/07/16 at 14:37; Status DC Metoprolol Tartrate 5 mg 5 mg O ONCE IV Last administered on 09/07/16 14:45; Start 09/07/16 at 14:45; Stop 09/07/16 at 14:46; Status DC Amiodarone HCl 150 mg/Sodium Chloride 103 ml @ 600 mls/hr NOW ONCE IV ; Start 09/07/16 at 15:00; Stop 09/07/16 at 19:12; Status DC Amiodarone HCl 900 mg/Sodium Chloride 518 ml @ 33.33 mls/ hr [id number] IV ; Start 09/07/16 at 15:00; Stop 09/07/16 at 18:53; Status DC Amiodarone HCl/ Sodium Chloride (Cordarone/NS) 518 ml @ 16.67 mls/ hr Q24H IV ; Start 09/07/16 at 21:00; Stop 09/07/16 at 21:00; Status DC Amiodarone HCl (Pacerone) 200 mg DAILY PO ; Start 09/14/16 at 09:00 Warfarin Sodium (COUMADIN 2 mg) 2 mg NOON PO ; Start 09/08/16 at 12:00; Stop at 12:15 Assessment & Plan Problems: (1) Atrial fibrillation with rapid ventricular response Status: Acute Assessment & Plan: Continue Amiodarone 400mg BID X7 days then 200mg daily (2) History of arthroplasty of left knee Status: Acute Assessment & Plan: S/P knee replacement surgery (3) Coronary artery disease Status: Chronic Assessment & Plan: per H&P (4) Aortic valve insufficiency Status: Chronic Assessment & Plan: per H&P (5) Carotid artery stenosis Status: Chronic Assessment & Plan: per H&P (6) Hypertension Status: Chronic Assessment & Plan: per H&P Plan/Intensity of Service 09/07/16 History of Paroxysmal A Fib per H&P. Recent onset A Fib RVR, anticoagulated, INR 2.2. Start Amiodarone 150mg bolus followed by drip. Consent for DCCV to be done this afternoon if doesn't convert spontaneously. 09/08/16 Continue Amiodarone 400mg BID X7 days then 200mg daily Thank you for allowing us to participate in this patient's care. SAMUEL TRAN MD 09/13/16 1116: Assessment & Plan Plan/Intensity of Service After examining the patient I agree with the above assessment. I am involved in the formulation of the patient's plan of care. LILY PATTERSON APRN Sep 08, 2016 11:24 SAMUEL TRAN MD Sep 13, 2016 11:16
[2016-09-08] MEDS ORDERED: WARFARIN 2 MG TABLET PO SCH (12:00)
--- NOTE | 2016-09-08 12:48 | PDIRUTEAM ---
Multidisciplinary Team Meeting Nursing Hx Incontinence: No Bladder Goal: 7+ Complete [place] Starr Y/N: No Bladder Continent or Incontine: Continent Incontinent Product Used: Patient's Own Underwear Number of Times Incontinent of: 0 Cleaning Ability-Bladder: 5 Supervision/Setup Bladder Incontinence Managemen: 0 Activity Does Not Occur Bowel Goal: 7+ Complete [place] Colostomy Y/N: No Bowel Incontinent/Continent: Continent Cleaning Ability-Bowel: 0 Activity Does Not Occur Colostomy Care: 0 Activity Does Not Occur Bowel Incontinence Management: 0 Activity Does Not Occur Toileting Ability: 4 Minimal Assistance Vital Signs Vital Signs Date Time Temp Pulse Resp B/P Pulse Ox O2 Delivery O2 Flow Rate FiO2 09/08/16 08:00 100 20 09/08/16 08:00 97.6 156/64 93 Room Air 09/08/16 06:05 1.00 Current Medications Current Medications Medications (Trade) Dose Ordered Sig/Yoly Route PRN Reason Start Time Stop Time Status Last Admin Dose Admin Acetaminophen (Tylenol Regular Strength) 650 mg QID PO 09/06/16 21:00 09/08/16 12:25 Calcium/Vitamin D (Caltrate + D) 2 tab BID PO 09/06/16 21:00 09/08/16 08:47 Furosemide (Lasix) 20 mg DAILY PO 09/07/16 09:00 09/08/16 08:48 Letrozole (Femara) 2.5 mg DAILY PO 09/07/16 09:00 09/08/16 08:47 Lisinopril (Prinivil) 20 mg BID PO 09/06/16 21:00 09/08/16 08:47 Lorazepam (Ativan) 0.5 mg HS PRN PO SLEEP 09/06/16 20:30 09/08/16 02:59 Oxycodone HCl (Roxicodone) 1-3 Q3H PRN PO BREAKTHROUGH PAIN 09/06/16 20:30 09/08/16 07:06 Vitamin E (Vitamin E 1,000 Units) 1,000 unit DAILY PO 09/07/16 09:00 09/08/16 08:48 Enoxaparin Sodium (Lovenox) 40 mg DAILY SQ 09/07/16 09:00 09/08/16 09:25 DC 09/07/16 09:42 Docusate Sodium (Colace) 100 mg BID PO 09/07/16 09:00 09/08/16 08:47 Amiodarone HCl (Pacerone) 400 mg BID PO 09/07/16 18:30 09/13/16 21:00 09/08/16 08:47 Warfarin Sodium (COUMADIN 2 mg) 2 mg NOON PO 09/08/16 12:00 09/08/16 12:15 DC 09/08/16 12:25 Comments new onset afib yesterday during exercise. Went into RVR. She converted after cardizem given. Physical Therapy Bed Transfer Ability: 4 Minimal Assistance Bed Transfer Assistance Needed: 1 Person Bed FIM Score Reason: requires assist for LEs into and out of bed Chair Transfer Ability: 4 Minimal Assistance Chair Transfer Assistance Need: 1 Person Chair FIM Score Reason: CGA and verbal cues for safety Overall Wheelchair Transfer Ab: 4 Minimal Assistance Wheelchair Transfer Assistance: 1 Person Overall Toilet / Commode Trans: 4 Minimal Assistance Ambulation Ability: 2 Maximum Assistance Ambulation Assistance Needed: 1 Person Walk FIM Score Reason: Pt requires SBA but is limited to < 150 ft. Ambulation Distance: 59 Comments FIMS low, 1-4 Poor safety awareness. Occupational Therapy Grooming Ability: 5 Supervision/Setup Bathing Ability: 5 Supervision/Setup Upper Body Dressing Ability: 5 Supervision/Setup Lower Body Dressing Ability: 3 Moderate Assistance Lower Body Dressing Assistance: 1 Person Toileting Assistance Needed: 1 Person Toileting FIM Score Reason: pt demonstrates taking down and pulling up pants with 1 hand on FWW or grab bar at all times 5/7 assist. Comments FIMS 3-5. Slow progression partly due to knee pain. Care Plan Condition at time of discharge: Fair IRU Discharge Disposition: Home, self care Interventions/Goals Plan is to go home. Barriers to d/c: rom. pain , safety, activity tolerance. TIM ALBERTO MD Sep 08, 2016 12:48
--- NOTE | 2016-09-08 13:40 | PNPDOC ---
Subjective Date DATE: 09/08/16 TIME: 13:36 Humberto Cordero is seen today in follow up this morning. She is up and ambulated to the bathroom this morning. She states that her left knee is somewhat sore and stiff , however, overall she is feeling better than yesterday. No further episodes of dizziness, palpitations, chest pain or shortness of breath. Telemetry reviewed as patient has remained in sinus rhythm. Objective Vital Signs Vital signs Vital Signs Date Time Temp Pulse Resp B/P Pulse Ox O2 Delivery O2 Flow Rate FiO2 09/08/16 08:00 100 20 09/08/16 08:00 97.6 156/64 93 Room Air 09/08/16 06:05 1.00 Telemetry Rhythm: Atrial Fibrillation Height (Feet): 5 Height (Inches): 4.00 Weight (Kilograms): 58.500 General General Appearance: Alert, Orientated x 3, Cooperative, No Acute Distress Eyes (Brief) Eyes: FOUND: EOMI ENMT (Brief) ENMT: FOUND: mucosa moist, normal dentition, NOT FOUND: pharnyx erythema Neck (Brief) Neck: FOUND: midline, NOT FOUND: adenopathy, carotid bruits, tracheal deviation Respiratory (Brief) Respiratory: FOUND: clear all wooten, equal bilaterally, NOT FOUND: wheezes Cardiovascular (Brief) Cardiac: FOUND: regular rate, regular rhythm, NOT FOUND: murmur, pedal edema Capillary Refill: <2 sec Abdomen (Brief) Abdominal: FOUND: BS normo active x4, soft, NOT FOUND: distended, tender Lymphatic (Brief) Lymphatic: NOT FOUND: adenopathy Musculoskeletal (Brief) Musculoskeletal: FOUND: tenderness (left knee pain) Integumentary (Brief) Integumentary: FOUND: dry, pink, warm Neurologic (Brief) Neurological: FOUND: cranial 2-12 intact Psychiatric (Brief) Psychiatric: FOUND: alert, attentive, normal affect, oriented Laboratory Laboratory Laboratory Tests 09/07/16 04:37 09/08/16 04:25 Laboratory Tests 09/07/16 04:37 Assessment & Plan Problems: (1) History of arthroplasty of left knee Status: Acute (2) Anemia following surgery (3) Atrial fibrillation with rapid ventricular response Status: Resolved (4) Anxiety Status: Chronic (5) Hypertension Status: Chronic (6) Coronary artery disease Status: Chronic (7) Aortic valve insufficiency Status: Chronic (8) Gait instability Status: Acute (9) Idiopathic progressive neuropathy (10) Aortic insufficiency (11) Carotid artery stenosis Status: Chronic (12) History of breast cancer Status: Chronic (13) Degenerative arthritis of left knee Status: Chronic Plan/Intensity of Service 09/08/16 Continue on amiodarone 400 milligrams twice a day 7 days, end date 09/15. Then change to 200 milligrams daily Serial troponins trending down. Likely increase related to spontaneous A-fib with RVR. Continue with anticoagulation. Coumadin dosing being managed by pharmacy. INR today 2.48 Work on weaning down on oxygen as able. Recheck CBC on 09/11 to follow postoperative anemia. Continue to encourage work with PT and OT for ongoing postoperative strengthening and improve function. Code Status Full Code Hospital Course Summary Disclaimer The hospital course summary below is not to be considered part of the above Progress Note. Hospital Course Summary 09/08/16 Continue on amiodarone 400 milligrams twice a day 7 days, end date 09/15. Then change to 200 milligrams daily Serial troponins trending down. Likely increase related to spontaneous A-fib with RVR. Continue with anticoagulation. Coumadin dosing being managed by pharmacy. INR today 2.48 Work on weaning down on oxygen as able. Recheck CBC on 09/11 to follow postoperative anemia. Continue to encourage work with PT and OT for ongoing postoperative strengthening and improve function. UBALDO POPE APRN Sep 08, 2016 13:40
[2016-09-08 15:49] VITALS: BP 147/61; PULSE 91; RESP 16; TEMP 98.1; O2SAT 95
--- NOTE | 2016-09-08 19:56 | NUR ---
Summary VS's stable. Pt. has done well on RA all day and has denied SOA. She is a transfer x1 with walker and gait belt. I/O adequate. Pt. reports last bM was yesterday. Pt. takes meds whole. Pt. has reported left knee pain an 5-6/10 with activity and reports 1/10 pain with no activity. Pt. does groan and grimace at times with activity. Scheduled Tylenol and PRN Florence administered this shift per orders. Please see eMAR. Polar pack implemented. Mepilex dressing to left knee noted to be C/D/I. Bilateral pedal pulses palpable. Report has been past on to senior systems engineer.
[2016-09-08 20:37] VITALS: BP 126/58
[2016-09-09] VITALS (16 sets, daily range): BP systolic 118–145; BP diastolic 40–68; PULSE 76–151; RESP 16–20; TEMP 98.1–98.2; O2SAT 97–100
[2016-09-09] MEDS: OXYCODONE I.R. 5 MG TABLET PO PRN (03:29)
[2016-09-09 04:38] LABS: BLOOD, URINE NEGATIVE (NEGATIVE); COLOR,URINE YELLOW (YELLOW); LEUKOCYTE ESTERASE ,URINE TRACE (NEGATIVE); NITRITE,URINE NEGATIVE (NEGATIVE); UROBILINOGEN,URINE 0.2 EU/DL (NORMAL)
--- NOTE | 2016-09-09 05:30 | NUR ---
Chart Check 24 hour chart check completed
[2016-09-09 05:32] LABS: INR 2.89 (0.76-1.04); PROTHROMBIN TIME 31.5 SEC (9.31-12.49)
--- NOTE | 2016-09-09 06:08 | NUR ---
Summary Pt complaint of pain with ambulation. Pain managed with Polar Napoleon and PRN Roxicodone and repositioning to chair. SCDs maintained through the night. Pt able to state the current month but not the day. Pt was surprised when this nurse told her she had been here 3 days. Pt stated "I thought it was longer than that". Pt is in her recliner sleeping at this time, call light in reach Addendum: 09/09/16 at 0613 by MARIE LLANOS RN Pt complaint of burning on urination. UA to lab
--- NOTE | 2016-09-09 07:24 | NUR ---
COUMADIN CONSULT (Recurring): Today's INR = 2.89. Will not give Warfarin today. Will continue to monitor & make adjustments accordingly. Thank you.
--- NOTE | 2016-09-09 08:10 | NUR ---
HR/Tele Tele called and informed RN that pt.'s HR was up in the 190's. Went in to see pt. and pt. was sitting in wheelchair at the sink with therapy. Therapy reports they just finished a shower. Pt. appears restless, reports she is SOA and requests to get back to bed. Pt. assisted back to bed. Pt. placed on 2L O2 via nasal canula. She denies chest pain, or palpitations. Other VS's stable. Please see VS's. Leti Mcmahan APRN notified. Will continue to monitor. Addendum: 09/09/16 at 1359 by KRYS KIM RN Tele reports pt. is back in A-fib.
[2016-09-09] MEDS: AMIODARONE 200 MG TABLET PO SCH ×2 (08:20→21:04)
--- NOTE | 2016-09-09 08:30 | NUR ---
HR Leti Mcmahan, TIME CLOCK INSPECTOR, here to see pt. She reports to given pt.'s morning dose of Amiodarone now. Please see eMAR. She also reports she will talk with cardiology. Will continue to monitor.
[2016-09-09] MEDS ORDERED: DILTIAZEM 25mg/5ml INJECTION IV ONE (08:45)
[2016-09-09] MEDS ORDERED: AMIODARONE 150 MG in NORMAL SALINE 100 ML IV ONE (09:00)
--- NOTE | 2016-09-09 09:30 | NUR ---
HR Amiodarone IV push and Amiodarone IV bolus ordered by Leti Mcmahan APRN. Doses are administered. Please see eMAR. Pt.'s HR continues to be tachycardic in the 140's-150's. Peggy, Marine Farmer, here to help monitor pt. during IV Amiodarone bolus. Pt. continues to deny chest pain/palpitations. Will continue to monitor.
--- NOTE | 2016-09-09 09:43 | PNPDOC ---
Subjective Date DATE: 09/09/16 TIME: 09:33 Humberto Cordero is seen this morning following a phone call from nursing staff reporting elevated heart rate 180-200. Telemetry revels A-fib with RVR. Really go into atrial fibrillation RVR 09/07/16, however, spontaneously converted to sinus rhythm. She had been on oral amiodarone. Since that time. This when she was in the shower and went back into atrial fibrillation RVR. She complains of feeling mildly short of breath. However, no chest pain, dizziness or palpitations. She intermittently has been on 1 liter of oxygen by nasal cannula. BP stable. Objective Vital Signs Vital signs Vital Signs Date Time Temp Pulse Resp B/P Pulse Ox O2 Delivery O2 Flow Rate FiO2 09/08/16 22:24 Room Air 1.00 09/08/16 20:37 126/58 09/08/16 15:49 98.1 91 16 95 Telemetry Rhythm: Atrial Fibrillation Height (Feet): 5 Height (Inches): 4.00 Weight (Kilograms): 58.500 General General Appearance: Alert, Orientated x 3, Cooperative, No Acute Distress Eyes (Brief) Eyes: FOUND: EOMI ENMT (Brief) ENMT: FOUND: mucosa moist, normal dentition, NOT FOUND: pharnyx erythema Neck (Brief) Neck: FOUND: midline, NOT FOUND: adenopathy, carotid bruits, tracheal deviation Respiratory (Brief) Respiratory: FOUND: clear all wooten, equal bilaterally, NOT FOUND: wheezes Cardiovascular (Brief) Cardiac: FOUND: regular rate, regular rhythm, NOT FOUND: murmur, pedal edema Capillary Refill: <2 sec Abdomen (Brief) Abdominal: FOUND: BS normo active x4, soft, NOT FOUND: distended, tender Lymphatic (Brief) Lymphatic: NOT FOUND: adenopathy Musculoskeletal (Brief) Musculoskeletal: NOT FOUND: tenderness Integumentary (Brief) Integumentary: FOUND: dry, pink, warm Neurologic (Brief) Neurological: FOUND: cranial 2-12 intact Psychiatric (Brief) Psychiatric: FOUND: alert, attentive, normal affect, oriented Laboratory Laboratory Laboratory Tests 09/08/16 04:25 Assessment & Plan Problems: (1) History of arthroplasty of left knee Status: Acute (2) Anemia following surgery (3) Atrial fibrillation with rapid ventricular response Status: Acute (4) Anxiety Status: Chronic (5) Hypertension Status: Chronic (6) Coronary artery disease Status: Chronic (7) Aortic valve insufficiency Status: Chronic (8) Gait instability Status: Acute (9) Idiopathic progressive neuropathy (10) Aortic insufficiency (11) Carotid artery stenosis Status: Chronic (12) History of breast cancer Status: Chronic (13) Degenerative arthritis of left knee Status: Chronic Plan/Intensity of Service 09/09/16 Acutely went into A-fib RVR this morning during shower at 7 am. Rate up to 180 at times. Give one-time dose of Cardizem 10 milligrams IV as well as amiodarone 150 milligrams IV bolus. Did speak with Dr. Fleming and Grace Stallings APRN. Will hold therapy today and monitor cardiac telemetry. Continue with anticoagulation. Coumadin dosing being managed by pharmacy. INR today 2.89 Work on weaning down on oxygen as able. Oxycodone as needed for pain control Will continue to follow closely today Code Status Full Code Hospital Course Summary Disclaimer The hospital course summary below is not to be considered part of the above Progress Note. Hospital Course Summary 09/08/16 Continue on amiodarone 400 milligrams twice a day 7 days, end date 09/15. Then change to 200 milligrams daily Serial troponins trending down. Likely increase related to spontaneous A-fib with RVR. Continue with anticoagulation. Coumadin dosing being managed by pharmacy. INR today 2.48 Work on weaning down on oxygen as able. Recheck CBC on 09/11 to follow postoperative anemia. Continue to encourage work with PT and OT for ongoing postoperative strengthening and improve function. 09/09/16 Acutely went into A-fib RVR this morning during shower at 7 am. Rate up to 180 at times. Give one-time dose of Cardizem 10 milligrams IV as well as amiodarone 150 milligrams IV bolus. Did speak with Dr. Fleming and Grace Stallings APRN. Will hold therapy today and monitor cardiac telemetry. Continue with anticoagulation. Coumadin dosing being managed by pharmacy. INR today 2.89 Work on weaning down on oxygen as able. Oxycodone as needed for pain control Will continue to follow closely today UBALDO POPE APRN Sep 09, 2016 09:38
--- NOTE | 2016-09-09 10:30 | NUR ---
HR/Tele VS's stable. HR is noted to have come back down into the 80's. Tele reports pt. is back in Sinus Rhythm. KELSI Landeros, notified. Will continue to monitor.
[2016-09-09] MEDS: ACETAMINOPHEN 325 MG TABLET PO SCH ×4 (10:41→22:24)
[2016-09-09] MEDS: CALCIUM 600mg + VIT D 400 TABLET PO SCH ×2 (10:41→21:03)
[2016-09-09] MEDS: FUROSEMIDE 20 MG TABLET PO SCH (10:42)
[2016-09-09] MEDS: DOCUSATE SODIUM 100 MG CAPSULE PO SCH ×2 (10:42→21:03)
[2016-09-09] MEDS: LISINOPRIL 20 MG TABLET PO SCH ×2 (10:42→21:04)
[2016-09-09] MEDS: LETROZOLE 2.5 MG TABLET PO SCH (10:42)
[2016-09-09] MEDS: VITAMIN E 1,000 UNIT CAPSULE PO SCH (10:43)
--- NOTE | 2016-09-09 11:10 | NUR ---
Heartburn/Chest Pain Pt. now reports sternal chest pain rated a 4/10. She reports it feels like heartburn but is unsure what the pain is. She denies any radiating pain. Notified KELSI Landeros. PRN Carlos Manuel given. Please see eMAR. Will continue to monitor.
[2016-09-09] MEDS ORDERED: MAG-AL + SIM LIQUID 30 ML UDC PO PRN (11:15)
[2016-09-09] MEDS ORDERED: G.I. COCKTAIL 30ml PO ONE (13:45)
--- NOTE | 2016-09-09 14:02 | NUR ---
Chest Pain Pt. woke up from a nap and reports she is still having sternal pain. She reports it is not any worse than what it was. Notified KELSI Landeros. Troponin and GI Cocktail ordered. GI Cocktail administered. Please see eMAR. Pt. is currently resting in bed. Alarm is on. Will continue to monitor.
--- NOTE | 2016-09-09 14:12 | NUR ---
PT/OT Note: Hold all therapies per Leti Leach APRN.
--- NOTE | 2016-09-09 15:15 | NUR ---
Re-assess Chest Pain Pt. has woken up from nap and reported pain in gone after GI Cocktail. Will continue to monitor.
--- NOTE | 2016-09-09 17:16 | NUR ---
Sternal Pain Pt. now reports sternal pain is back, but not as bad. She describes pain as an ache and rates pain a 2/10. Pt. denies nausea/upset stomach. Pt. reports GI Cocktail helped, but not the Maalox. VS's stable. Pt. is weaned down to 1L O2. Pt. does reports some SOA at times. Dr. Sweeney notified. Verbal orders for Tums PRN given. Will continue to monitor.
[2016-09-09] MEDS: CALCIUM CARBONATE 500mg Chewable TAB PO PRN (17:57)
--- NOTE | 2016-09-09 19:00 | NUR ---
Status VS's stable. Pt. denies pain at this time. Tums PRN given at dinner. Pt. does grimace with walking. Explained pain scale to pt. and she reported left knee pain was a 1-2/10 even with walking. Scheduled Tylenol given. Mepilex dressing to left knee C/D/I. Bilateral pedal pulses palpable. Polar Pack implemented for comfort. Pt. is currently sitting up in the recliner. Alarm is on. Report has been past on to operating table assembler.
--- NOTE | 2016-09-10 04:36 | NUR ---
Chart Check 24 hour chart check completed
[2016-09-10 05:42] LABS: INR 2.61 (0.76-1.04); PROTHROMBIN TIME 28.4 SEC (9.31-12.49)
--- NOTE | 2016-09-10 06:09 | NUR ---
Summary Pt has denied pain this shift, even when wincing and facial grimacing when up to the BR. Pt has denied PRN pain meds stating "No, I feel good". Pt stated "Today is the best day so far". Pt states she is ready to go home soon. Pt ambulates well. Pt has hurried when sitting to the bed and was reminded by staff to lower herself slowly and watch for obstacles. o2 remained at 2L though the night. No complaint of SOA. No BM this shift. Pt has refused MOM. Pt sleeping in bed at this time.
[2016-09-10 07:27] VITALS: BP 161/67; PULSE 80; RESP 20; TEMP 97.6; O2SAT 97
--- NOTE | 2016-09-10 07:34 | NUR ---
COUMADIN CONSULT (Recurring): Today's INR = 2.61. Will give Warfarin 1mg today. Will continue to monitor & make adjustments accordingly. Thank you.
[2016-09-10 07:40] VITALS: PULSE 80; RESP 20
[2016-09-10] MEDS: ACETAMINOPHEN 325 MG TABLET PO SCH ×4 (09:00→20:24)
[2016-09-10] MEDS: OXYCODONE I.R. 5 MG TABLET PO PRN ×3 (09:14→18:08)
[2016-09-10] MEDS: CALCIUM 600mg + VIT D 400 TABLET PO SCH ×2 (09:14→20:29)
[2016-09-10] MEDS: FUROSEMIDE 20 MG TABLET PO SCH (09:14)
[2016-09-10] MEDS: DOCUSATE SODIUM 100 MG CAPSULE PO SCH ×2 (09:14→20:24)
[2016-09-10] MEDS: LETROZOLE 2.5 MG TABLET PO SCH (09:14)
[2016-09-10] MEDS: VITAMIN E 1,000 UNIT CAPSULE PO SCH (09:14)
[2016-09-10] MEDS: LISINOPRIL 20 MG TABLET PO SCH ×2 (09:15→20:23)
[2016-09-10] MEDS: AMIODARONE 200 MG TABLET PO SCH ×2 (09:15→20:23)
[2016-09-10] MEDS ORDERED: WARFARIN 1 MG TABLET PO SCH (12:00)
[2016-09-10] MEDS ORDERED: BISACODYL 10 MG SUPPOSITORY RECTALLY PRN (13:30)
--- NOTE | 2016-09-10 15:00 | NUR ---
Status VS's stable. Pt. has been able to be weaned to RA today. She reports she feels much better today. Pt. denies SOA and nausea. She reports pain is better today and has rated pain a 1-2/10 even with activity (Although pt. is [place] and does appear to have a little confusion at times). Pain scale has been explained to pt. Some grimacing noted at times with activity. Pt. reports Tylenol does not do a thing for her pain, so spoke with pt. about options and decided to give PRN Florence instead of Tylenol this shift. Please see eMAR. Will continue to monitor.
--- NOTE | 2016-09-10 16:30 | NUR ---
BM No BM noted to be charted for pt. Pt. is not certain about last BM, but reports she does not feel constipated. Spoke with pt. about options and decided on PRN suppository. Please see eMAR. Pt. did have moderate results after suppository. Will continue to monitor.
[2016-09-10 16:37] VITALS: BP 117/48; PULSE 96; RESP 20; TEMP 97.7; O2SAT 92
--- NOTE | 2016-09-10 18:55 | NUR ---
Summary VS's stable. Pt. continues to rated left knee pain a -06/30. Re-positioning and polar pack implemented for comfort. Mepilex dressing C/D/I. Bilateral pedal pulses palpable. Pt. has denied chest pain, SOA and nausea this shift. Pt. is currently resting in the recliner. Alarm is on. Will pass on report to plating engineer.
--- NOTE | 2016-09-10 19:38 | NUR ---
Marjan Reported by Tele that pt. had a [place] PVC. It does not appear pt. has a history of this. Pt. denies chest pain/palpitations and is asymptomatic. Notified Grace Stallings with Dr. Fleming. She gave verbal orders for magnesium and BMP labs to be done now. Will pass on to warehouse supervisor 3rd shift.
[2016-09-10 20:21] LABS: ANION GAP 12 MEQ/L (5-15); BUN/CREATININE RATIO 19 RATIO (6-26); CALCIUM 9.6 MG/DL (8.4-10.2); CHLORIDE 98 MEQ/L (98-107); CO2 - CARBON DIOXIDE 32 MEQ/L (22-30); GLOMERULAR FILTRATION RATE 53; GLUCOSE 129 MG/DL (65-110); MAGNESIUM 2.1 MG/DL (1.6-2.3); POTASSIUM 3.4 MEQ/L (3.6-5); SODIUM 142 MEQ/L (134-144)
[2016-09-10 21:29] VITALS: BP 135/53; PULSE 83; RESP 16; TEMP 98.6; O2SAT 91
--- NOTE | 2016-09-10 22:44 | PDIRUOPC ---
Overall Plan of Care Date DATE: 09/10/16 TIME: 22:41 Relevant Changes Relevant Changes: No I have reviewed the patient's information and concur with the finding and results of the pre-admission screen. Certification I certify the patient for rehabilitation. Patient Impairments Prior Medical Conditions: (1) Myopathy Additional Information: pt has progressive weakness of left leg prior to surgery due to pain, and has had similar progression since surgery due to immobility. PT and OT to work with her to increase function and strength. (2) Atrial fibrillation with rapid ventricular response Status: Acute Additional Information: medical to manage (3) Gait instability Status: Acute Additional Information: PT and OT to work with pt to increase stability (4) History of arthroplasty of left knee Status: Acute Additional Information: Surgical recovery with PT and OT involvement will speed improvement (5) Anemia following surgery (6) Idiopathic progressive neuropathy Additional Information: PT and OT to work on exercises and methods to control neuropathy pain. Current Medical Conditions: (1) Myopathy Additional Information: pt has progressive weakness of left leg prior to surgery due to pain, and has had similar progression since surgery due to immobility. PT and OT to work with her to increase function and strength. (2) Atrial fibrillation with rapid ventricular response Status: Acute Additional Information: medical to manage (3) Gait instability Status: Acute Additional Information: PT and OT to work with pt to increase stability (4) History of arthroplasty of left knee Status: Acute Additional Information: Surgical recovery with PT and OT involvement will speed improvement (5) Anemia following surgery (6) Idiopathic progressive neuropathy Additional Information: PT and OT to work on exercises and methods to control neuropathy pain. Medical Prognosis Fair IRF Tx That Should Address Dx: (1) Gait instability (2) History of arthroplasty of left knee Dx Requiring Medical FU: (1) Coronary artery disease (2) History of arthroplasty of left knee (3) Atrial fibrillation with rapid ventricular response (4) Anemia following surgery Vital Signs Vital Signs Date Time Temp Pulse Resp B/P Pulse Ox O2 Delivery O2 Flow Rate FiO2 09/10/16 22:14 Nasal Cannula 2.00 09/10/16 21:29 98.6 83 16 135/53 91 Laboratory Laboratory Tests Test 09/09/16 04:26 09/09/16 04:55 09/09/16 13:40 09/10/16 05:01 Urine Collection Type Cleancatch-midstream Urine Color Yellow Urine Turbidity Clear Urine pH 6.0 Urine Specific [place] <=1.005 Urine Protein Negative Urine Glucose (UA) Negative Urine Ketones 1+ Urine Blood Negative Urine Nitrite Negative Urine Bilirubin Negative Urine Urobilinogen 0.2EU/DL Urine Leukocyte Esterase Trace Urinalysis Comment Microscopic not ind. Prothromb Time International Ratio 2.89 2.61 Troponin I 0.052ng/ml Chemistry Specimen Hemolysis < 15 Test 09/10/16 20:01 Turbidity < 20 Sodium Level 142MEQ/L Potassium Level 3.4MEQ/L Chloride Level 98MEQ/L Carbon Dioxide Level 32MEQ/L Anion Gap 12MEQ/L Blood Urea Nitrogen 19.0MG/DL Creatinine 1.0MG/DL Glomerular Filtration Rate Calc 53 BUN/Creatinine Ratio 19RATIO Glucose Level 129MG/DL Calculated Osmolality 277MOSM/KG Calcium Level 9.6MG/DL Magnesium Level 2.1MG/DL Icterus Index < 2 Chemistry Specimen Hemolysis < 15 Anticipated Interventions The patient requires inpatient IRF care for PT, OT, and/or ST for residuals remaining from LTKA surgery and neuropathy resulting in muscular weakness and strength deficits. ROM Deficit: Left Lower Extremity, Right Lower Extremity Strength Deficits: Left Lower Extremity, Right Lower Extremity FIM Scores Ambulation Distance: 127 Ambulation Ability: 4 Minimal Assistance Ambulation Assistance Needed: 1 Person Walk FIM Score Reason: distance. Pt amb with 47-5/7 A Stairs: 5 Supervision/Setup Number of Stairs: 12 Eating Ability-FIM: 5 Supervision/Setup Grooming Ability: 5 Supervision/Setup Grooming FIM Score Reason: seated in w/c at sink Bathing Ability: 5 Supervision/Setup Upper Body Dressing Ability: 5 Supervision/Setup Lower Body Dressing Ability: 4 Minimal Assistance Lower Body Dressing Assistance: 1 Person Toileting Ability: 4 Minimal Assistance Toileting Assistance Needed: 1 Person Toileting FIM Score Reason: pt demonstrates taking down and pulling up pants with 1 hand on FWW or grab bar at all times 5/7 assist. Bed Transfer Ability: 4 Minimal Assistance Bed Transfer Assistance Needed: 1 Person Bed FIM Score Reason: requires assist for LEs into and out of bed Chair Transfer Ability: 4 Minimal Assistance Chair Transfer Assistance Need: 1 Person Chair FIM Score Reason: VC for safety required Overall Wheelchair Transfer Ab: 4 Minimal Assistance Overall Toilet / Commode Trans: 4 Minimal Assistance Toilet / Commode Transfer Assi: 1 Person Toilet FIM Score Reason: Safety VC required Tub / Shower Transfer Ability: 4 Minimal Assistance Comprehension Ability: 5 Supervision/Setup Social Interaction: 6 Modified [place] Problem Solvin Modified [place] Expression Ability: 6 Modified [place] Memory: 5 Supervision/Setup Current Functional Status Patient Requires * Patient has been determined to have significant functional limitations requiring at least two therapy disciplines. * Rehabilitation medical practitioner will provide admission approval, assessment and oversight and program coordination at least daily. * Intensive rehabilitative nursing services on site and available 24 hours a day. * The treatment plan will be developed within 24 hours of admission. * Interdisciplinary and goal oriented treatment by professional nursing, sr. social media & mobile manager, and rehabilitation therapist. * Interdisciplinary team meeting weekly inclusive of ongoing comprehensive discharge planning. First team meeting by day seven. Weekly meetings to follow. * Rehab Physician is the team meeting leader. * Pharmacy and diagnostic services will be available. * Ongoing comprehensive rehab program with at least 2 disciplines and greater than or equal to 3 hours a day, 5 days a week. Physical Therapy Minutes: 90 Occupational Therapy Minutes: 90 Therapy The patient is to receive therapy at least 5 days a week. PT Treatment Plan: Therapeutic Exercise, Gait Training, Functional Activities , Patient/Family Education Treatment Plan Frequency: five times per week Treatment Plan Duration: three weeks Plan of Care Comment: 6x/week x 1 week, then 5x/week x 2 weeks OT Treatment Plan: ADL's (basic care), Ther. Exercise for ADL's, UE Functional Training, Balance Training, Pt./Family Education, IADL's OT Treatment Plan Frequency: five times per week OT Treatment Plan Duration: three weeks Anticapted LOS/Outcomes Anticipated Functional Outcome improvement in mobility and pain control Anticipated DC Destination: Home, self [facility] Safety Plan The patient will be provided with the development of a Home Safety Plan for return to a home or home-like environment and to ensure safety post discharge. Complicating Conditions Complications since IRF admit: (1) Myopathy Comments: pt has progressive weakness of left leg prior to surgery due to pain , and has had similar progression since surgery due to immobility. PT and OT to work with her to increase function and strength. (2) Atrial fibrillation with rapid ventricular response Status: Acute Comments: medical to manage (3) Gait instability Status: Acute Comments: PT and OT to work with pt to increase stability (4) History of arthroplasty of left knee Status: Acute Comments: Surgical recovery with PT and OT involvement will speed improvement (5) Anemia following surgery (6) Idiopathic progressive neuropathy Comments: PT and OT to work on exercises and methods to control neuropathy pain. Other Contributing Factors: Plan to Avoid Complications Barriers to Attaining Goals: weakness, balance, endurance, pain control Plan to Avoid Complications The patient cannot receive this care in a lesser intensive setting such as Assisted or Outpatient Therapy due to the patient requiring the following CAD, afib with rvr The patient requires oversight by a rehabilitation physician to manage their rehabilitation treatment plan and the multidisciplinary approach to care that can only be provided in an IRF and requires a multidisciplinary approach to care , provided by professional PTs, OTs, STs, dieticians, RTs, rehabilitation nurses and is not available in lesser levels of care. The frequency and duration for therapy, as recommended by the professional Rehabilitation therapists, meet the patient's initial rehabilitation treatment plan needs and will be further evaluated on a weekly basis for progress and/or changes needed. TIM ALBERTO MD Sep 10, 2016 22:43
--- NOTE | 2016-09-10 22:45 | PNPDOC ---
IRU Subjective Date DATE: 09/10/16 TIME: 22:44 Subjective Pt worked with PT and OT yesterday, rested most of today. Ate meals in commons area. IRU Objective Vital Signs Vital signs Vital Signs Date Time Temp Pulse Resp B/P Pulse Ox O2 Delivery O2 Flow Rate FiO2 09/10/16 22:14 Nasal Cannula 2.00 09/10/16 21:29 98.6 83 16 135/53 91 Telemetry Rhythm: Atrial Fibrillation Height (Feet): 5 Height (Inches): 4.00 Weight (Kilograms): 58.500 Laboratory Laboratory Laboratory Tests Test 09/09/16 04:26 09/09/16 04:55 09/09/16 13:40 09/10/16 05:01 Urine Collection Type Cleancatch-midstream Urine Color Yellow Urine Turbidity Clear Urine pH 6.0 Urine Specific [place] <=1.005 Urine Protein Negative Urine Glucose (UA) Negative Urine Ketones 1+ Urine Blood Negative Urine Nitrite Negative Urine Bilirubin Negative Urine Urobilinogen 0.2EU/DL Urine Leukocyte Esterase Trace Urinalysis Comment Microscopic not ind. Prothromb Time International Ratio 2.89 2.61 Troponin I 0.052ng/ml Chemistry Specimen Hemolysis < 15 Test 09/10/16 20:01 Turbidity < 20 Sodium Level 142MEQ/L Potassium Level 3.4MEQ/L Chloride Level 98MEQ/L Carbon Dioxide Level 32MEQ/L Anion Gap 12MEQ/L Blood Urea Nitrogen 19.0MG/DL Creatinine 1.0MG/DL Glomerular Filtration Rate Calc 53 BUN/Creatinine Ratio 19RATIO Glucose Level 129MG/DL Calculated Osmolality 277MOSM/KG Calcium Level 9.6MG/DL Magnesium Level 2.1MG/DL Icterus Index < 2 Chemistry Specimen Hemolysis < 15 Assessment & Plan Problems: (1) Myopathy Assessment & Plan: PT and OT to finish creating care plan. review tomorrow. (2) Atrial fibrillation with rapid ventricular response Status: Acute Assessment & Plan: managed by medical. (3) Gait instability Status: Acute Assessment & Plan: OT adn PT workign with pt. (4) History of arthroplasty of left knee Status: Acute Assessment & Plan: pain managed. (5) Anemia following surgery Assessment & Plan: medical to follow. (6) Idiopathic progressive neuropathy DVT Prophylaxis: SCD'S Code Status Full Code Interventions to Obtain Goals PT Treatment Plan: Therapeutic Exercise, Gait Training, Functional Activities , Patient/Family Education OT Treatment Plan: ADL's (basic care), Ther. Exercise for ADL's, UE Functional Training, Balance Training, Pt./Family Education, IADL's Hospital Course Summary Disclaimer The hospital course summary below is not to be considered part of the above Progress Note. Hospital Course Summary 09/08/16 Continue on amiodarone 400 milligrams twice a day 7 days, end date 09/15. Then change to 200 milligrams daily Serial troponins trending down. Likely increase related to spontaneous A-fib with RVR. Continue with anticoagulation. Coumadin dosing being managed by pharmacy. INR today 2.48 Work on weaning down on oxygen as able. Recheck CBC on 09/11 to follow postoperative anemia. Continue to encourage work with PT and OT for ongoing postoperative strengthening and improve function. 09/09/16 Acutely went into A-fib RVR this morning during shower at 7 am. Rate up to 180 at times. Give one-time dose of Cardizem 10 milligrams IV as well as amiodarone 150 milligrams IV bolus. Did speak with Dr. Fleming and Grace Stallings APRN. Will hold therapy today and monitor cardiac telemetry. Continue with anticoagulation. Coumadin dosing being managed by pharmacy. INR today 2.89 Work on weaning down on oxygen as able. Oxycodone as needed for pain control Will continue to follow closely today TIM ALBERTO MD Sep 10, 2016 22:45
[2016-09-11 05:22] LABS: BASOPHILS % (AUTO) 0.3 % (0-2); EOSINOPHILS # (AUTO) 0.1 T/MM3 (0-0.5); EOSINOPHILS % (AUTO) 1.3 % (0-4); HCT - HEMATOCRIT 29.7 % (36-46); HGB - HEMOGLOBIN 9.2 GM/DL (12-16); IMMATURE GRANULOCYTE # (AUTO) 0.02 T/MM3 (0.00-0.03); IMMATURE GRANULOCYTE % (AUTO) 0.3 % (0.0-0.5); LYMPHOCYTES # (AUTO) 1.5 T/MM3 (1-4.8); LYMPHOCYTES % (AUTO) 20.8 % (23-45); MEAN CORPUSCULAR HGB 30.4 UUG (26-34); MEAN PLATELET VOLUME 9.4 UM3 (9.4-12.4); MONOCYTES # (AUTO) 0.8 T/MM3 (0-0.8); MONOCYTES % (AUTO) 11.1 % (0-9.0); NEUTROPHILS #(AUTO)-ABSOLUTE 4.7 T/MM3 (1.8-7.7); NEUTROPHILS % (AUTO) 66.2 % (33-66); RED BLOOD COUNT 3.03 M/MM3 (4.00-5.20); WBC - WHITE BLOOD COUNT 7.1 T/MM3 (4.5-11.0)
[2016-09-11 05:27] LABS: INR 2.02 (0.76-1.04)
--- NOTE | 2016-09-11 05:30 | NUR ---
Chart Check 24 hour chart check completed
--- NOTE | 2016-09-11 05:32 | NUR ---
Bigeminy No critical labs, continue to monitor.
--- NOTE | 2016-09-11 05:32 | NUR ---
Summary Pt used call light to report emesis. Pt said she got nauseated 10min after evening pill administration and vomited. Moderate emesis, partially digested food, no pills seen. Occasional PVC's through the night. Pt asymptomatic of cardiac distress. Pt has denied pain and has denied Tylenol saying "I don't need it, I'm Fine." Pt appears to have slept soundly through the night.
[2016-09-11 07:46] VITALS: BP 140/62; PULSE 86; RESP 14; TEMP 97.5; O2SAT 96
[2016-09-11] MEDS: OXYCODONE I.R. 5 MG TABLET PO PRN ×2 (08:16→20:02)
--- NOTE | 2016-09-11 08:16 | NUR ---
Pain Called in to room by STORAGE ARCHITECT. Pt. is reported to be in a lot of pain. Pt. is being assisted to the wheelchair and is noted to be grimacing. She reports left knee pain at a 08/28. PRN [place] given. Please see eMAR. Will continue to monitor.
[2016-09-11 08:20] VITALS: PULSE 86; RESP 16
[2016-09-11] MEDS: LETROZOLE 2.5 MG TABLET PO SCH (08:53)
[2016-09-11] MEDS: ACETAMINOPHEN 325 MG TABLET PO SCH ×4 (08:54→22:18)
[2016-09-11] MEDS: VITAMIN E 1,000 UNIT CAPSULE PO SCH (08:54)
[2016-09-11] MEDS: CALCIUM 600mg + VIT D 400 TABLET PO SCH ×2 (08:55→20:01)
[2016-09-11] MEDS: AMIODARONE 200 MG TABLET PO SCH ×2 (08:55→20:01)
[2016-09-11] MEDS: FUROSEMIDE 20 MG TABLET PO SCH (08:55)
[2016-09-11] MEDS: LISINOPRIL 20 MG TABLET PO SCH ×2 (08:56→20:01)
[2016-09-11] MEDS: DOCUSATE SODIUM 100 MG CAPSULE PO SCH ×2 (08:56→20:00)
--- NOTE | 2016-09-11 09:16 | NUR ---
Re-assess Pt. reports left knee pain a 05/30. Scheduled Tylenol given at breakfast. Will continue to monitor.
--- NOTE | 2016-09-11 09:57 | NUR ---
COUMADIN CONSULT (Recurring): Today's INR = 2.02. Will give Warfarin 2mg today. Will continue to monitor & make adjustments accordingly. Thank you.
[2016-09-11] MEDS ORDERED: WARFARIN 2 MG TABLET PO SCH (12:00)
[2016-09-11 12:10] VITALS: BP 133/49; PULSE 99; RESP 20; O2SAT 92
--- NOTE | 2016-09-11 12:20 | NUR ---
Nausea Ramon from PT called this RN and notified that he is working with pt. in the Gym and pt. is feeling nauseous. By the time this RN came to assess pt., pt. report she feels better and denies nausea. VS's stable. Will continue to monitor.
--- NOTE | 2016-09-11 12:32 | PNPDOC ---
LILY PATTERSON PAINTER 09/11/16 1228: Subjective Date DATE: 09/11/16 TIME: 12:24 Subjective Consuelo is seen today in the dining room on IRU. She denies chest pain or palpitations. States she had some nausea when working with PT this morning. She states that she wants to go home tomorrow because [place] can do [place]. Objective Vital Signs Vital signs Vital Signs 09/11/16 09/11/16 07:46 08:20 Temp 97.5 Pulse 86 86 Resp 14 16 B/P 140/62 Pulse Ox 96 O2 Delivery Room Air Telemetry Rhythm: Sinus Rhythm Height (Feet): 5 Height (Inches): 4.00 Weight (Kilograms): 58.500 General Alert, Orientated x 3, Cooperative ENMT (Brief) mucosa moist Neck (Brief) NOT FOUND: JVD, carotid bruits Respiratory (Brief) clear all wooten, equal bilaterally, NOT FOUND: rales, wheezes Cardiovascular (Brief) pedal edema (trace), regular rate, regular rhythm, NOT FOUND: click, gallop, murmur, rub Abdomen (Brief) BS normo active x4, soft Integumentary (Brief) dry, warm Psychiatric (Brief) alert, oriented Laboratory Laboratory Laboratory Tests Test 09/09/16 13:40 09/10/16 05:01 09/10/16 20:01 09/11/16 04:34 Troponin I 0.052ng/ml Chemistry Specimen Hemolysis < 15 < 15 Prothromb Time International Ratio 2.61 2.02 Turbidity < 20 Sodium Level 142MEQ/L Potassium Level 3.4MEQ/L Chloride Level 98MEQ/L Carbon Dioxide Level 32MEQ/L Anion Gap 12MEQ/L Blood Urea Nitrogen 19.0MG/DL Creatinine 1.0MG/DL Glomerular Filtration Rate Calc 53 BUN/Creatinine Ratio 19RATIO Glucose Level 129MG/DL Calculated Osmolality 277MOSM/KG Calcium Level 9.6MG/DL Magnesium Level 2.1MG/DL Icterus Index < 2 White Blood Count 7.1T/MM3 Red Blood Count 3.03M/MM3 Hemoglobin 9.2GM/DL Hematocrit 29.7% Mean Corpuscular Volume 98.0UM3 Mean Corpuscular Hemoglobin 30.4UUG Mean Corpuscular Hemoglobin Concent 31.0GM/DL RDW Standard Deviation 44.9FL Platelet Count 257T/MM3 Mean Platelet Volume 9.4UM3 Immature Granulocyte % (Auto) 0.3% Neutrophils (%) (Auto) 66.2% Lymphocytes (%) (Auto) 20.8% Monocytes (%) (Auto) 11.1% Eosinophils (%) (Auto) 1.3% Basophils (%) (Auto) 0.3% Absolute Immature Granulocyte (auto 0.02T/MM3 Absolute Neutrophils (auto) 4.7T/MM3 Absolute Lymphocytes (auto) 1.5T/MM3 Absolute Monocytes (auto) 0.8T/MM3 Absolute Eosinophils (auto) 0.1T/MM3 Absolute Basophils (auto) 0.0T/MM3 Laboratory Tests 09/10/16 20:01 Laboratory Tests 09/11/16 04:34 Medications Current Medications Acetaminophen (Tylenol Regular Strength) 650 mg QID PO Last administered on 12:22; Start 09/06/16 at 21:00 Calcium/Vitamin D (Caltrate + D) 2 tab BID PO Last administered on 09/11/16 08 :55; Start 09/06/16 at 21:00 Furosemide (Lasix) 20 mg DAILY PO Last administered on 09/11/16 08:55; Start 09/07/16 at 09:00 Letrozole (Femara) 2.5 mg DAILY PO Last administered on 09/11/16 08:53; Start 09/07/16 at 09:00 Lisinopril (Prinivil) 20 mg BID PO Last administered on 09/11/16 08:56; Start 09/06/16 at 21:00 Lorazepam (Ativan) 0.5 mg HS PRN PO SLEEP Last administered on 09/08/16 02:59 ; Start 09/06/16 at 20:30 Oxycodone HCl (Roxicodone) 1-3 Q3H PRN PO BREAKTHROUGH PAIN Last administered on 09/11/16 08:16; Start 09/06/16 at 20:30 Polyethylene Glycol (Miralax) 17 g DAILY PRN PO CONSTIPATION; Start 09/06/16 at 20:30 Vitamin E (Vitamin E 1,000 Units) 1,000 unit DAILY PO Last administered on 09/11 08:54; Start 09/07/16 at 09:00 Enoxaparin Sodium (Lovenox) 40 mg DAILY SQ Last administered on 09/07/16 09:42 ; Start 09/07/16 at 09:00; Stop 09/08/16 at 09:25; Status DC Docusate Sodium (Colace) 100 mg BID PO Last administered on 09/11/16 08:56; Start 09/07/16 at 09:00 Warfarin Sodium (Coumadin Protocol) NOTE [facility] ; Start 09/07/16 at 06:30 Diltiazem HCl (Cardizem) 10 mg O ONCE IV Last administered on 09/07/16 14:30 ; Start 09/07/16 at 14:30; Stop 09/07/16 at 14:37; Status DC Metoprolol Tartrate 5 mg 5 mg O ONCE IV Last administered on 09/07/16 14:45; Start 09/07/16 at 14:45; Stop 09/07/16 at 14:46; Status DC Amiodarone HCl 150 mg/Sodium Chloride 103 ml @ 600 mls/hr NOW ONCE IV ; Start 09/07/16 at 15:00; Stop 09/07/16 at 19:12; Status DC Amiodarone HCl 900 mg/Sodium Chloride 518 ml @ 33.33 mls/ hr [id number] IV ; Start 09/07/16 at 15:00; Stop 09/07/16 at 18:53; Status DC Amiodarone HCl/ Sodium Chloride (Cordarone/NS) 518 ml @ 16.67 mls/ hr Q24H IV ; Start 09/07/16 at 21:00; Stop 09/07/16 at 21:00; Status DC Amiodarone HCl (Pacerone) 200 mg DAILY PO ; Start 09/14/16 at 09:00 Diltiazem HCl 10 mg 10 mg O ONCE IV Last administered on 09/09/16 08:45; Start 09/09/16 at 08:45; Stop 09/09/16 at 08:57; Status DC Amiodarone HCl/ Sodium Chloride (Amiodarone/NS) 103 ml @ 600 mls/hr NOW ONCE IV Last administered on 09/09/16 09:11; Start 09/09/16 at 09:00; Stop at 09:10; Status DC Al Hydroxide/Mg Hydroxide (Maalox) 30 ml Q3-4H PRN PO INDIGESTION Last administered on 09/09/16 11:10; Start 09/09/16 at 11:15 Pharmacy Profile Note (/Maalox/ Lidocaine Soln) 30 ml O ONCE PO Last administered on 09/09/16 13:44; Start 09/09/16 at 13:45; Stop 09/09/16 at 13:46 ; Status DC Calcium Carbonate (TUMS Regular Strength) 1,000 mg PRN PRN PO Last administered on 09/09/16 17:57; Start 09/09/16 at 17:15 Warfarin Sodium (COUMADIN 1 mg) 1 mg NOON PO Last administered on 09/10/16 12: 24; Start 09/10/16 at 12:00; Stop 09/11/16 at 08:08; Status DC Bisacodyl (Dulcolax) 10 mg DAILY PRN RECTALLY CONSTIPATION Last administered on 09/10/16 16:23; Start 09/10/16 at 13:30 Warfarin Sodium (COUMADIN 2 mg) 2 mg NOON PO Last administered on 09/11/16 12: 21; Start 09/11/16 at 12:00; Stop 09/11/16 at 12:15; Status DC Assessment & Plan Problems: (1) Atrial fibrillation with rapid ventricular response Status: Acute Assessment & Plan: Continue Amiodarone 400mg BID X7 days then 200mg daily (2) History of arthroplasty of left knee Status: Acute Assessment & Plan: S/P knee replacement surgery (3) Coronary artery disease Status: Chronic Assessment & Plan: per H&P (4) Aortic valve insufficiency Status: Chronic Assessment & Plan: per H&P (5) Carotid artery stenosis Status: Chronic Assessment & Plan: per H&P (6) Hypertension Status: Chronic Assessment & Plan: per H&P Plan/Intensity of Service 09/07/16 History of Paroxysmal A Fib per H&P. Recent onset A Fib RVR, anticoagulated, INR 2.2. Start Amiodarone 150mg bolus followed by drip. Consent for DCCV to be done this afternoon if doesn't convert spontaneously. 09/08/16 Continue Amiodarone 400mg BID X7 days then 200mg daily. 09/11/16 Had some A Fib RVR on 09/09/16 which converted with Cardizem and Amiodarone IV. Repeat EKG today for QT/QTc. Metoprolol 25mg BID for rate Thank you for allowing us to participate in this patient's care. SAMUEL TRAN MD 09/13/16 1118: Assessment & Plan Plan/Intensity of Service After examining the patient I agree with the above assessment. I am involved in the formulation of the patient's plan of care. LILY PATTERSON PAINTER Sep 11, 2016 12:28 SAMUEL TRAN MD Sep 13, 2016 11:18
--- NOTE | 2016-09-11 13:25 | PNPDOC ---
IRU Subjective Date DATE: 09/10/16 TIME: 1600 Rounding and evaluation performed 09/10/2016 approximately 1400. Note entered today. Subjective Patient worked with physical therapy Sunday and Sunday, is tired, but did eat in the commons area. Has been up moving today. IRU Objective Vital Signs Vital signs Vital Signs Date Time Temp Pulse Resp B/P Pulse Ox O2 Delivery O2 Flow Rate FiO2 09/11/16 12:10 99 20 133/49 92 Room Air 09/11/16 07:46 97.5 09/10/16 22:14 2.00 Telemetry Rhythm: Sinus Rhythm Height (Feet): 5 Height (Inches): 4.00 Weight (Kilograms): 58.500 General General Appearance: Alert, Orientated x 2 Respiratory (Brief) Respiratory: FOUND: clear all wooten, equal bilaterally Cardiovascular (Brief) Cardiac: FOUND: regular rate (no irregularity of rate or rhythm heard), regular rhythm Capillary Refill: <2 sec Laboratory Laboratory Laboratory Tests Test 09/09/16 13:40 09/10/16 05:01 09/10/16 20:01 09/11/16 04:34 Troponin I 0.052ng/ml Chemistry Specimen Hemolysis < 15 < 15 Prothromb Time International Ratio 2.61 2.02 Turbidity < 20 Sodium Level 142MEQ/L Potassium Level 3.4MEQ/L Chloride Level 98MEQ/L Carbon Dioxide Level 32MEQ/L Anion Gap 12MEQ/L Blood Urea Nitrogen 19.0MG/DL Creatinine 1.0MG/DL Glomerular Filtration Rate Calc 53 BUN/Creatinine Ratio 19RATIO Glucose Level 129MG/DL Calculated Osmolality 277MOSM/KG Calcium Level 9.6MG/DL Magnesium Level 2.1MG/DL Icterus Index < 2 White Blood Count 7.1T/MM3 Red Blood Count 3.03M/MM3 Hemoglobin 9.2GM/DL Hematocrit 29.7% Mean Corpuscular Volume 98.0UM3 Mean Corpuscular Hemoglobin 30.4UUG Mean Corpuscular Hemoglobin Concent 31.0GM/DL RDW Standard Deviation 44.9FL Platelet Count 257T/MM3 Mean Platelet Volume 9.4UM3 Immature Granulocyte % (Auto) 0.3% Neutrophils (%) (Auto) 66.2% Lymphocytes (%) (Auto) 20.8% Monocytes (%) (Auto) 11.1% Eosinophils (%) (Auto) 1.3% Basophils (%) (Auto) 0.3% Absolute Immature Granulocyte (auto 0.02T/MM3 Absolute Neutrophils (auto) 4.7T/MM3 Absolute Lymphocytes (auto) 1.5T/MM3 Absolute Monocytes (auto) 0.8T/MM3 Absolute Eosinophils (auto) 0.1T/MM3 Absolute Basophils (auto) 0.0T/MM3 Assessment & Plan Problems: (1) Myopathy Assessment & Plan: Continue with PT and OT to improve strength and stability. Plan of care to be reviewed next week. (2) Atrial fibrillation with rapid ventricular response Status: Acute Assessment & Plan: Stable, medical to manage. (3) Gait instability Status: Acute Assessment & Plan: PT and OT continue to work on gait instability and safety issues. (4) History of arthroplasty of left knee Status: Acute Assessment & Plan: Wound healing appropriately, no signs of cellulitis or infection. (5) Anemia following surgery Assessment & Plan: Medical to manage (6) Idiopathic progressive neuropathy Code Status Full Code Interventions to Obtain Goals PT Treatment Plan: Therapeutic Exercise, Gait Training, Functional Activities , Patient/Family Education OT Treatment Plan: ADL's (basic care), Ther. Exercise for ADL's, UE Functional Training, Balance Training, Pt./Family Education, IADL's Hospital Course Summary Disclaimer The hospital course summary below is not to be considered part of the above Progress Note. Hospital Course Summary 09/08/16 Continue on amiodarone 400 milligrams twice a day 7 days, end date 09/15. Then change to 200 milligrams daily Serial troponins trending down. Likely increase related to spontaneous A-fib with RVR. Continue with anticoagulation. Coumadin dosing being managed by pharmacy. INR today 2.48 Work on weaning down on oxygen as able. Recheck CBC on 09/11 to follow postoperative anemia. Continue to encourage work with PT and OT for ongoing postoperative strengthening and improve function. 09/09/16 Acutely went into A-fib RVR this morning during shower at 7 am. Rate up to 180 at times. Give one-time dose of Cardizem 10 milligrams IV as well as amiodarone 150 milligrams IV bolus. Did speak with Dr. Fleming and Grace Stallings APRN. Will hold therapy today and monitor cardiac telemetry. Continue with anticoagulation. Coumadin dosing being managed by pharmacy. INR today 2.89 Work on weaning down on oxygen as able. Oxycodone as needed for pain control Will continue to follow closely today TIM ALBERTO MD Sep 11, 2016 13:25
--- NOTE | 2016-09-11 13:28 | PNPDOC ---
IRU Subjective Date DATE: 09/11/16 TIME: 13:26 Subjective Patient up with physical therapy this morning. Showing improvement in FIM scores. IRU Objective Vital Signs Vital signs Vital Signs Date Time Temp Pulse Resp B/P Pulse Ox O2 Delivery O2 Flow Rate FiO2 09/11/16 12:10 99 20 133/49 92 Room Air 09/11/16 07:46 97.5 09/10/16 22:14 2.00 Telemetry Rhythm: Sinus Rhythm Height (Feet): 5 Height (Inches): 4.00 Weight (Kilograms): 58.500 General General Appearance: Alert, Orientated x 2 Respiratory (Brief) Respiratory: FOUND: clear all wooten, equal bilaterally, NOT FOUND: rales Cardiovascular (Brief) Cardiac: FOUND: regular rate, regular rhythm Capillary Refill: <2 sec Extremities (Brief) 1 - No signs of cellulitis noted, skin healthy, healing appropriately Laboratory Laboratory Laboratory Tests Test 09/09/16 13:40 09/10/16 05:01 09/10/16 20:01 09/11/16 04:34 Troponin I 0.052ng/ml Chemistry Specimen Hemolysis < 15 < 15 Prothromb Time International Ratio 2.61 2.02 Turbidity < 20 Sodium Level 142MEQ/L Potassium Level 3.4MEQ/L Chloride Level 98MEQ/L Carbon Dioxide Level 32MEQ/L Anion Gap 12MEQ/L Blood Urea Nitrogen 19.0MG/DL Creatinine 1.0MG/DL Glomerular Filtration Rate Calc 53 BUN/Creatinine Ratio 19RATIO Glucose Level 129MG/DL Calculated Osmolality 277MOSM/KG Calcium Level 9.6MG/DL Magnesium Level 2.1MG/DL Icterus Index < 2 White Blood Count 7.1T/MM3 Red Blood Count 3.03M/MM3 Hemoglobin 9.2GM/DL Hematocrit 29.7% Mean Corpuscular Volume 98.0UM3 Mean Corpuscular Hemoglobin 30.4UUG Mean Corpuscular Hemoglobin Concent 31.0GM/DL RDW Standard Deviation 44.9FL Platelet Count 257T/MM3 Mean Platelet Volume 9.4UM3 Immature Granulocyte % (Auto) 0.3% Neutrophils (%) (Auto) 66.2% Lymphocytes (%) (Auto) 20.8% Monocytes (%) (Auto) 11.1% Eosinophils (%) (Auto) 1.3% Basophils (%) (Auto) 0.3% Absolute Immature Granulocyte (auto 0.02T/MM3 Absolute Neutrophils (auto) 4.7T/MM3 Absolute Lymphocytes (auto) 1.5T/MM3 Absolute Monocytes (auto) 0.8T/MM3 Absolute Eosinophils (auto) 0.1T/MM3 Absolute Basophils (auto) 0.0T/MM3 Assessment & Plan Problems: (1) Myopathy Assessment & Plan: Patient improving with physical therapy and occupational therapy, continue plan of care. Review at team meeting on Sunday. (2) Atrial fibrillation with rapid ventricular response Status: Acute Assessment & Plan: Medical to manage (3) Gait instability Status: Acute Assessment & Plan: Working with physical therapy and occupational therapy, showing improvement. (4) History of arthroplasty of left knee Status: Acute (5) Anemia following surgery Assessment & Plan: Stable, medical to manage (6) Idiopathic progressive neuropathy Assessment & Plan: Adjust meds as needed Code Status Full Code Interventions to Obtain Goals PT Treatment Plan: Therapeutic Exercise, Gait Training, Functional Activities , Patient/Family Education OT Treatment Plan: ADL's (basic care), Ther. Exercise for ADL's, UE Functional Training, Balance Training, Pt./Family Education, IADL's Hospital Course Summary Disclaimer The hospital course summary below is not to be considered part of the above Progress Note. Hospital Course Summary 09/08/16 Continue on amiodarone 400 milligrams twice a day 7 days, end date 09/15. Then change to 200 milligrams daily Serial troponins trending down. Likely increase related to spontaneous A-fib with RVR. Continue with anticoagulation. Coumadin dosing being managed by pharmacy. INR today 2.48 Work on weaning down on oxygen as able. Recheck CBC on 09/11 to follow postoperative anemia. Continue to encourage work with PT and OT for ongoing postoperative strengthening and improve function. 09/09/16 Acutely went into A-fib RVR this morning during shower at 7 am. Rate up to 180 at times. Give one-time dose of Cardizem 10 milligrams IV as well as amiodarone 150 milligrams IV bolus. Did speak with Dr. Fleming and Grace Stallings APRN. Will hold therapy today and monitor cardiac telemetry. Continue with anticoagulation. Coumadin dosing being managed by pharmacy. INR today 2.89 Work on weaning down on oxygen as able. Oxycodone as needed for pain control Will continue to follow closely today TIM ALBERTO MD Sep 11, 2016 13:28
--- NOTE | 2016-09-11 13:53 | PNPDOC ---
UBALDO POPE V DIRECTOR REHABILITATION PROGRAM 09/11/16 1352: Subjective Date DATE: 09/11/16 TIME: 13:47 Subjective Consuelo is seen this morning on follow-up rounds. She is up in the chair, getting ready for lunch. She is currently on room air without evidence of distress. Denies having any palpitations or chest pain. Telemetry reveals she has remained in sinus rhythm. Denies difficulty with urination and bowels have moved once since surgery. Left knee pain is under good control. Objective Vital Signs Vital signs Vital Signs Date Time Temp Pulse Resp B/P Pulse Ox O2 Delivery O2 Flow Rate FiO2 09/11/16 12:10 99 20 133/49 92 Room Air 09/11/16 07:46 97.5 09/10/16 22:14 2.00 Telemetry Rhythm: Sinus Rhythm Height (Feet): 5 Height (Inches): 4.00 Weight (Kilograms): 58.500 General General Appearance: Alert, Orientated x 3, Cooperative, No Acute Distress Eyes (Brief) Eyes: FOUND: EOMI ENMT (Brief) ENMT: FOUND: mucosa moist, normal dentition, NOT FOUND: pharnyx erythema Neck (Brief) Neck: FOUND: midline, NOT FOUND: adenopathy, carotid bruits, tracheal deviation Respiratory (Brief) Respiratory: FOUND: clear all wooten, equal bilaterally, NOT FOUND: wheezes Cardiovascular (Brief) Cardiac: FOUND: regular rate, regular rhythm, NOT FOUND: murmur, pedal edema Capillary Refill: <2 sec Abdomen (Brief) Abdominal: FOUND: BS normo active x4, soft, NOT FOUND: distended, tender Extremities (Brief) Extremity : Side: Left Extremity Finding: FOUND: pain (knee) Lymphatic (Brief) Lymphatic: NOT FOUND: adenopathy Musculoskeletal (Brief) Musculoskeletal: NOT FOUND: tenderness Integumentary (Brief) Integumentary: FOUND: dry, pink, warm Neurologic (Brief) Neurological: FOUND: cranial 2-12 intact Psychiatric (Brief) Psychiatric: FOUND: alert, attentive, normal affect, oriented Laboratory Laboratory Laboratory Tests 09/10/16 20:01 Laboratory Tests 09/11/16 04:34 Assessment & Plan Problems: (1) History of arthroplasty of left knee Status: Acute (2) Anemia following surgery (3) Atrial fibrillation with rapid ventricular response Status: Acute (4) Anxiety Status: Chronic (5) Hypertension Status: Chronic (6) Coronary artery disease Status: Chronic (7) Aortic valve insufficiency Status: Chronic (8) Gait instability Status: Acute (9) Idiopathic progressive neuropathy (10) Aortic insufficiency (11) Carotid artery stenosis Status: Chronic (12) History of breast cancer Onset Date: ~ 2009 Status: Chronic (13) Degenerative arthritis of left knee Status: Chronic Plan/Intensity of Service 09/11/16 Has remained in sinus rhythm for the last 48 hours. Continues on oral amiodarone 200 milligrams daily. Continues on postoperative anticoagulation. INR today 2.02 Potassium down slightly at 3.4. Will start 10 milliequivalents of potassium daily. Oxycodone as needed for pain control Change MiraLAX to schedule daily for ongoing bowel motivation Continue to encourage work with PT and OT for ongoing strengthening Code Status Full Code Hospital Course Summary Disclaimer The hospital course summary below is not to be considered part of the above Progress Note. Hospital Course Summary 09/08/16 Continue on amiodarone 400 milligrams twice a day 7 days, end date 09/15. Then change to 200 milligrams daily Serial troponins trending down. Likely increase related to spontaneous A-fib with RVR. Continue with anticoagulation. Coumadin dosing being managed by pharmacy. INR today 2.48 Work on weaning down on oxygen as able. Recheck CBC on 09/11 to follow postoperative anemia. Continue to encourage work with PT and OT for ongoing postoperative strengthening and improve function. 09/09/16 Acutely went into A-fib RVR this morning during shower at 7 am. Rate up to 180 at times. Give one-time dose of Cardizem 10 milligrams IV as well as amiodarone 150 milligrams IV bolus. Did speak with Dr. Fleming and Grace Stallings APRN. Will hold therapy today and monitor cardiac telemetry. Continue with anticoagulation. Coumadin dosing being managed by pharmacy. INR today 2.89 Work on weaning down on oxygen as able. Oxycodone as needed for pain control Will continue to follow closely today 09/11/16 Has remained in sinus rhythm for the last 48 hours. Continues on oral amiodarone 200 milligrams daily. Continues on postoperative anticoagulation. INR today 2.02 Potassium down slightly at 3.4. Will start 10 milliequivalents of potassium daily. Oxycodone as needed for pain control Change MiraLAX to schedule daily for ongoing bowel motivation Continue to encourage work with PT and OT for ongoing strengthening LENO MERINO MD 09/11/162002: Assessment & Plan Assessment I have independently evaluated and examined this patient. I reviewed the chart, the patient's history, and the DIRECTOR REHABILITATION PROGRAM's documented findings as above. We discussed and formulated the assessment and plan as above with additions as below: Mrs. Neely denies chest pain or palpitations. She reports her knee doesn't hurt as much as it did previously and indicates she feels capable of discharging home with a walker at this time. Respirations are nonlabored with clear rest sounds. Regular cardiac rhythm. Trace bilateral lower extremity edema. EKG reviewed from this morning-sinus rhythm. Medically stable. Hemoglobin down slightly as his potassium. Iron supplement added to previously ordered potassium supplement. UBALDO POPE APRN Sep 11, 2016 13:52 LENO MERINO MD Sep 11, 2016 20:03
[2016-09-11 15:50] VITALS: BP 122/48; PULSE 75; RESP 16; TEMP 98.2; O2SAT 96
--- NOTE | 2016-09-11 15:59 | NUR ---
CM THIS WORKER SPOKE WITH PT ABOUT DC PLANNING. REVIEWED PT'S IRU POC WITH PT; SHE STATED SHE DOES NOT WANT TO SIGN BECAUSE SHE WANTS TO LEAVE. SHE SAID SHE IS WORRIED ABOUT THE COST OF THE BILL TO STAY HERE AT [facility]. THIS WORKER EXPLAINED THERE ARE DC NEEDS THAT NEED TO BE EXPLORED FIRST, SUCH THE NEED FOR HOME OXYGEN, AND DME, AND NEW MEDICATIONS. DISCUSSED HER PLAN OF HOME ALONE IN [place], AND EXPLAINED WE COULD SET UP HOME HEALTH. SHE SAID SHE DOES NOT WANT HOME HEALTH BECAUSE SHE HAS HAD IT IN THE PAST AND DID NOT LIKE IT. SHE SAID IT WAS "A WASTE OF MEDICARE DOLLARS." SHE SAID SHE WENT TO OUTPT PHYSICAL THERAPY AT [place] AND WOULD BE WILLING TO DO THIS AGAIN. SHE GAVE PERMISSION TO CONTACT HER NEICELILY, ABOUT DC PLANNING. THIS WORKER ASKED IRU DIRECTOR ABOUT COVERAGE TO STAY HERE; SHE SAID SHE WILL FOLLOW UP WITH THE BILLING OFFICE.
[2016-09-11] MEDS: POTASSIUM CHLORIDE 10 MEQ TABLET PO SCH (18:03)
[2016-09-11] MEDS: POLYETHYL.GLYCOL 3350 PACKET 17gm PO SCH (18:04)
--- NOTE | 2016-09-11 19:13 | NUR ---
Summary VS's stable. Explained pain scale to pt. and she has rated left knee pain a 1/10 all day. Scheduled Tylenol administered. Please see eMAR. Re-positioning and polar pack implemented for comfort. Mepilex dressing C/D/I. Bilateral pedal pulses palpable. Pt. has denied chest pain and SOA this shift. Pt. is currently resting in the recliner. Alarm is on. Report has been past on to production shift supervisor.
[2016-09-11 20:00] VITALS: BP 140/56; PULSE 68; RESP 20; TEMP 98.2; O2SAT 97
--- NOTE | 2016-09-12 01:20 | NUR ---
Chart Check 24 hour chart check completed
[2016-09-12] MEDS: OXYCODONE I.R. 5 MG TABLET PO PRN ×3 (02:00→21:29)
[2016-09-12 05:09] LABS: INR 2.75 (0.76-1.04)
--- NOTE | 2016-09-12 07:36 | NUR ---
Summary Consuelo is a pleasant and cooperative patient. She has reported pain and was medicated with prn and scheduled pain meds with adequate pain relief. She ambulates with fww gb and contact guard. Gait is steady. She has been continent of bladder with use of her own underwear.IV lock to her right hand remains intact and flushes well. Dressing to her left knee C/D/I. She slept half the night in the bed and the other night in her recliner. She has slept well.She is alert and oriented x three. Bedalarms and chair alarms intact.Call light within reach.Telemetry with SR with PVC.VSS.
--- NOTE | 2016-09-12 08:22 | NUR ---
COUMADIN CONSULT: 81yo F post orthopedic procedure, Bill with RVR. Was Warfarin naive. Started on Enoxaparin to bridge to therapeutic INR. Today's INR = 2.75 Will give Warfarin 0.5mg today. Will continue to monitor & make adjustments accordingly. Thank you.
[2016-09-12 08:44] VITALS: BP 148/58; PULSE 81; RESP 20
[2016-09-12] MEDS: FERROUS GLUCONATE 324 MG TABLET PO SCH ×2 (09:03→18:16)
[2016-09-12] MEDS: POTASSIUM CHLORIDE 10 MEQ TABLET PO SCH (09:03)
[2016-09-12] MEDS: DOCUSATE SODIUM 100 MG CAPSULE PO SCH ×2 (09:04→21:26)
[2016-09-12] MEDS: CALCIUM 600mg + VIT D 400 TABLET PO SCH ×3 (09:04→21:26)
[2016-09-12] MEDS: LETROZOLE 2.5 MG TABLET PO SCH (09:04)
[2016-09-12] MEDS: POLYETHYL.GLYCOL 3350 PACKET 17gm PO SCH (09:04)
[2016-09-12] MEDS: FUROSEMIDE 20 MG TABLET PO SCH (09:04)
[2016-09-12] MEDS: LISINOPRIL 20 MG TABLET PO SCH ×2 (09:05→21:27)
[2016-09-12] MEDS: AMIODARONE 200 MG TABLET PO SCH ×2 (09:05→21:27)
[2016-09-12] MEDS: VITAMIN E 1,000 UNIT CAPSULE PO SCH ×2 (09:05→10:05)
[2016-09-12 10:00] VITALS: PULSE 81
[2016-09-12] MEDS: ACETAMINOPHEN 325 MG TABLET PO SCH ×4 (10:05→21:28)
[2016-09-12] MEDS ORDERED: WARFARIN 1 MG TABLET PO SCH (12:00)
[2016-09-12 16:00] VITALS: BP 127/51; PULSE 70; RESP 20; TEMP 97.3; O2SAT 99
--- NOTE | 2016-09-12 16:48 | NUR ---
CM PT'S GRANDDAUGHTER, LILY, HERE VISITING PT AND REQUESTED TO SPEAK WITH THIS WORKER. THIS WORKER SPOKE WITH PT AND LILY. THEY BOTH ASKED WHY PT CAN'T BE DC'D. THIS WORKER EXPLAINED PT CAN LEAVE AT ANYTIME, HOWEVER, THE TEAM IS STILL WANTING TO WORK WITH HER (I.E. WITH OT). LILY AND PT STATED THEY WOULD LIKE TO AIM FOR A OR SUNDAY DC. LILY EXPLAINED THE ASSISTANCE THAT WILL BE PROVIDED TO PT: SHE SAID A FRIEND, ROBBIE, WILL BE STAYING WITH THE PT UPON DC AND WILL BE AVAILABLE TO ASSIST. LILY ALSO SAID ONE OF THE PT'S RELATIVES ([place]) LIVES 2 HOUSES DOWN FROM PT AND WILL BE AVAILABLE TO ASSIST NEEDED. LILY ALSO SAID SHE WILL BE TAKING TIME OFF NEXT WEEK AND WILL BE WITH THE PT; SHE SAID A FAMILY THEY WILL ASSESS WHAT FURTHER NEEDS THE PT HAS IN THE HOME. THEY SAID PT IS AGREEABLE TO COMMUNITY HEALTH. REVIEWED DME; THEY BOTH STATED PT WOULD NOT NEED ANY MORE DME (SHE [facility] HAS A 2WHEELED WALKER). REVIEWED NEW MEDICATION COUMADIN; LILY STATED THIS WOULD NOT BE A PROBLEM BECAUSE OTHER FAMILY MEMBERS HAVE HAD THIS AND HAVE HAD TO HAVE THEIR INR LEVELS CHECKED, ALSO. LILY STATED THAT ROBBIE WOULD DRIVE THE PT TO GET HER LEVELS CHECKED. DURING THE PAST PART OF THE CONVERSATION, OT WAS PRESENT AND SAID A DC FOR THE END OF THE WEEK WOULD PROBABLY BE FINE. Addendum: 09/12/16 at 1658 by LUPE CESPEDES Amended: Links added.
--- NOTE | 2016-09-12 19:00 | NUR ---
SHIFT SUMMARY PATIENT ALERT AND ORRIENTED X 3, C/O MILD PAIN 1-10 IN L KNEE, SCHEDULED TYLENOL GIVEN IN ADDITION TO ONE PRN DOSE OF OXYCODONE. PATIENT'S IV WAS LEAKING, PAINFUL TO FLUSH AND RED, NEW IV STARTED IN L HAND BY IV THERAPY. PATIENT UP WITH ONE WITH GAIT BELT AND WALKER. WILL CONT TO MONITOR.
[2016-09-12 21:30] VITALS: PULSE 61; RESP 20
[2016-09-12 22:53] VITALS: BP 110/48; PULSE 61; RESP 18; TEMP 97.9; O2SAT 98
--- NOTE | 2016-09-13 03:30 | NUR ---
Chart Check 24 hour chart check completed
--- NOTE | 2016-09-13 06:45 | NUR ---
Summary Consuelo is a pleasant and cooperative patient. She has reported pain and was medicated with prn pain meds with adequate pain relief. She ambulates with fww gb and contact guard. Gait is steady. She has been continent of bladder with use of her own underwear.IV lock to her left hand remains intact and flushes well. Dressing to her left knee C/D/I. She slept half the night in the bed and the other night in her recliner.Telemetry with SR with PVC.
[2016-09-13 08:00] VITALS: BP 103/42; PULSE 81; RESP 18; TEMP 98.2; O2SAT 93
[2016-09-13] MEDS: POLYETHYL.GLYCOL 3350 PACKET 17gm PO SCH (09:00)
[2016-09-13] MEDS: LETROZOLE 2.5 MG TABLET PO SCH (09:47)
[2016-09-13] MEDS: DOCUSATE SODIUM 100 MG CAPSULE PO SCH ×2 (09:47→21:52)
[2016-09-13] MEDS: CALCIUM 600mg + VIT D 400 TABLET PO SCH ×2 (09:47→21:59)
[2016-09-13] MEDS: FERROUS GLUCONATE 324 MG TABLET PO SCH ×2 (09:47→18:04)
[2016-09-13] MEDS: POTASSIUM CHLORIDE 10 MEQ TABLET PO SCH (09:48)
[2016-09-13] MEDS: VITAMIN E 1,000 UNIT CAPSULE PO SCH (09:48)
--- NOTE | 2016-09-13 09:48 | NUR ---
BP Meds Pts BP this morning was 103/42 with a HR of 81. Spoke with Akbar Adkins APRN for cardiology and obtained the okay to continue with the pts morning Metoprolol, Lisinopril, Lasix, and Amiodarone if pt is asymptomatic. Pt denied having any dizziness or lightheadedness, she was given the medications.
[2016-09-13] MEDS: LISINOPRIL 20 MG TABLET PO SCH ×2 (09:49→21:52)
[2016-09-13] MEDS: AMIODARONE 200 MG TABLET PO SCH ×2 (09:49→21:52)
[2016-09-13] MEDS: FUROSEMIDE 20 MG TABLET PO SCH (09:50)
[2016-09-13] MEDS: ACETAMINOPHEN 325 MG TABLET PO SCH ×4 (09:54→21:53)
[2016-09-13 10:36] LABS: INR 2.6 (0.90-1.23)
--- NOTE | 2016-09-13 11:10 | NUR ---
COUMADIN CONSULT: 81yo F post orthopedic procedure, Bill with RVR. The patient was Warfarin naive. The patient was also started on Enoxaparin 40 mg q24h to bridge to a therapeutic INR. The Enoxaparin was discontinued 09/08/16. Date INR Dose 09/05 ---- 4 mg 09/06 1.21 4 mg 09/07 2.22 Held 09/08 2.48 2 mg (Enoxaparin discontinued) 09/09 2.89 Held 09/10 2.61 1 mg 09/11 2.02 2 mg 09/12 2.75 0.5 mg 09/13 2.60 Plan 1 mg Today's INR = 2.60. I plan to give Warfarin 0.5 mg today. The pharmacy will continue to monitor & make adjustments accordingly. Thank you for the Warfarin Protocol, Yohan Blake RPh.
[2016-09-13] MEDS ORDERED: WARFARIN 1 MG TABLET PO SCH (12:00)
[2016-09-13] MEDS: OXYCODONE I.R. 5 MG TABLET PO PRN ×3 (12:46→21:58)
--- NOTE | 2016-09-13 13:08 | PNPDOC ---
Subjective Date DATE: 09/13/16 TIME: 12:56 Humberto Cordero is seen today while ambulating with PT. She states that other than her bad knee, she is feeling good. No further episodes of A-fib RVR, No chest pain or shortness of breath. Voiding without difficulty and bowels moved 09/10. Weaned down off oxygen. Ambulating with walker and assistance. Objective Vital Signs Vital signs Vital Signs Date Time Temp Pulse Resp B/P Pulse Ox O2 Delivery O2 Flow Rate FiO2 09/13/16 08:00 98.2 81 18 103/42 93 Room Air 09/10/16 22:14 2.00 Telemetry Rhythm: Sinus Rhythm Height (Feet): 5 Height (Inches): 4.00 Weight (Kilograms): 58.500 General General Appearance: Alert, Orientated x 3, Cooperative, No Acute Distress Eyes (Brief) Eyes: FOUND: EOMI ENMT (Brief) ENMT: FOUND: mucosa moist, normal dentition, NOT FOUND: pharnyx erythema Neck (Brief) Neck: FOUND: midline, NOT FOUND: adenopathy, carotid bruits, tracheal deviation Respiratory (Brief) Respiratory: FOUND: clear all wooten, equal bilaterally, NOT FOUND: wheezes Cardiovascular (Brief) Cardiac: FOUND: regular rate, regular rhythm, NOT FOUND: murmur, pedal edema Capillary Refill: <2 sec Abdomen (Brief) Abdominal: FOUND: BS normo active x4, soft, NOT FOUND: distended, tender Lymphatic (Brief) Lymphatic: NOT FOUND: adenopathy Musculoskeletal (Brief) Musculoskeletal: FOUND: tenderness (left knee) Integumentary (Brief) Integumentary: FOUND: dry, pink, warm Neurologic (Brief) Neurological: FOUND: cranial 2-12 intact Psychiatric (Brief) Psychiatric: FOUND: alert, attentive, normal affect, oriented Assessment & Plan Problems: (1) History of arthroplasty of left knee Status: Acute (2) Anemia following surgery Status: Acute (3) Atrial fibrillation with rapid ventricular response Status: Acute (4) Anxiety Status: Chronic (5) Hypertension Status: Chronic (6) Coronary artery disease Status: Chronic (7) Aortic valve insufficiency Status: Chronic (8) Gait instability Status: Acute (9) Idiopathic progressive neuropathy (10) Aortic insufficiency (11) Carotid artery stenosis Status: Chronic (12) History of breast cancer Onset Date: ~ 2009 Status: Chronic (13) Degenerative arthritis of left knee Status: Chronic Assessment Plan/Intensity of Service 09/13/16 Overall doing good and making gains. Continues on cardiac telemetry and remains in sinus rhythm. Continue on Amiodarone daily. Continues on postoperative anticoagulation. INR today 2.6 Oxycodone as needed for pain control Change MiraLAX to schedule daily for ongoing bowel motivation Continue to encourage work with PT and OT for ongoing strengthening Code Status Full Code Hospital Course Summary Disclaimer The hospital course summary below is not to be considered part of the above Progress Note. Hospital Course Summary 09/08/16 Continue on amiodarone 400 milligrams twice a day 7 days, end date 09/15. Then change to 200 milligrams daily Serial troponins trending down. Likely increase related to spontaneous A-fib with RVR. Continue with anticoagulation. Coumadin dosing being managed by pharmacy. INR today 2.48 Work on weaning down on oxygen as able. Recheck CBC on 09/11 to follow postoperative anemia. Continue to encourage work with PT and OT for ongoing postoperative strengthening and improve function. 09/09/16 Acutely went into A-fib RVR this morning during shower at 7 am. Rate up to 180 at times. Give one-time dose of Cardizem 10 milligrams IV as well as amiodarone 150 milligrams IV bolus. Did speak with Dr. Fleming and Grace Stallings APRN. Will hold therapy today and monitor cardiac telemetry. Continue with anticoagulation. Coumadin dosing being managed by pharmacy. INR today 2.89 Work on weaning down on oxygen as able. Oxycodone as needed for pain control Will continue to follow closely today 09/11/16 Has remained in sinus rhythm for the last 48 hours. Continues on oral amiodarone 200 milligrams daily. Continues on postoperative anticoagulation. INR today 2.02 Potassium down slightly at 3.4. Will start 10 milliequivalents of potassium daily. Oxycodone as needed for pain control Change MiraLAX to schedule daily for ongoing bowel motivation Continue to encourage work with PT and OT for ongoing strengthening 09/13/16 Overall doing good and making gains. Continues on cardiac telemetry and remains in sinus rhythm. Continue on Amiodarone daily. Continues on postoperative anticoagulation. INR today 2.6 Oxycodone as needed for pain control Change MiraLAX to schedule daily for ongoing bowel motivation Continue to encourage work with PT and OT for ongoing strengthening UBALDO POPE APRN Sep 13, 2016 13:01
--- NOTE | 2016-09-13 14:07 | PDIRUTEAM ---
Multidisciplinary Team Meeting Nursing Hx Incontinence: No Bladder Goal: 7+ Complete [place] Starr Y/N: No Bladder Continent or Incontine: Continent Incontinent Product Used: Patient's Own Underwear Number of Times Incontinent of: 0 Cleaning Ability-Bladder: 6 Modified [place] Bladder Incontinence Managemen: 0 Activity Does Not Occur Bowel Goal: 7+ Complete [place] Colostomy Y/N: No Bowel Incontinent/Continent: Continent Bowel Number of Accidents: 0 Number of times Incontinent of: 0 Cleaning Ability-Bowel: 6 Modified [place] Colostomy Care: 0 Activity Does Not Occur Bowel Incontinence Management: 0 Activity Does Not Occur Toileting Ability: 6 Modified [place] Vital Signs Vital Signs Date Time Temp Pulse Resp B/P Pulse Ox O2 Delivery O2 Flow Rate FiO2 09/13/16 08:00 98.2 81 18 103/42 93 Room Air 09/10/16 22:14 2.00 Current Medications Current Medications Medications (Trade) Dose Ordered Sig/Yoly Route PRN Reason Start Time Stop Time Status Last Admin Dose Admin Acetaminophen (Tylenol Regular Strength) 650 mg QID PO 09/06/16 21:00 09/13/16 12:11 Calcium/Vitamin D (Caltrate + D) 2 tab BID PO 09/06/16 21:00 09/13/16 09:47 Furosemide (Lasix) 20 mg DAILY PO 09/07/16 09:00 09/13/16 09:50 Letrozole (Femara) 2.5 mg DAILY PO 09/07/16 09:00 09/13/16 09:47 Lisinopril (Prinivil) 20 mg BID PO 09/06/16 21:00 09/13/16 09:49 Lorazepam (Ativan) 0.5 mg HS PRN PO SLEEP 09/06/16 20:30 09/08/16 02:59 Oxycodone HCl (Roxicodone) 1-3 Q3H PRN PO BREAKTHROUGH PAIN 09/06/16 20:30 09/13/16 12:46 Vitamin E (Vitamin E 1,000 Units) 1,000 unit DAILY PO 09/07/16 09:00 09/13/16 09:48 Enoxaparin Sodium (Lovenox) 40 mg DAILY SQ 09/07/16 09:00 09/08/16 09:25 DC 09/07/16 09:42 Docusate Sodium (Colace) 100 mg BID PO 09/07/16 09:00 09/13/16 09:47 Amiodarone HCl (Pacerone) 400 mg BID PO 09/07/16 18:30 09/13/16 21:00 09/13/16 09:49 Warfarin Sodium (COUMADIN 2 mg) 2 mg NOON PO 09/08/16 12:00 09/08/16 12:15 DC 09/08/16 12:25 Al Hydroxide/Mg Hydroxide (Maalox) 30 ml Q3-4H PRN PO INDIGESTION 09/09/16 11:15 09/09/16 11:10 Calcium Carbonate (TUMS Regular Strength) 1,000 mg PRN PRN PO 09/09/16 17:15 09/09/16 17:57 Warfarin Sodium (COUMADIN 1 mg) 1 mg NOON PO 09/10/16 12:00 09/11/16 08:08 DC 09/10/16 12:24 Bisacodyl (Dulcolax) 10 mg DAILY PRN RECTALLY CONSTIPATION 09/10/16 13:30 09/10/16 16:23 Warfarin Sodium (COUMADIN 2 mg) 2 mg NOON PO 09/11/16 12:00 09/11/16 12:15 DC 09/11/16 12:21 Polyethylene Glycol (Miralax) 17 g DAILY PO 09/11/16 14:00 09/12/16 09:04 Potassium Chloride (Kdur) 10 meq WB PO 09/11/16 14:00 09/13/16 09:48 Metoprolol Tartrate (Lopressor) 25 mg BIDWM PO 09/11/16 17:30 09/13/16 09:49 Ferrous Gluconate (Fergon) 324 mg BIDWM PO 09/12/16 08:00 09/13/16 09:47 Warfarin Sodium (COUMADIN 1 mg) 0.5 mg NOON PO 09/12/16 12:00 09/12/16 13:00 DC 09/12/16 12:28 Warfarin Sodium (COUMADIN 1 mg) 1 mg NOON PO 09/13/16 12:00 09/13/16 12:30 DC 09/13/16 12:10 Physical Therapy Bed Transfer Ability: 5 Supervision/Setup Bed Transfer Assistance Needed: 1 Person Bed FIM Score Reason: requires assist for LEs into and out of bed Chair Transfer Ability: 5 Supervision/Setup Chair Transfer Assistance Need: 1 Person Chair FIM Score Reason: VC for safety required Overall Wheelchair Transfer Ab: 5 Supervision/Setup Wheelchair Transfer Assistance: 1 Person Overall Toilet / Commode Trans: 6 Modified [place] Ambulation Ability: 2 Maximum Assistance Ambulation Assistance Needed: 1 Person Walk FIM Score Reason: Pt requires min (A) for gait but is limited to < 150 ft. Ambulation Distance: 118 Comments Walking improving. Occupational Therapy Grooming Ability: 6 Modified [place] Grooming FIM Score Reason: seated in w/c at sink Bathing Ability: 6 Modified [place] Upper Body Dressing Ability: 6 Modified [place] Lower Body Dressing Ability: 6 Modified [place] Lower Body Dressing Assistance: 1 Person Toileting Assistance Needed: 1 Person Toileting FIM Score Reason: stand by Comments Improving, wants to go home sunday if possible. Care Plan Condition at time of discharge: Fair IRU Discharge Disposition: Home, self care Interventions/Goals Family preparing for Sunday d/c. Pt wants to leave Sunday. Plan d/c Sunday to home with outpatient.n Has support in place. TIM ALBERTO MD Sep 13, 2016 14:07
[2016-09-13 16:05] VITALS: BP 126/49; PULSE 65; RESP 18; TEMP 98.1; O2SAT 95
--- NOTE | 2016-09-13 16:37 | NUR ---
Nutrition Risk R/T poor appetite > 3 days while in the hospital Diet Order: Regular Intake: 25-50% Since admission Pt reports her appetite is better today . Pt reports she drinks mighty shakes at home that [facility] at [facility]. Pt reports she has been drinking them here 1 x per day. Pt expressed willingness to have them with each meal FANS notified to send magic cup and/or mighty shake TID with meals RD available at ext [phone]
--- NOTE | 2016-09-13 19:50 | NUR ---
Shift Summary Pt ambulates well with assist of 1, FWW, and gait belt. Ate well for meals, did not need assist with her tray, ambulated to the dining room. Has been continent this shift, able to manage her own clothing and cares. Reported discomfort this shift ranging from a 3-5/10 received 1 Roxicodone IR 5mg at 1246 and 2 Roxicodone IR 5mg at 1554, she also remains on Tylenol 650mg scheduled. Worked well with therapy today. IVL to the Lt hand flushed well. Telemetry has been running sinus rhythm with PVCs. When in bed or the chair the alarm is in use and call light is within reach.
[2016-09-13 19:59] VITALS: BP 114/44; PULSE 69; TEMP 98.1; O2SAT 94
[2016-09-13] MEDS: CALCIUM CARBONATE 500mg Chewable TAB PO PRN (21:52)
[2016-09-14] MEDS: OXYCODONE I.R. 5 MG TABLET PO PRN ×4 (03:30→22:32)
--- NOTE | 2016-09-14 05:00 | NUR ---
Chart Check 24 hour chart check completed
--- NOTE | 2016-09-14 06:39 | NUR ---
Summary Patient has been alert and oriented, pleasant and cooperative, though hard to understand at times. She has ambulated to the restroom with FWW and gait belt and provided her own pamela care. She has had some pain to her surgical leg, and had pain medication for it times two. She is in bed with bed alarm on, side rails up times two and call light within reach.
[2016-09-14 07:39] VITALS: BP 137/49; PULSE 71; RESP 20; TEMP 98.1; O2SAT 95
[2016-09-14] MEDS: ACETAMINOPHEN 325 MG TABLET PO SCH ×4 (08:35→22:32)
[2016-09-14] MEDS: FERROUS GLUCONATE 324 MG TABLET PO SCH ×2 (08:36→18:10)
[2016-09-14] MEDS: DOCUSATE SODIUM 100 MG CAPSULE PO SCH ×2 (08:36→22:32)
[2016-09-14] MEDS: POTASSIUM CHLORIDE 10 MEQ TABLET PO SCH (08:36)
[2016-09-14] MEDS: VITAMIN E 1,000 UNIT CAPSULE PO SCH (08:37)
[2016-09-14] MEDS: LETROZOLE 2.5 MG TABLET PO SCH (08:37)
[2016-09-14] MEDS: POLYETHYL.GLYCOL 3350 PACKET 17gm PO SCH (08:37)
[2016-09-14] MEDS: FUROSEMIDE 20 MG TABLET PO SCH (08:37)
[2016-09-14] MEDS: LISINOPRIL 20 MG TABLET PO SCH ×2 (08:37→22:33)
[2016-09-14] MEDS: AMIODARONE 200 MG TABLET PO SCH (08:37)
[2016-09-14] MEDS: CALCIUM 600mg + VIT D 400 TABLET PO SCH ×2 (08:38→22:31)
[2016-09-14 09:47] LABS: INR 3.39 (0.76-1.04); PROTHROMBIN TIME 36.9 SEC (9.31-12.49)
--- NOTE | 2016-09-14 13:17 | NUR ---
CM THIS WORKER VISITED PT IN ROOM. REVIEWED D/C WITH PT, PT STATED LILY WILL BE PICKING HER UP AT NOON TO RETURN BACK TO [place]. THIS WORKER CLARIFIED IF SHE WANTED [facility] OR OUT PATIENT PHYSICAL THERAPY. PT STATED SHE DOES NOT WANT EITHER HOME HEALTH NOR OUTPATIENT PHYSICAL THERAPY, STATING "THEY HAVE DONE NOTHING FOR ME". THIS WORKER ENCOURAGED THIS PT TO TRY A DIFFERENT AGENCY, PT WAS PERSISTENT IN SHE DIDN'T WANT ANY HOME HEALTH NOR PHYSICAL THERAPY. PT STATED SHE HAS FAMILY AND FRIENDS THAT WILL ASSIST WITH HELPING HER IF SHE NEEDS IT. REVIEWED IRU CARE PLAN WITH PT, PT AGREED AND SIGNED. THIS WORKER REVIEWED IM LETTER WITH PT, PT REFUSED TO SIGN STATING "I HAVE SIGNED TOO MUCH ALREADY". PT VERBALLY AGREED SHE IS READY TO BE DISCHARGED AND TO GO HOME. PT ENCOURAGED TO CALL THIS WORKER WITH ANY QUESTIONS/NEEDS.
[2016-09-14] MEDS ORDERED: METO25TA6 PO (15:32)
[2016-09-14] MEDS ORDERED: FERR324T PO (15:32)
[2016-09-14] MEDS ORDERED: AMIO200T7 PO (15:32)
[2016-09-14 16:00] VITALS: BP 133/43; PULSE 64; RESP 18; TEMP 98.3; O2SAT 90
--- NOTE | 2016-09-14 18:00 | NUR ---
SHIFT SUMMARY PATIENT ALERT AND ORIENTED. C/O PAIN IN L KNEE, SCHEDULED TYLENOL AND PRN OXYCODONE GIVEN. PATIENT VERBALIZED PAIN RELIEF. PATIENT UP WITH ONE ASSIST WITH GAIT BELT AND WALKER. PATIENT TOLERATED MEALS WELL. WILL CONT TO MONITOR.
[2016-09-14 23:15] VITALS: BP 116/45; PULSE 60; RESP 18; TEMP 98.3; O2SAT 93
[2016-09-15] MEDS: OXYCODONE I.R. 5 MG TABLET PO PRN ×2 (03:01→13:35)
[2016-09-15 05:28] LABS: INR 3.09 (0.76-1.04); PROTHROMBIN TIME 33.7 SEC (9.31-12.49)
[2016-09-15 05:35] LABS: ANION GAP 10 MEQ/L (5-15); BUN/CREATININE RATIO 22 RATIO (6-26); CALCIUM 8.9 MG/DL (8.4-10.2); CHLORIDE 100 MEQ/L (98-107); CO2 - CARBON DIOXIDE 33 MEQ/L (22-30); GLOMERULAR FILTRATION RATE 53; GLUCOSE 93 MG/DL (65-110); POTASSIUM 4.1 MEQ/L (3.6-5); SODIUM 143 MEQ/L (134-144)
--- NOTE | 2016-09-15 07:00 | NUR ---
Summary Patient alert and oriented times three this shift, pleasant and cooperative. She has been up to restroom a few times using FWW and gait belt and has been continent. She reported burning with urination and UA was ordered. She also had some low back pain during the night. She required pain medication a couple of times during the night, and sat up in recliner the last part of the night to relieve back. After giving report, patient used call light, as her IV dressing had came loose and IV had come out. Hospitalist okayed leaving IV out as patient was discharging today. When in bed or chair call light has been with reach and alarm on. In bed side rails were up times two.
[2016-09-15 07:33] VITALS: BP 139/52; PULSE 74; RESP 18; TEMP 97.6
[2016-09-15 08:00] VITALS: PULSE 74; RESP 18
[2016-09-15 08:36] LABS: BLOOD, URINE 2+ (NEGATIVE); COLOR,URINE YELLOW (YELLOW); LEUKOCYTE ESTERASE ,URINE 2+ (NEGATIVE); NITRITE,URINE POSITIVE (NEGATIVE); UROBILINOGEN,URINE 0.2 EU/DL (NORMAL)
--- NOTE | 2016-09-15 08:46 | NUR ---
COUMADIN CONSULT: 81yo F post orthopedic procedure. Has A.Fib with RVR, but Warfarin naive. Started on Enoxaparin 40 mg q24h to bridge to therapeutic INR. Drug - Drug interaction with Amiodarone which can significantly increase INR's. Date INR Dose 09/05 ---- 4 mg 09/06 1.21 4 mg 09/07 2.22 Held 09/08 2.48 2 mg (Enoxaparin discontinued) 09/09 2.89 Held 09/10 2.61 1 mg 09/11 2.02 2 mg 09/12 2.75 0.5 mg 09/13 2.60 1 mg 09/14 3.39 DOSE HELD 09/15 3.09 WILL HOLD DOSE AGAIN TODAY Will continue to monitor & make adjustments accordingly. Thank you
[2016-09-15 08:56] LABS: BACTERIA,URINE 4+ (NEGATIVE); SQUAMOUS EPITHELIAL CELL,UR 0-5; WBC,URINE TNTC /HPF (0-5)
[2016-09-15 08:57] LABS: RBC,URINE 0-1 /HPF (0-3)
[2016-09-15] MEDS: FUROSEMIDE 20 MG TABLET PO SCH ×2 (09:00→09:05)
[2016-09-15] MEDS: AMIODARONE 200 MG TABLET PO SCH (09:04)
[2016-09-15] MEDS: POTASSIUM CHLORIDE 10 MEQ TABLET PO SCH (09:04)
[2016-09-15] MEDS: DOCUSATE SODIUM 100 MG CAPSULE PO SCH (09:04)
[2016-09-15] MEDS: LETROZOLE 2.5 MG TABLET PO SCH (09:04)
[2016-09-15] MEDS: VITAMIN E 1,000 UNIT CAPSULE PO SCH (09:04)
[2016-09-15] MEDS: POLYETHYL.GLYCOL 3350 PACKET 17gm PO SCH (09:04)
[2016-09-15] MEDS: FERROUS GLUCONATE 324 MG TABLET PO SCH (09:04)
[2016-09-15] MEDS: LISINOPRIL 20 MG TABLET PO SCH (09:05)
[2016-09-15] MEDS: CALCIUM 600mg + VIT D 400 TABLET PO SCH (09:05)
[2016-09-15] MEDS: ACETAMINOPHEN 325 MG TABLET PO SCH ×2 (09:06→12:42)
[2016-09-15] MEDS ORDERED: CEPHALEXIN 500 MG CAPSULE PO SCH (10:45)
[2016-09-15] MEDS ORDERED: CEPH-583 PO (10:49)
[2016-09-15] MEDS ORDERED: WARF1TAB47 PO (10:49)
--- NOTE | 2016-09-15 12:00 | NUR ---
UA UA retrieved this A.M. per orders. Pt. denies burning/discomfort with urination this A.M., but urine is noted to be cloudy. UA noted to come back with 4+ Bacteria. Notified VINOD EdwardsN. Pt. is noted to have been started on Keflex. Please see eMAR. Pt. notified. Will continue to monitor.
--- NOTE | 2016-09-15 14:20 | NUR ---
Discharge Summary VS's stable. Pt. is on RA. She has denied pain and nausea. I/O adequate. Pt. did have a formed moderate BM this A.M. She is supervision with transfers with FWW and gait belt. She takes meds whole. Pt. has rated ache left knee pain a 4/10 this shift. Scheduled Tylenol and Scheduled Florence given. Please see eMAR. Polar pack implemented. Pt. refused Lasix this A.M. reporting that she will take it when she gets home. She reports that there are no rest stops on the highway. Pt. lives in [place]. Prescriptions called into [facility] on [address] in [place] per pt. request. Mendez, Theater Education Teacher spoke to pt. about Outpt. therapy. Pt. is wheeled out to front entrance by this RN and HOUSING MANAGEMENT OFFICER. Family friend here to drive pt. home. Pt. is discharged home at this time.
--- NOTE | 2016-09-15 14:21 | NUR ---
CM PT AND FRIEND ROBBIE REQUESTED TO SPEAK WITH THIS WORKER. THEY SAID PT ACTUALLY WANTS OUTPT THERAPY AT [facility] IN [place]. THIS WORKER OBTAINED ORDER, CALLED [facility] AND SPOKE WITH JENNY. WHILE IN PT'S ROOM, THIS WORKER SCHEDULED FIRST APPOINTMENT FOR 10 AM, SEPTEMBER 19. ORDERS/NOTES WILL BE FAXED, FAX#[phone].
--- NOTE | 2016-09-21 10:58 | NUR ---
[facility]ED [facility] FOLLOW UP PHONE CALL #1, NO ANSWER, LEFT VOICE MESSAGE TO RETURN CALL TO CM.
== END 2016-09-15 14:20 | disposition home or self-care (01) | DRG 92 ==
PROVIDERS: ADMIT Family Medicine; ATTEND Family Medicine
PROC: F07Z9FZ Gait Training/Functional Ambulation Treatment using Assistive, Adaptive, Supportive or Protective Equipment (ICD-10-PCS; principal; 2016-09-06)
PROC: F07M6ZZ Therapeutic Exercise Treatment of Musculoskeletal System - Whole Body (ICD-10-PCS; 2016-09-06)
PROC: F08Z4ZZ Home Management Treatment (ICD-10-PCS; 2016-09-06)
DX: G72.9 Myopathy, unspecified (principal); I25.810 Atherosclerosis of coronary artery bypass graft(s) without angina pectoris; R26.89 Other abnormalities of gait and mobility; I48.91 Unspecified atrial fibrillation; D64.9 Anemia, unspecified; G60.3 Idiopathic progressive neuropathy; I10 Essential (primary) hypertension; J43.9 Emphysema, unspecified; M17.12 Unilateral primary osteoarthritis, left knee; I35.1 Nonrheumatic aortic (valve) insufficiency; F17.200 Nicotine dependence, unspecified, uncomplicated
CPT/HCPCS: 36415; 36416; 80048; 81001; 81003; 83735; 84443; 84484; 85025; 85610; 87077; 87086; 87186; 93005